=== PATIENT | female | born 1990 | race Caucasian/White ===

== ENCOUNTER 2020-06-03 13:20 | Emergency (ER) | payer OTHER, SELFPAY ==
[2020-06-03 13:37] VITALS: BP 123/86; PULSE 100; RESP 18; TEMP 37.2; O2SAT 97; BMI 43.2
[2020-06-03] MEDS: Lidocaine HCl 2 % MPF 5 ML VIAL SUBCUT (13:56)
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
== END 2020-06-03 14:15 | disposition home or self-care (01) ==
PROVIDERS: Emergency Provider Emergency Medicine Emergency Medical Services; PCP Internal Medicine
DX: S61.411A Laceration without foreign body of right hand, initial encounter (principal); W27.8XXA Contact with other nonpowered hand tool, initial encounter; Y93.89 Activity, other specified; Y92.012 Bathroom of single-family (private) house as the place of occurrence of the external cause; Y99.9 Unspecified external cause status
CPT/HCPCS: 12002; 99283; 99284

== ENCOUNTER → 2020-09-27 08:04 | Outpatient (BNVA) | payer OTHER, SELFPAY | PROVIDERS: PCP Internal Medicine; Visit Provider Surgery ==

== ENCOUNTER 2020-11-14 13:53 | Outpatient (REF) | payer OTHER, SELFPAY ==
--- NOTE | ~2020-11-14 | XR_ITS ---
EXAMINATION: XR CHEST CLINICAL INFORMATION: Moderate/severe obesity due to excessive calories. COMPARISON: Chest: 07/26/2018 TECHNIQUE: 2 views of the chest were obtained. FINDINGS: No significant abnormality is noted involving the heart, lungs, mediastinum, bony thorax or soft tissues. XR/XR chest 2V IMPRESSION: Unremarkable chest examination.
--- NOTE | ~2020-11-14 | US_ITS ---
EXAMINATION: PELVIC ULTRASOUND CLINICAL INFORMATION: Pain COMPARISON: Previous exam most recent March 2019 TECHNIQUE: Transabdominal and transvaginal pelvic ultrasound was performed. Transvaginal exam was performed for better visualization of the uterus and ovaries. FINDINGS: The uterus is anteverted and measures 9.1 x 4 x 5 cm in dimension. The endometrium is difficult to define. Endometrial thickness measures 0.7 cm. The uterus appears heterogeneous in echotexture and is slightly hyperechoic with numerous small cystic areas. Findings are questionable for adenomyomatosis. There are nabothian cysts in the cervix. The ovaries are normal-appearing. The right ovary measures 2.7 x 2 x 1.9 cm and the left ovary measures 3.5 x 1.7 x 2.2 cm. There is no fluid in the pelvis. US/US pelvic and transvaginal IMPRESSION: Heterogeneous appearing uterus questionable for adenomyosis.
== END 2020-11-14 13:54 | disposition home or self-care (01) ==
LOC: HO.HMGCX 13:53
PROVIDERS: PCP Nurse Practitioner Family; Referring Provider Emergency Medicine; Visit Provider Nurse Practitioner Family
DX: R10.2 Pelvic and perineal pain (principal); R05 Cough; E66.01 Morbid (severe) obesity due to excess calories; J45.909 Unspecified asthma, uncomplicated
CPT/HCPCS: 71046; 76830; 76856

== ENCOUNTER 2021-04-28 08:38 | Outpatient (REF) | payer OTHER, SELFPAY ==
[2021-04-28 10:19] LABS: Binax Internal Control QC Valid; Binax Now Covid-19 Ag Negative (Negative)
== END 2021-04-28 08:39 | disposition home or self-care (01) ==
LOC: HO.LAB 08:38
PROVIDERS: Visit Provider Internal Medicine
DX: Z20.822 Contact with and (suspected) exposure to COVID-19 (principal)
CPT/HCPCS: 36415; C9803

== ENCOUNTER 2021-06-28 13:18 | Outpatient (REF) | payer OTHER, SELFPAY ==
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
--- NOTE | 2021-06-28 15:00 | MHC.AU.HAS ---
Hearing Aid Evaluation Date of Visit: 06/28/21 Historical Information: Description of Hearing: Moderate SNHL in the right ear, moderate to moderately-severe SNHL in the left ear. Current personal amplification information, if applicable: 2017 Phonak Audeo N26-Lombir right ear - DAMAGED Summary: New binaural amplification is recommended based on Ms. Adair's hearing loss, the condition of her current hearing aid, and her shared listening needs. Discussed options. Recommend staying with ELLY style hearing aids. Hearing Aid Prescription: Based on the individual?s shared listening needs, communication environments, dexterity, desire for connectivity, and personal preferences, the following prescription for amplification has been made: Right ear: Cosmetic Sales: Phonak Model: Audeo P70-13T Battery Size: 13 Color: P4 Oil Sprayer: 1 M Type of Mold: cShell Left ear: Left ear prescription to be same as Right Hearing Aid above: Cosmetic Sales: Phonak Model: Audeo P70-13T Battery Size: 13 Color: P4 Oil Sprayer: 1 M Type of Mold: cShell Plan of Care: Michel quote will be sent to [facility] after determining her eligibility. Hearing aids will be ordered if/when approved. Primary Diagnosis: H90.3 Bilateral Sensorineural Hearing Loss Signature: Provider: Thu Recio, CCC-A
--- NOTE | 2021-06-28 15:14 | MHC.AU.MED ---
Medical Clearance for Hearing Instrumentation Date: 06/28/21 Patient Name: Rain Adair Date of : 1990 Referring Provider: Shahla Rocha MD We have seen your patient on 06/28/21 and have determined that they are a candidate for amplification (See accompanying report). Specifically, they would benefit from: Hearing aid use in both ears There is a statute that addresses Medical Evaluation Requirements prior to fitting a patient with a hearing aid. According to [place] statute 265 CMR:6.03(1), (a) General. Except as provided in 265 CMR 6.03(1)(b), a asphalt screed operator shall not sell a hearing aid unless the prospective user has presented to the asphalt screed operator a written statement signed by a licensed physician that states that the patient's hearing loss has been medically evaluated and the patient may be considered a candidate for a hearing aid. The medical evaluation must have taken place within the preceding six months. Please note: Due to the [place] Statute referenced above, we cannot accept a signature other than that of a licensed physician. LOW ALTITUDE AIR DEFENSE OFFICER and PA signatures cannot be accepted. I am in agreement with the above recommendation. There is no medical contraindication for hearing instrumentation. Physician Signature Date Physician Name (Printed)
== END 2021-06-28 13:19 | disposition home or self-care (01) ==
LOC: HO.SH 13:18
PROVIDERS: Visit Provider Internal Medicine
DX: H91.91 Unspecified hearing loss, right ear (principal)
CPT/HCPCS: 92557; 92567

== ENCOUNTER 2021-07-05 17:01 | Outpatient (REF) | payer OTHER, SELFPAY | END 2021-07-05 17:02 | disposition home or self-care (01) | LOC: HO.HAP 17:01 | PROVIDERS: Visit Provider Nurse Practitioner Family | DX: Z13.89 Encounter for screening for other disorder (principal) ==

== ENCOUNTER 2021-07-21 14:25 | Outpatient (REF) | payer SELFPAY | END 2021-07-21 14:26 | disposition home or self-care (01) | LOC: HO.HAP 14:25 | PROVIDERS: Visit Provider Nurse Practitioner Family | DX: Z13.89 Encounter for screening for other disorder (principal) ==

== ENCOUNTER 2021-07-31 14:54 | Outpatient (REF) | payer OTHER, SELFPAY | END 2021-07-31 14:55 | disposition home or self-care (01) | LOC: HO.HAP 14:54 | PROVIDERS: Visit Provider Internal Medicine | DX: Z13.89 Encounter for screening for other disorder (principal) ==

== ENCOUNTER 2021-08-03 15:45 | Outpatient (REF) | payer SELFPAY | END 2021-08-03 15:46 | disposition home or self-care (01) | LOC: HO.HAP 15:45 | PROVIDERS: Visit Provider Nurse Practitioner Family | DX: Z13.89 Encounter for screening for other disorder (principal) ==

== ENCOUNTER 2021-08-23 11:14 | Outpatient (REF) | payer OTHER, SELFPAY | END 2021-08-23 11:15 | disposition home or self-care (01) | LOC: HO.HAP 11:14 | PROVIDERS: PCP Internal Medicine; Visit Provider Internal Medicine | DX: Z13.89 Encounter for screening for other disorder (principal) ==

== ENCOUNTER 2021-09-11 15:02 | Outpatient (REF) | payer OTHER, SELFPAY | END 2021-09-11 15:03 | disposition home or self-care (01) | LOC: HO.HAP 15:02 | PROVIDERS: Visit Provider Internal Medicine | DX: Z13.89 Encounter for screening for other disorder (principal) ==

== ENCOUNTER 2021-09-12 13:28 | Outpatient (REF) | payer SELFPAY | END 2021-09-12 13:29 | disposition home or self-care (01) | LOC: HO.HAP 13:28 | PROVIDERS: Visit Provider Internal Medicine | DX: Z13.89 Encounter for screening for other disorder (principal) ==

== ENCOUNTER 2021-09-15 12:13 | Outpatient (REF) | payer SELFPAY | END 2021-09-15 12:14 | disposition home or self-care (01) | LOC: HO.HAP 12:13 | PROVIDERS: Visit Provider Internal Medicine | DX: Z13.89 Encounter for screening for other disorder (principal) ==

== ENCOUNTER 2021-09-19 13:37 | Outpatient (REF) | payer SELFPAY | END 2021-09-19 13:38 | disposition home or self-care (01) | LOC: HO.HAP 13:37 | PROVIDERS: Visit Provider Internal Medicine | DX: Z13.89 Encounter for screening for other disorder (principal) ==

== ENCOUNTER 2021-09-22 11:11 | Outpatient (REF) | payer SELFPAY | END 2021-09-22 11:12 | disposition home or self-care (01) | LOC: HO.HAP 11:11 | PROVIDERS: Visit Provider Internal Medicine | DX: Z13.89 Encounter for screening for other disorder (principal) ==

== ENCOUNTER 2021-09-25 13:15 | Outpatient (REF) | payer SELFPAY | END 2021-09-25 13:16 | disposition home or self-care (01) | LOC: HO.HAP 13:15 | PROVIDERS: Visit Provider Internal Medicine | DX: Z13.89 Encounter for screening for other disorder (principal) ==

== ENCOUNTER 2021-10-02 16:40 | Outpatient (REF) | payer OTHER, SELFPAY ==
--- NOTE | ~2021-10-02 | XR_ITS ---
EXAMINATION: XR LUMBOSACRAL SPINE WITH OBLIQUES CLINICAL INFORMATION: Low back pain COMPARISON: None TECHNIQUE: AP, both oblique, and lateral views of the lumbar spine. Lateral view of the lumbosacral junction. FINDINGS: There is mild curvature of the lumbar spine to the right. Bone alignment is otherwise normal. No fracture or dislocation is seen. Disc spaces are normal. Facet joints are normal. No pars defect is seen. XR/XR lumbar spine 4V min IMPRESSION: Mild curvature of the lumbar spine to the right otherwise unremarkable exam.
== END 2021-10-02 16:41 | disposition home or self-care (01) ==
LOC: HO.XRAY 16:40
PROVIDERS: Absent Provider Internal Medicine; PCP Internal Medicine; Visit Provider Registered Nurse
DX: M54.50 Low back pain, unspecified (principal)
CPT/HCPCS: 72110

== ENCOUNTER 2021-11-21 07:32 | Outpatient (REF) | payer OTHER, SELFPAY ==
[2021-11-21 07:59] LABS: MANUAL DIFF FLAG NO
[2021-11-21 08:35] LABS: Basophils Absolute Auto 0.1 X10*3/uL (0.0-0.2); Basophils Percent Auto 0.8 % (0-2); Eosinophils Absolute Auto 0.1 X10*3/uL (0.0-0.4); Hematocrit 39.3 % (37.0-47.0); Hemoglobin 13.2 g/dl (12.0-16.0); Imm Gran Abs Auto 0.01 X10*3/uL (0.00-0.03); Imm Gran Pct Auto 0.2 % (0.0-0.4); Lymphocytes Absolute Auto 1.8 X10*3/uL (1.2-4.9); Lymphocytes Percent Auto 30.4 % (20-40); Mean Corpuscular HGB Conc 33.6 g/dl (31.0-35.0); Mean Corpuscular Hemoglobin 30.2 pg (27.0-33.0); Mean Corpuscular Volume 89.9 fL (80.0-98.0); Mean Platelet Volume 10.3 fL (9.4-12.3); Monocytes Absolute Auto 0.5 X10*3/uL (0.1-1.2); Monocytes Percent Auto 8.4 % (2-11); Neutrophils Absolute Auto 3.5 x10*3/uL (2.0-8.3); Neutrophils Percent Auto 58.2 % (45-73); Platelet Count 249 X10*3/uL (160-400); Red Blood Count 4.37 X10*6/uL (4.20-5.50); Red Cell Distribution Width 12.1 % (11.0-16.0)
[2021-11-21 08:48] LABS: Estimated Average Glucose 94 mg/dL; Hemoglobin A1c % 4.9 %
[2021-11-21 08:59] LABS: Alanine Aminotransferase 19 U/L (0-31); Albumin Level 4.2 g/dL (3.5-5.0); Alkaline Phosphatase 70 U/L (39-117); Anion Gap 13 (12-20); Aspartate Amino Transferase 17 U/L (5-31); Bilirubin Total 0.5 mg/dL (0.0-1.0); Blood Urea Nitrogen 9 mg/dL (9-16); Carbon Dioxide 25 mmol/L (22-29); Chloride 104 mmol/L (96-108); Cholesterol 141 mg/dL; Estimated Glomerular Filt Rate > 60; Glucose Random 100 mg/dL (60-115); HDL Cholesterol 45 mg/dL; Iron 53 mcg/dL (30-160); LDL Cholesterol Calculated 85 mg/dl; Magnesium 1.9 mg/dL (1.6-2.6); Percent Iron Saturation 17 % (15-50); Potassium 4.4 mmol/L (3.3-5.1); Sodium 138 mmol/L (135-145); Total Iron Binding Capacity 319 mcg/dL (228-428); Total Protein 7.5 g/dL (6.5-8.0); Triglycerides 57 mg/dL; Unsaturated Iron Binding 266 ug/dL
[2021-11-21 09:24] LABS: Ferritin 83 ng/mL (10-122); Thyroid Stimulating Hormone 4.76 uIU/mL (0.32-4.0)
[2021-11-21 09:38] LABS: Vitamin B12 397 pg/mL (200-900)
[2021-11-24 21:55] LABS: Cotinine <2 ng/mL; Nicotine <2 ng/mL
[2021-11-30 06:16] LABS: Vitamin B1 8 nmol/L (8-30)
== END 2021-11-21 07:33 | disposition home or self-care (01) ==
LOC: HO.LAB 07:32
PROVIDERS: PCP Internal Medicine; Visit Provider Surgery
DX: Z01.818 Encounter for other preprocedural examination (principal); E66.01 Morbid (severe) obesity due to excess calories
CPT/HCPCS: 36415; 80053; 80061; 80323; 82306; 82533; 82607; 82728; 82746; 83036; 83540; 83735; 84425; 84443; 85025

== ENCOUNTER 2021-12-01 09:35 | Outpatient (REF) | payer SELFPAY | END 2021-12-01 09:36 | disposition home or self-care (01) | LOC: HO.HAP 09:35 | PROVIDERS: Visit Provider Internal Medicine | DX: Z46.1 Encounter for fitting and adjustment of hearing aid (principal); H90.3 Sensorineural hearing loss, bilateral | CPT/HCPCS: V5267 ==

== ENCOUNTER 2021-12-05 07:57 | Outpatient (REF) | payer SELFPAY | END 2021-12-05 07:58 | disposition home or self-care (01) | LOC: HO.HAP 07:57 | PROVIDERS: Visit Provider Internal Medicine | DX: Z13.89 Encounter for screening for other disorder (principal) ==

== ENCOUNTER 2022-02-07 08:48 | Outpatient (REF) | payer OTHER, SELFPAY | END 2022-02-07 08:49 | disposition home or self-care (01) | LOC: HO.HAP 08:48 | PROVIDERS: Visit Provider Internal Medicine | DX: Z13.89 Encounter for screening for other disorder (principal) ==

== ENCOUNTER 2022-02-15 15:13 | Outpatient (REF) | payer SELFPAY | END 2022-02-15 15:14 | disposition home or self-care (01) | LOC: HO.HAP 15:13 | PROVIDERS: Visit Provider Internal Medicine | DX: Z13.89 Encounter for screening for other disorder (principal) ==

== ENCOUNTER 2022-02-23 15:34 | Outpatient (REF) | payer SELFPAY ==
--- NOTE | 2022-02-26 10:19 | MHC.AU.HFU ---
Hearing Instrument Follow-Up- Binaural Date of Visit: 02/23/22 Right Ear: Tono Lizarragao P70-13T SN: [id number] Color: [place] Repair Warranty: 11/26/2024 Loss and Damage Warranty: 11/26/2024 Battery Size: 13 Ping Pong Table Assembler: 1 M Type of Dome: Medium Vented Type of Mold: cShell SN: [id number] Warranty: 02/26/2022 CHANGED BACK TO DOME - Medium Vented 09/15/2021 Type of Wax Guard: CeruShield Dispensed By: [facility] Date of Fittin09/07/2021 Left Ear: Tono Lizarragao 70-13T SN: [id number] Color: [place] Repair Warranty: 11/26/2024 Loss and Damage Warranty: 11/26/2024 Battery Size: 13 Ping Pong Table Assembler: 1 M Type of Dome: Medium vented Type of Mold: cShell SN: [id number] Warranty: 02/26/2022 CHANGED BACK TO MEDIUM VENTED 09/15/2021 Type of Wax Guard: CeruShield Dispensed By: [facility] Date of Fittin09/07/2021 Follow-Up Summary: Rain returned for programming adjustments and to troubleshoot the connectivity issues with remote sessions. She reported that background noise can some times be overwhelming and she has difficulty hearing certain speakers, especially soft-spoken speakers. Performed feedback manager customs. Adjusted noise management settings in all programs and increased overall volume slightly. Rain noted improvement in office. Discussed switching back to c-shells for increased gain currently limited by feedback curve; however, Rain prefers the domes. Last [employer] session had different serial numbers, perhaps from loaners, which may have caused some of the connectivity issues for previously attempted remote sessions. Opened a remote session with Rain in office today and able to connect from both sides. Recommendations: Hearing instrument maintenance in 6 months, or sooner if needed. Please contact our clinic with any questions or concerns. Diagnosis Code(s): Primary Diagnosis: H90.3 Bilateral Sensorineural Hearing Loss Signature: Provider: Dwaine Guzman, [facility]
== END 2022-02-23 15:35 | disposition home or self-care (01) ==
LOC: HO.HAP 15:34
PROVIDERS: Visit Provider Internal Medicine
DX: Z13.89 Encounter for screening for other disorder (principal)

== ENCOUNTER 2022-05-17 09:13 | Outpatient (REF) | payer SELFPAY | END 2022-05-17 09:14 | disposition home or self-care (01) | LOC: HO.HAP 09:13 | PROVIDERS: Visit Provider Internal Medicine | DX: Z13.89 Encounter for screening for other disorder (principal) ==

== ENCOUNTER 2022-06-13 13:54 | Outpatient (REF) | payer SELFPAY ==
--- NOTE | 2022-06-13 15:22 | MHC.AU.HA3 ---
Hearing Instrument Follow-Up- Binaural Date of Visit: 06/13/22 Right Ear: Make, Model, Color, Serial Number: Tono Sheldon P70-13T SN: [id number] Color: [place] Supply Chain Technician Repair Warranty: 11/26/2024 Supply Chain Technician Loss and Damage Warranty: 11/26/2024 Type of Wax Guard: CeruShield Dispensed By: [facility] Date of Fittin09/07/2021 Left Ear: Make, Model, Color, Serial Number: Tono Sheldon 70-13T SN: [id number] Color: [place] Supply Chain Technician Repair Warranty: 11/26/2024 Supply Chain Technician Loss and Damage Warranty: 11/26/2024 Dispensed By: [facility] Date of Fittin09/07/2021 Follow-Up Summary: Remote visit- Patient reports that since she returned from a trip to [place], her hearing aids have had a robotic, high-pitched quality. She denies any pain or pressure in her ears after being on the airplane. She tried putting the hearing aids in her dehumidifier, which helped for a bit, but soon went to back to sounding off. In [employer], tried making a few changes, such as reducing target gain to 100%, lowering high frequency gain, changing Occlusion compensation, and using automatic fine tuning to adjust for hollow/tinny , but nothing improved the sound. No programming changes were saved. The hearing aids may need to go out for repair. A pair of loaner instruments will be left at the front office administrator (Phondorothy Gonsalezeo P70-13T Trial #[id number], [id number]). She will come by later to seed cone picker the loaners and drop off her hearing aids for repair. Diagnosis Code(s): Primary Diagnosis: H90.3 Bilateral Sensorineural Hearing Loss Signature: Provider: Dwaine Escobar, [facility]
== END 2022-06-13 13:55 | disposition home or self-care (01) ==
LOC: HO.HAP 13:54
PROVIDERS: Visit Provider Internal Medicine
DX: Z13.89 Encounter for screening for other disorder (principal)

== ENCOUNTER 2022-06-19 14:24 | Outpatient (REF) | payer SELFPAY ==
--- NOTE | 2022-06-19 15:40 | MHC.AU.HFU ---
Hearing Instrument Follow-Up- Binaural Date of Visit: 06/19/22 Right Ear: Phonak Audeo P70-13T SN: [id number] Color: [place] Repair Warranty: 11/26/2024 Loss and Damage Warranty: 11/26/2024 Battery Size: 13 Ups Driver: 1 M Type of Dome: Medium Vented Type of Mold: cShell SN: [id number] Warranty: 02/26/2022 CHANGED BACK TO DOME - Medium Vented 09/15/2021 Type of Wax Guard: CeruShield Dispensed By: [facility] Date of Fittin09/07/2021 Left Ear: Phonak Audeo 70-13T SN: [id number] Color: [place] Repair Warranty: 11/26/2024 Loss and Damage Warranty: 11/26/2024 Battery Size: 13 Ups Driver: 1 M Type of Dome: Medium vented Type of Mold: cShell SN: [id number] Warranty: 02/26/2022 CHANGED BACK TO MEDIUM VENTED 09/15/2021 Type of Wax Guard: CeruShield Dispensed By: [facility] Date of Fittin09/07/2021 Follow-Up Summary: The patient is here today for a follow-up. She recently picked up loaner Phonak Audeo P70-13T hearing aids and had her Phonak Audeo P70-13T hearing aids sent out for repair. Her chief complaint with her hearing aids were that they started to sound robotic over the past month. She notes slight improvement with the loaners, but continues to experience difficulty hearing with the hearing aids and states they still sound robotic. She also has noted increased dizzy spells in the past month. We spent time reviewing her 06/28/2021 audiogram together, which reveals a moderate SNHL in the left ear with fair (72%) WRS and a moderately-severe SNHL in the right ear with very poor (32%) WRS. I discussed realistic expectations with hearing aids given very poor clarity of sound in the right ear. I did offer to make some programming adjustments in office, which I did do, but ultimately I recommended an updated audiogram with us, to follow-up with Dr. Lin (ENT), and to try wearing just the left hearing aid at times to see if that improves speech understanding (without the right hearing aid). If the patient perceives improved sound percept with only the left hearing aid, I strongly suggest obtaining a CROS transmitter for the right ear instead of using a hearing aid. 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 In [employer] I changed the dome setting to Power and re-ran the feedback manager managed care. I decreased occlusion from high to weak. I kept gain at 105%. Volume control is enabled. I changed the primary bluetooth device to the LEFT hearing aid, in case she does not wear the right hearing aid. Our office will reach out to the patient for scheduling once we receive the PCP order for an audiogram and have received her repaired hearing aids. Patient is in agreement with this plan. Diagnosis Code(s): Primary Diagnosis: H90.3 Bilateral Sensorineural Hearing Loss Secondary Diagnosis: R42 Dizziness and Giddiness Signature: Provider: Thu Mcclure, CCC-A
== END 2022-06-19 14:25 | disposition home or self-care (01) ==
LOC: HO.HAP 14:24
PROVIDERS: Visit Provider Internal Medicine
DX: Z13.89 Encounter for screening for other disorder (principal)

== ENCOUNTER 2022-06-22 10:27 | Outpatient (REF) | payer SELFPAY ==
--- NOTE | 2022-06-22 14:49 | MHC.AU.HA3 ---
Hearing Instrument Follow-Up- Binaural Date of Visit: 06/22/22 Right Ear: Arnaud, Model, Color, Serial Number: Tono Sheldon P70-13T SN: [id number] Color: [place] [employer] Repair Warranty: 11/26/2024 Transplanter Loss and Damage Warranty: 11/26/2024 Battery Size: 13 Pulp Plant Supervisor/Slim Tube: 1 M Earmold/Dome/CShell/SlimTip:cShell SN: [id number] Warranty: 02/26/2022 CHANGED BACK TO DOME - Medium Vented 09/15/2021 Type of Wax Guard: CeruShield Dispensed By: [facility] Date of Fittin09/07/2021 Left Ear: Arnaud, Model, Color, Serial Number: Tono Sheldon 70-13T SN: [id number] Color: [place] Transplanter Repair Warranty: 11/26/2024 Transplanter Loss and Damage Warranty: 11/26/2024 Battery Size: 13 Pulp Plant Supervisor/Slim Tube: 1 M Earmold/Dome/CShell/SlimTip: cShell SN: [id number] Warranty: 02/26/2022 CHANGED BACK TO MEDIUM VENTED 09/15/2021 Type of Wax Guard: CeruShield Dispensed By: [facility] Date of Fittin09/07/2021 Follow-Up Summary: Remote Adjustments to Loaner Hearing Aids: Rain reported that, even since the last adjustments on 06/19/22, speech still sounds muffled and she has difficulty understanding in certain situations, including hearing on the telephone. Discussed need for updated hearing evaluation, again, as Rain previously reported change in sound quality after a plane ride to [place]. However, today, Rain reported that this has been an ongoing problem for the past year. Rain reportedly tried using only the left hearing aid as recommended at her last appointment; however, all sounds, including speech, were too low. Increased overall volume slightly, left more so than right, and turned off occlusion compensation. Discussed the multiple programming adjustments over the past few months, which does not give herself time to acclimate to any settings and reemphasized realistic expectations of hearing aids. Rain inquired about a cochlear implant, explained not a candidate at this time. Recommendations: Updated audiological evaluation with full reprogramming using real ear measurements. Once hearing aids set to real ear targets, recommend no programming adjustments for at least two weeks to give Rain a chance to acclimate to the settings. Also discussed returning to c-shell ear molds. Diagnosis Code(s):Primary Diagnosis: H90.3 Bilateral Sensorineural Hearing Loss Signature: Provider: Dwaine Guzman, [facility]
== END 2022-06-22 10:28 | disposition home or self-care (01) ==
LOC: HO.HAP 10:27
PROVIDERS: Visit Provider Internal Medicine
DX: Z13.89 Encounter for screening for other disorder (principal)

== ENCOUNTER 2022-06-26 15:43 | Outpatient (REF) | payer SELFPAY ==
--- NOTE | 2022-06-27 10:06 | MHC.AU.HA3 ---
Hearing Instrument Follow-Up- Binaural Date of Visit: 06/26/22 Right Ear: Arnaud, Model, Color, Serial Number: Tono Sheldon [id number] SN: [id number] Color: Silver Brand Strategy Manager Repair Warranty: 11/26/2024 Brand Strategy Manager Loss and Damage Warranty: 11/26/2024 [facility] Service Plan: 09/07/2022 Battery Size: 13 Fire Watcher/Slim Tube: 1 M Earmold/Dome/CShell/SlimTip:cShell SN: [id number] Warranty: 02/26/2022 Type of Wax Guard: CeruShield Dispensed By: [facility] Date of Fittin09/07/2021 Left Ear: Arnaud, Model, Color, Serial Number: Tono Shedlon [id number] SN: [id number] Color: Silver Brand Strategy Manager Repair Warranty: 11/26/2024 Brand Strategy Manager Loss and Damage Warranty: 11/26/2024 [facility] Service Plan: 09/07/2022 Battery Size: 13 Fire Watcher/Slim Tube: 1 M Earmold/Dome/CShell/SlimTip: cShell SN: [id number] Warranty: 02/26/2022 Type of Wax Guard: CeruShield Dispensed By: [facility] Date of Fittin09/07/2021 Follow-Up Summary: Picked up repaired hearing aids and returned loaners. Switched back to c-shells and recalculated settings using NAL-NL2 algorithm. Ran feedback channel development manager and performed real ear measurements with appropriate match to target. Explained purpose of real ear verification and recommended allowing time to acclimate to real ear settings. However, Rain reportedly could not tolerate real ear settings noting a robotic sound with poor clarity. Returned to settings from 06/19/22, changed to c-shells in software, ran feedback channel development manager, and increased to 105% gain level. Although sound quality was not normal, per Rain, it was tolerable. Counseled extensively on realistic expectations and limitations of hearing aids again. Recommendations: Hearing instrument maintenance in 6 months, or sooner if needed. Please contact our clinic with any questions or concerns. Recommendations (Other): Updated audio with subsequent reprogramming, if necessary. Diagnosis Code(s): Primary Diagnosis: H90.3 Bilateral Sensorineural Hearing Loss Signature: Provider: Dwaine Guzman, [facility]
== END 2022-06-26 15:44 | disposition home or self-care (01) ==
LOC: HO.HAP 15:43
PROVIDERS: Visit Provider Internal Medicine
DX: Z13.89 Encounter for screening for other disorder (principal)

== ENCOUNTER 2022-07-09 00:41 | Emergency (ER) | payer OTHER, SELFPAY ==
--- NOTE | ~2022-07-09 | US_ITS ---
EXAMINATION: US ABDOMEN LIMITED CLINICAL INFORMATION: Upper abdominal pain. Elevated LFTs.. COMPARISON: 05/18/2019 TECHNIQUE: Real-time imaging of the right upper quadrant abdominal viscera. FINDINGS: GALLBLADDER: 0.4 cm polyp along the gallbladder wall. The gallbladder is physiologically distended without evidence of stones, sludge, wall thickening or pericholecystic fluid. COMMON BILE DUCT: Normal in caliber measuring 0.2 cm in diameter. FREE FLUID: None. US/US abdomen limited IMPRESSION: 1. No acute findings. 2. 0.4 cm gallbladder wall polyp. No specific follow-up recommended.
[2022-07-09 00:45] VITALS: BP 136/78; PULSE 77; RESP 18; TEMP 36.6; O2SAT 100; BMI 39.4
--- NOTE | 2022-07-09 00:58 | PC.NURSE ---
pt c/o n/v and abd pain, cough for last two weeks, auditory wheezing
--- NOTE | 2022-07-09 00:58 | ED.ABDPAIN ---
HPI - Abdominal Pain General Chief Complaint: Abdominal Pain Stated Complaint: Abd pain Time Seen by Provider: 07/09/22 00:54 Source: patient Mode of arrival: ambulatory Limitations: no limitations History of Present Illness HPI narrative: Patient other healthy been having nausea vomiting diarrhea started earlier today took Pepto-Bismol now complaining of pain in upper abdomen vomited few times prior to arrival no fever no chills no urinary symptoms patient had nasal congestion for last 1 week and been coughing mostly dry cough tested for COVID which was negative Related Data Home Medications Medication Instructions Recorded Confirmed cetirizine 10 mg capsule (All Day 10 mg PO DAILY PRN 09/27/20 09/27/20 Allergy (cetirizine)) fluticasone furoate 200 1 inh inhalation DAILY 09/27/20 09/27/20 mcg-vilanterol 25 mcg/dose inhalation powder (Breo Ellipta) fluticasone propionate 50 1 spray intranasal BID 09/27/20 09/27/20 mcg/actuation nasal spray,suspension (Flonase Allergy Relief) albuterol sulfate 90 mcg/actuation 2 puff inhalation Q4-6H PRN 01/04/22 aerosol inhaler (ProAir HFA) nainepi-spspautjusxow-bxfiktfk 250 tab PO 01/04/22 mg-250 mg-65 mg tablet (Pain Reliever Plus) cholecalciferol (vitamin D3) 50 50 mcg PO DAILY 01/04/22 mcg (2,000 unit) capsule (Vitamin D3) ipratropium bromide 42 mcg (0.06 2 spray intranasal BID 01/04/22 %) nasal spray methyl salicylate 15 %-menthol 10 appl topical 01/04/22 % topical cream (Muscle Rub) montelukast 10 mg tablet 10 mg PO DAILY 01/04/22 meclizine 25 mg tablet 25 mg PO TID PRN 02/05/22 Previous Rx's Medication Instructions Recorded tizanidine 4 mg tablet 4 mg PO BID PRN muscle spasticity 01/04/22 30 days #60 tabs Donut pillow #1 ea 02/05/22 celecoxib 200 mg capsule (Celebrex) 200 mg PO BID PRN pain 30 days #60 02/05/22 caps ondansetron 4 mg disintegrating 4 mg PO Q6-8H PRN nausea and 07/09/22 tablet vomiting #7 tabs Allergies Allergy/AdvReac Type Severity Reaction Status Date / Time amoxicillin [From AUGMENTIN] Allergy Unknown HIVES Verified 07/09/22 00:49 clavulanic acid Allergy Unknown HIVES Verified 07/09/22 00:49 [From AUGMENTIN] augmentin Allergy Unknown Difficulty Uncoded 09/27/20 11:21 Breathing Review of Systems Review of Systems Constitutional : No Weight loss, No Fever, No Chills ENT/Mouth : No sore throat, No Rhinorrhea Eyes: No Eye Pain, No Swelling Cardiovascular : No Chest Pain, no palpitations Respiratory : ++Cough, No Sputum, no shortness of breath Gastrointestinal : ++ Nausea,+ Vomiting, + Diarrhea, + abdominal Pain, no black stools Genitourinary : No Dysuria, No Urinary Frequency Musculoskeletal : No joint pain, No Myalgias, No Joint Swelling Skin : No Skin Lesions, No rash Neuro : No Weakness, No Numbness, No Dizziness, No Headache Psych : No Anxiety/Panic, No Depression Heme/Lymph: No Bruising, No Lymphadenopathy Endocrine : No Polyuria, No Polydipsia All other systems reviewed and are negative Yes all other systems are reviewed and are negative [facility] Past Medical History Medical History Asthma Back pain Morbid obesity PCOS (polycystic ovarian syndrome) Surgical History History of section, low transverse Family History Family History Mother Brain tumor Father No problems noted. Sister No problems noted. Son Asthma Social History Social History Alcohol intake: never Patient Tobacco Use Status: Never used Tobacco Advance Directives: No Advance Directives Information Provided: No Physical Exam ED Vital Signs: Vital Signs - 24 hr 07/09/22 00:45 07/09/22 01:07 07/09/22 02:13 Temperature 97.8 F Pulse Rate 77 69 69 Respiratory Rate 18 16 16 Blood Pressure 136/78 111/63 Pulse Oximetry 100 98 Oxygen Delivery Method Room Air Room Air BMI result Body Mass Index 39.4 Appearance: Alert. Oriented X3. No acute distress. Eyes: PERRLA, No Nystagmus ENT: Pharynx normal. Oral Mucosa moist Neck: Normal inspection. Neck supple. CVS: Normal heart rate and rhythm. Pulses normal. Respiratory: No respiratory distress. Equal air entry bilateral, no wheezing/rales/rhonchi prolonged expiration with frequent dry cough Abdomen: Soft , tender in epigastric area, Iglesias sign negative Bowel sounds are present, no mass palpable, no CVA tenderness Skin: Skin warm and dry. Normal skin color. Normal skin turgor. Extremities: No lower extremity edema. No calf tenderness Neuro: Oriented X 3. No motor deficit. No sensory deficit.No cerebellar signs , cranial nerves II-XII intact Medical Decision Making Medical Decision Making [facility] Narrative: Patient has significant elevated liver enzymes etiology not very clear ultrasound showed small polyp without any obstruction no gallstones patient advised to follow-up with sales representative metals Lab Data [facility] Lab Attestation statement: I reviewed the patient's lab results. 07/09/22 01:14 07/09/22 01:14 Labs: Lab Results 07/09/22 07/09/22 Range/Units 01:14 01:14 WBC 10.1 (4.8-10.8) X10*3/uL RBC 4.41 (4.20-5.50) X10*6/uL Hgb 13.7 (12.0-16.0) g/dl Hct 41.0 (37.0-47.0) % MCV 93.0 (80.0-98.0) fL MCH 31.1 (27.0-33.0) pg MCHC 33.4 (31.0-35.0) g/dl RDW 12.6 (11.0-16.0) % Plt Count 225 (160-400) X10*3/uL MPV 10.1 (9.4-12.3) fL Immature Gran % (Auto) 0.2 (0.0-0.4) % Neut % (Auto) 77.1 H (45-73) % Lymph % (Auto) 12.5 L (20-40) % Vernon % (Auto) 8.3 (2-11) % Eos % (Auto) 1.4 (0-4) % Baso % (Auto) 0.5 (0-2) % Lymph # (Auto) 1.3 (1.2-4.9) X10*3/uL Vernon # (Auto) 0.8 (0.1-1.2) X10*3/uL Eos # (Auto) 0.1 (0.0-0.4) X10*3/uL Baso # (Auto) 0.1 (0.0-0.2) X10*3/uL Abs Immat Gran (auto) 0.02 (0.00-0.03) X10*3/uL Absolute Neuts (auto) 7.8 (2.0-8.3) x10*3/uL Absolute Nucleated RBC 0.000 (0.0-0.012) X10*3/uL Nucleated RBC % (auto) 0.0 (0.0-0.2) /100WBC Sodium 138 (135-145) mmol/L Potassium 3.9 (3.3-5.1) mmol/L Chloride 104 (96-108) mmol/L Carbon Dioxide 26 (22-29) mmol/L Anion Gap 12 (12-20) BUN 8 L (9-16) mg/dL Creatinine 0.81 (0.5-1.4) mg/dL Estim Creat Clear Calc 89.3 Estimated GFR > 60 Random Glucose 109 (60-115) mg/dL Calcium 8.9 (8.4-10.2) mg/dL Total Bilirubin 1.7 H (0.0-1.0) mg/dL Direct Bilirubin 0.8 H (0.0-0.5) mg/dL AST 346 H (5-31) U/L ALT 229 H (0-31) U/L Alkaline Phosphatase 112 (39-117) U/L Total Protein 6.6 (6.5-8.0) g/dL Albumin 4.0 (3.5-5.0) g/dL Lipase 22 (8-78) U/L Medications Administered Discontinued Medications Generic Name Dose Route Start Last Admin Trade Name Freq PRN Reason Stop Dose Admin Albuterol Sulfate 5 mg/ 0 mg 07/09/22 02:00 07/09/22 02:12 Ipratropium [place] 0.5 mg INHALE 07/09/22 02:01 1 each ONCE ONE Administration Famotidine 20 mg 07/09/22 01:49 07/09/22 01:57 Famotidine/Pf 20 Mg/2 Ml Vial IVPUSH 07/09/22 01:50 20 mg ONCE ONE Administration Sodium Chloride 1,000 mls @ 999 mls/hr 07/09/22 01:06 07/09/22 03:04 Ns IV 07/09/22 02:06 Infused .Q1H1M ONE Infusion Ketorolac Tromethamine 30 mg 07/09/22 01:49 07/09/22 01:57 Ketorolac Tromethamine 30 Mg/Ml Vial IVPUSH 07/09/22 01:50 30 mg ONCE ONE Administration Ondansetron HCl 4 mg 07/09/22 01:07 07/09/22 01:57 Ondansetron Hcl 4 Mg/2 Ml Vial IVPUSH 07/09/22 01:08 4 mg ONCE ONE Administration Discharge Plan Discharge Clinical Impression: Gastroenteritis, Elevated LFTs, Gallbladder polyp Patient Disposition: Home, Self-Care Instructions: Gastroenteritis (ED) Additional Instructions: You have elevated liver function test etiology not very clear You to follow-up with sales representative metals Follow-up with PCP Medicine for nausea as prescribed Prescriptions: New ondansetron 4 mg tablet,disintegrating 4 mg PO Q6-8H PRN (Reason: nausea and vomiting) Qty: 7 0RF No Action fluticasone propionate [Flonase Allergy Relief] 50 mcg/actuation spray,suspension 1 spray intranasal BID Rx Instructions: administer into each nostril All Day Allergy (cetirizine) 10 mg capsule 10 mg PO DAILY PRN Breo Ellipta 200-25 mcg/dose blister with device 1 inh inhalation DAILY cholecalciferol (vitamin D3) [Vitamin D3] 50 mcg (2,000 unit) capsule 50 mcg PO DAILY Muscle Rub 15-10 % cream topical Pain Reliever Plus 250-250-65 mg tablet PO ipratropium bromide 42 mcg (0.06 %) spray,non-aerosol 2 spray intranasal BID montelukast 10 mg tablet 10 mg PO DAILY albuterol sulfate [ProAir HFA] 90 mcg/actuation HFA aerosol inhaler 2 puff inhalation Q4-6H PRN tizanidine 4 mg tablet 4 mg PO BID PRN (Reason: muscle spasticity) 30 Days Qty: 60 1RF meclizine 25 mg tablet 25 mg PO TID PRN (DME) Wong joseph Misc See Rx Instructions .Route Qty: 1 0RF Rx Instructions: As directed celecoxib [Celebrex] 200 mg capsule 200 mg PO BID PRN (Reason: pain) 30 Days Qty: 60 0RF Rx Instructions: Take it with food, avoid other NSAIDs while taking this. Referrals: Rachel Last MD [Physician] - 3 days Stand Alone Forms: Work/School Release
[2022-07-09 01:07] VITALS: BP 111/63; PULSE 69; RESP 16; O2SAT 98
[2022-07-09 01:19] LABS: MANUAL DIFF FLAG NO
[2022-07-09 01:20] LABS: Basophils Absolute Auto 0.1 X10*3/uL (0.0-0.2); Basophils Percent Auto 0.5 % (0-2); Eosinophils Absolute Auto 0.1 X10*3/uL (0.0-0.4); Eosinophils Percent Auto 1.4 % (0-4); Hemoglobin 13.7 g/dl (12.0-16.0); Imm Gran Abs Auto 0.02 X10*3/uL (0.00-0.03); Imm Gran Pct Auto 0.2 % (0.0-0.4); Lymphocytes Absolute Auto 1.3 X10*3/uL (1.2-4.9); Lymphocytes Percent Auto 12.5 % (20-40); Mean Corpuscular HGB Conc 33.4 g/dl (31.0-35.0); Mean Corpuscular Hemoglobin 31.1 pg (27.0-33.0); Mean Platelet Volume 10.1 fL (9.4-12.3); Monocytes Absolute Auto 0.8 X10*3/uL (0.1-1.2); Monocytes Percent Auto 8.3 % (2-11); Neutrophils Absolute Auto 7.8 x10*3/uL (2.0-8.3); Neutrophils Percent Auto 77.1 % (45-73); Platelet Count 225 X10*3/uL (160-400); Red Blood Count 4.41 X10*6/uL (4.20-5.50); Red Cell Distribution Width 12.6 % (11.0-16.0); White Blood Count 10.1 X10*3/uL (4.8-10.8)
[2022-07-09 01:36] LABS: Alanine Aminotransferase 229 U/L (0-31); Alkaline Phosphatase 112 U/L (39-117); Anion Gap 12 (12-20); Aspartate Amino Transferase 346 U/L (5-31); Bilirubin Direct 0.8 mg/dL (0.0-0.5); Bilirubin Total 1.7 mg/dL (0.0-1.0); Blood Urea Nitrogen 8 mg/dL (9-16); Calcium 8.9 mg/dL (8.4-10.2); Carbon Dioxide 26 mmol/L (22-29); Chloride 104 mmol/L (96-108); Creatinine Clr Calc Pharmacy 89.3; Estimated Glomerular Filt Rate > 60; Glucose Random 109 mg/dL (60-115); Lipase 22 U/L (8-78); Potassium 3.9 mmol/L (3.3-5.1); Sodium 138 mmol/L (135-145); Total Protein 6.6 g/dL (6.5-8.0)
[2022-07-09] MEDS: ondansetron HCL 4 MG/2 ML VIAL IVPUSH (01:57)
[2022-07-09] MEDS: 0.9 % Sodium Chloride 1,000 ML 999 ML IV (01:57)
[2022-07-09] MEDS: Ketorolac Tromethamine 30 MG/ML VIAL IVPUSH (01:57)
[2022-07-09] MEDS: Famotidine/PF 20 MG/2 ML VIAL IVPUSH (01:57)
[2022-07-09 02:13] VITALS: PULSE 69; RESP 16; O2SAT 98
--- NOTE | 2022-07-09 02:19 | PC.NURSE ---
aox4, no apparent distress, resting quietly with minor son at bedside
[2022-07-09 04:32] LABS: Appearance Urine Clear; Color Urine Yellow; Glucose Urine UA Negative (Negative); Leukocyte Esterase Urine Negative (Negative); Nitrite Urine Negative (Negative); PH 6.5 (5.0-9.0); Specific Gravity - Urine <= 1.005 (1.005-1.025); Urine Blood Negative (Negative); Urine Ketones Negative (Negative); Urine Protein Negative (Neg-Trace)
--- NOTE | 2022-07-09 04:54 | PC.NURSE ---
pt states takes pre-workout regularly (6 days/wk), DR Borges made aware, per Dr Borges discontinue use of pre-workout
[2022-07-09 04:58] VITALS: BP 104/62; PULSE 92; RESP 16; O2SAT 100
--- NOTE | 2022-07-09 04:59 | PC.NURSE ---
Discharge instructions given/explained to pt No apparent distress aox4 Ambulates safely/independently IV cath intact upon removal
== END 2022-07-09 05:01 | disposition home or self-care (01) ==
PROVIDERS: Emergency Provider Internal Medicine; PCP Internal Medicine
DX: K52.9 Noninfective gastroenteritis and colitis, unspecified (principal); R74.01 Elevation of levels of liver transaminase levels; K82.4 Cholesterolosis of gallbladder; R11.2 Nausea with vomiting, unspecified; R10.9 Unspecified abdominal pain
CPT/HCPCS: 36415; 76705; 80048; 80076; 81003; 83690; 85025; 94640; 96361; 96374; 96375; 99284; 99285; J1885; J2405

== ENCOUNTER 2022-07-27 13:26 | Outpatient (REF) | payer OTHER, SELFPAY | END 2022-07-27 13:27 | disposition home or self-care (01) | LOC: HO.HAP 13:26 | PROVIDERS: Visit Provider Internal Medicine | DX: Z13.89 Encounter for screening for other disorder (principal) ==

== ENCOUNTER 2022-08-23 16:19 | Outpatient (REF) | payer OTHER, SELFPAY | END 2022-08-23 16:20 | disposition home or self-care (01) | LOC: HO.HAP 16:19 | PROVIDERS: Visit Provider Internal Medicine | DX: Z13.89 Encounter for screening for other disorder (principal) ==

== ENCOUNTER 2022-08-27 16:15 | Outpatient (REF) | payer SELFPAY | END 2022-08-27 16:16 | disposition home or self-care (01) | LOC: HO.HAP 16:15 | PROVIDERS: Visit Provider Internal Medicine | DX: Z13.89 Encounter for screening for other disorder (principal) ==

== ENCOUNTER 2022-10-05 15:24 | Outpatient (REF) | payer OTHER, SELFPAY ==
--- NOTE | 2022-10-08 09:18 | MHC.AU.AHA ---
Adult Audiological Evaluation Date of Visit: 10/05/22 Fire Fighting Equipment Specialist Used: No Reason for Appointment: Audiologic re-evaluation due to increasing hearing difficulties. Rain has been reporting a significant change in the sound quality of her hearing aids for at least 6 months and has described it as a robotic or muffled sound, despite numerous hearing aid adjustments. Today she notes that the quality of the sound seems better in the morning and then gradually changes throughout the day. Rain has used clinic loaner hearing aids which are from the same make and technology levels, but rechargeable, and thinks the sound is overall a bit better, but the sound quality still seems to decrease as the day goes on. Last audiologic testing was performed in June 2021 with results indicating overall stable hearing thresholds compared to 2019 from [facility] (which had shown a sudden decrease in left ear thresholds compared to 2017). However, speech discrimination ability had significant decreased , right ear greater than left. Rain reports no further investigation had been performed in 2019 or 2021 to determine the progressively decrease in hearing and speech discrimination. Medical History: Medical History: Asthma Allergies: Augmentin, amoxicillin, clavulanic acid Medication List: Phentermine, kiuf-rti-keemepd allergy medication, and control. Hearing Instrument History- Right Ear: Jig Inspector: PhonAutoMedx Model: Audeo P70-13T Serial Number: Intelliworks Audeo P70-13T SN: [id number] Color: [place] Battery Size: 13 Repair Warranty: 11/26/2024 Loss and Damage Warranty: 11/26/2024 Service Plan: 09/07/2022 Dispensed By: [facility] Date of Fittin09/07/2021 Hearing Instrument History- Left Ear: Jig Inspector: Phonak Model: Audeo P70-13T Serial Number: Phonak Audeo 70-13T SN: [id number] Color: [place] Battery Size: 13 Warranty: 11/26/2024 Loss and Damage Warranty: 11/26/2024 Service Plan: 09/07/2022 Dispensed By: [facility] Date of Fittin09/07/2021 Otoscopy: Right Ear: Unremarkable Left Ear: Unremarkable Tympanometry: Tympanometry performed due to: To assess integrity of the middle ear system Right Ear: Normal Middle Ear System (Type A) Left Ear: Normal Middle Ear System (Type A) Hearing Evaluation: Transducer(s) Used: Insert Earphones Bone Conduction Method: Conventional Audiometry Stimuli Used: Pure Tones Right Ear: Description of Hearing: Severe rising to moderately-severe sensorineural hearing loss with 32% speech understanding. Left Ear: Description of Hearing: Moderately-severe to severe sensorineural hearing loss with 52% speech understanding. Most Comfortable Level (MCL): Right Ear: Right ear: 95-100 dB HL Left ear: 90 dB HL Comparison: Compared to most recent evaluation: Compared to June 2021 results, overall hearing thresholds for both ears have decreased 5-15 dB. Speech discrimination for the left ear has decreased from 72% to 52% today with the right ear being stable at 32%. Interpretation of Results: There has been another significant change in Rain's hearing again within the past year. In particular, the decreasing speech discrimination which in 2019 was at 88% for the right ear and 96% for the left ear is now 32% and 52% respectively, is the reason Rain is now reporting the quality of sound she hears is robotic and muffled . Although not officially documented with testing today, she is also demonstrating some reduced dynamic range of hearing which may relate to some sound distortion. I extensively discussed the decreasing hearing and it's relation to the decreasing speech discrimination and sound quality. Once speech understanding in about 50% and poorer, hearing aids will not improve the clarity of speech, but will help with sound awareness. Also discussed how fatigue and stress can increase auditory processing ability which may relate to her perception of fluctuating sound quality and being better in the morning, then decreasing at night. Hearing aid adjustments were made today to try to help with the reduced dynamic range to lessen the chance of distortion. An appointment is scheduled for 10/08/22 to determine if the adjustments are helpful. Recommendations: Audiological re-evaluation in 6 months. Advise returning to [employer] Dr. Jonn Lin as soon as possible for further investigation of the change in hearing, as well as to start the discussion regarding possible candidacy for Cochlear Implant(s). Diagnosis: Primary Diagnosis: H90.3 Bilateral Sensorineural Hearing Loss Services Performed: Comprehensive Audiological Evaluation (CPT 26632) Tympanometry (CPT 61413) Signature: Provider: Dwaine Raza, [facility]
== END 2022-10-05 15:25 | disposition home or self-care (01) ==
LOC: HO.SH 15:24
PROVIDERS: Visit Provider General Practice
DX: Z01.118 Encounter for examination of ears and hearing with other abnormal findings (principal); Z46.1 Encounter for fitting and adjustment of hearing aid; H90.3 Sensorineural hearing loss, bilateral
CPT/HCPCS: 92557; 92567; V5020

== ENCOUNTER 2022-10-08 10:20 | Outpatient (REF) | payer OTHER, SELFPAY | END 2022-10-08 10:21 | disposition home or self-care (01) | LOC: HO.HAP 10:20 | PROVIDERS: Visit Provider Internal Medicine | DX: Z13.89 Encounter for screening for other disorder (principal) ==

== ENCOUNTER 2022-11-29 11:29 | Outpatient (REF) | payer OTHER, SELFPAY ==
[2022-11-30 11:44] LABS: BV Int Neg Control Negative (Negative); BV Int Pos Control Positive (Positive)
== END 2022-11-29 11:30 | disposition home or self-care (01) ==
LOC: HO.HHCLNP 11:29
PROVIDERS: Visit Provider Emergency Medicine
DX: N89.8 Other specified noninflammatory disorders of vagina (principal)
CPT/HCPCS: 87086; 87480; 87510; 87660

== ENCOUNTER 2023-09-13 05:31 | Emergency (ER) | payer MEDICAID, SELFPAY ==
--- NOTE | ~2023-09-13 | US_ITS ---
EXAMINATION: US TRANSVAGINAL US TRANSABDOMINAL INDICATION: vaginal bleeding in 1st trimester COMPARISON: None. TECHNIQUE: Transabdominal and transvaginal pelvic ultrasound was performed. Color and spectral Doppler evaluation of the vasculature. FINDINGS: Single intrauterine is visualized. There is an oval anechoic structure eccentrically positioned within the uterine fundus, indicative of an early gestational sac. A yolk sac and pole are identified. The crown rump length measures approximately 0.31 cm, corresponding to a gestational age of 6 weeks and 0 days. A heart rate of 85 beats per minute is identified. Both ovaries appear unremarkable. No adnexal masses are identified. The right ovary measures 2.4 x 2 x 1.5 cm. The left ovary measures 2.6 x 3.3 x 2.7 cm. Arterial and venous waveforms are identified in both ovaries on spectral Doppler assessment. There is no significant free pelvic fluid. US/US OB pelvic and transvaginal IMPRESSION: Single living intrauterine with a sonographic estimated gestational age of 6 weeks and 0 days, corresponding with an Estimated Due Date of 05/08/2024.
[2023-09-13 06:22] VITALS: BP 114/81; PULSE 88; RESP 16; TEMP 37.2; O2SAT 100; BMI 43.0
[2023-09-13 06:42] LABS: MANUAL DIFF FLAG NO
[2023-09-13 06:44] LABS: Basophils Absolute Auto 0.1 X10*3/uL (0.0-0.2); Basophils Percent Auto 1.2 % (0-2); Eosinophils Absolute Auto 0.2 X10*3/uL (0.0-0.4); Eosinophils Percent Auto 2.7 % (0-4); Hematocrit 36.5 % (37.0-47.0); Hemoglobin 12.5 g/dl (12.0-16.0); Imm Gran Abs Auto 0.02 X10*3/uL (0.00-0.03); Imm Gran Pct Auto 0.3 % (0.0-0.4); Lymphocytes Absolute Auto 1.6 X10*3/uL (1.2-4.9); Lymphocytes Percent Auto 23.3 % (20-40); Mean Corpuscular HGB Conc 34.2 g/dl (31.0-35.0); Mean Corpuscular Hemoglobin 31.5 pg (27.0-33.0); Mean Corpuscular Volume 91.9 fL (80.0-98.0); Mean Platelet Volume 9.8 fL (9.4-12.3); Monocytes Absolute Auto 0.6 X10*3/uL (0.1-1.2); Monocytes Percent Auto 8.7 % (2-11); Neutrophils Absolute Auto 4.3 x10*3/uL (2.0-8.3); Neutrophils Percent Auto 63.8 % (45-73); Platelet Count 197 X10*3/uL (160-400); Red Blood Count 3.97 X10*6/uL (4.20-5.50); Red Cell Distribution Width 13.2 % (11.0-16.0); White Blood Count 6.7 X10*3/uL (4.8-10.8)
[2023-09-13 06:55] LABS: Anion Gap 10 (12-20); Blood Urea Nitrogen 6 mg/dL (9-16); Calcium 8.8 mg/dL (8.4-10.2); Carbon Dioxide 25 mmol/L (22-29); Chloride 107 mmol/L (96-108); Creatinine Clr Calc Pharmacy 119.4; Estimated Glomerular Filt Rate > 60; Glucose Random 101 mg/dL (60-115); Potassium 3.9 mmol/L (3.3-5.1); Sodium 138 mmol/L (135-145)
[2023-09-13 07:48] LABS: HCG Quantitative 32838 mIU/mL
--- NOTE | 2023-09-13 07:55 | ED.FEMALEGU ---
HPI - Female Genitourinary General Chief complaint: Urogenital-Female Stated complaint: vaginal bleeding, Time Seen by Provider: 09/13/23 07:22 Source: patient Mode of arrival: ambulatory Limitations: no limitations History of Present Illness ED Provider: Roger TY HPI Narrative: This is a 33 year old f A1 hx of PCOS, obesity,asthma, back pain presenting w/ abdominal cramping and vaginal bleeding since this morning. Reports she went to the bathroom wiped and noted dark red blood on toilet paper and blood clots in the toilet. Reports lower abd cramping that is constant since this am. No bleeding d/o. Not on blood thinenrs. No hx of misscairages in the past. On prenatals has not yet seen OBGYN. LMP is unclear ? early June per her PCP she says or July 25. No reported abd trauma. No cp, sob, nausea, vomiting, headache, vision changes, headache, fevers, chills, diarrhea. Related Data Home Medications ?Medication ?Instructions ?Recorded ?Confirmed cetirizine 10 mg capsule (All Day 10 mg PO DAILY PRN 09/27/20 09/27/20 Allergy (cetirizine)) fluticasone furoate 200 1 inh inhalation DAILY 09/27/20 09/27/20 mcg-vilanterol 25 mcg/dose inhalation powder (Breo Ellipta) fluticasone propionate 50 1 spray intranasal BID 09/27/20 09/27/20 mcg/actuation nasal spray,suspension (Flonase Allergy Relief) albuterol sulfate 90 mcg/actuation 2 puff inhalation Q4-6H PRN 01/04/22 aerosol inhaler (ProAir HFA) ijfrpwu-sfrzvnxzwonlm-gxoheptc 250 tab PO 01/04/22 mg-250 mg-65 mg tablet (Pain Reliever Plus) cholecalciferol (vitamin D3) 50 50 mcg PO DAILY 01/04/22 mcg (2,000 unit) capsule (Vitamin D3) ipratropium bromide 42 mcg (0.06 2 spray intranasal BID 01/04/22 %) nasal spray methyl salicylate 15 %-menthol 10 appl topical 01/04/22 % topical cream (Muscle Rub) montelukast 10 mg tablet 10 mg PO DAILY 01/04/22 meclizine 25 mg tablet 25 mg PO TID PRN 02/05/22 Previous Rx's ?Medication ?Instructions ?Recorded tizanidine 4 mg tablet 4 mg PO BID PRN muscle spasticity 01/04/22 30 days #60 tabs Donut pillow #1 ea 02/05/22 celecoxib 200 mg capsule (Celebrex) 200 mg PO BID PRN pain 30 days #60 02/05/22 caps ondansetron 4 mg disintegrating 4 mg PO Q6-8H PRN nausea and 07/09/22 tablet vomiting #7 tabs Allergies Allergy/AdvReac Type Severity Reaction Status Date / Time amoxicillin [From AUGMENTIN] Allergy Unknown HIVES Verified 09/13/23 06:27 clavulanic acid Allergy Unknown HIVES Verified 09/13/23 06:27 [From AUGMENTIN] augmentin Allergy Unknown Difficulty Uncoded 09/13/23 06:27 Breathing Review of Systems Review of Systems: Yes all other systems are reviewed and are negative PMFSH Past Medical History Attestation statement: The following information was validated with the patient. Source: old records reviewed and nursing notes reviewed Medical History Asthma Back pain Morbid obesity PCOS (polycystic ovarian syndrome) Surgical History History of section, low transverse Family History Family History Mother Brain tumor Father No problems noted. Sister No problems noted. Son Asthma Social History Social History Alcohol intake: never Patient Tobacco Use Status: Never used Tobacco Advance Directives: No Do you have a plan to hurt others: No Plan Physical Exam Vital Signs: Vital Signs: Last Vital Signs Temp 98.9 F 09/13/23 06:22 Pulse 79 09/13/23 09:27 Resp 16 09/13/23 09:27 BP 107/56 L 09/13/23 09:27 Pulse Ox 100 09/13/23 09:27 O2 Del Method Room Air 09/13/23 09:27 BMI result Body Mass Index 43.0 vss Appearance: Alert.? Oriented X3.? No acute distress.? Head: Normocephalic, atraumatic, no step-offs or deformities Eyes: Pupils equal, round and reactive to light.? Neck: Normal inspection.? Neck supple.? CVS: Normal heart rate and rhythm.? Pulses normal.? Respiratory: No respiratory distress.? Breath sounds normal.? Abdomen: Soft and lower abd discomfort b/l and in suprapubic region on exam. Sensative: Closed cervical os, yellow/ green d/c in vaginal canal w/ small amount of dark red/brown blood. No chandelier sign. Tolerated exam well. 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 Skin: Skin warm and dry.? Normal skin color.? Normal skin turgor.? Extremities: No lower extremity edema.? No calf ttp. 5/5 strength to bilateral upper and lower extremities Neuro: Oriented X 3.? No motor deficit.? No sensory deficit. CN 2-12 intact Course Reevaluation(s) Reevaluation #1: CBC unremarkable. Chemistry no acute findings requiring intervention. Beta hCG 32,832, patient is likely 6-9 weeks based off this number. UA without infection. Positive urine test. Trichomonas and yeast negative. Gonorrhea and chlamydia still pending. Ultrasound still pending. Time: 10:21 Reevaluation #2: Ultrasound showing single live intrauterine with sonographic estimated gestational age of 6 weeks and 0 days corresponding with estimated due date of 05/08/2024. I did educate patient that this is likely a threatened and/or abnormal bleeding in 1st trimester . Educated her to continue taking prenatals, follow-up hCG in 48 hours. She should return with new or worsening symptoms and was educated on these. Patient feeling better. Educated patient on diagnosis and treatment plan, answered all question, patient verbalizes understanding. At this time patient will be discharged home, advised to return with new or worsening symptoms. Educated on worrisome signs and symptoms and when to return. At this time I feel comfortable discharge home. Time: 10:57 Reevaluation #3: Rh positive no indication for RhoGAM. Medical Decision Making Medical Decision Making [facility] Narrative: 0800 33 yo f presents w/ lower abd cramping and vaginal bleeding since this AM PE Closed cervical os, yellow/ green d/c in vaginal canal w/ small amount of dark red/brown blood. No chandelier sign. Tolerated exam well. 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 hx and pe concerning for misscairage vs bleeding in 1st trimester vs ovarian cyst. Unlikley traumatic injury, ectopic, torsion. Will rule out STDs and UTI. Unlikely appendicitis, cholecystitis, diverticulitis, obstruction, acute abdomen. No signs of hemodynamic instability Plan- labs, imaging, urine, swabs Differential Diagnosis Differential Diagnoses: The differential diagnosis associated with the presentation includes hx and pe concerning for misscairage vs bleeding in 1st trimester vs ovarian cyst. Unlikley traumatic injury, ectopic, torsion. Will rule out STDs and UTI .Unlikely appendicitis, cholecystitis, diverticulitis, obstruction, acute abdomen. No signs of hemodynamic instability Admission/Observation Consideration of admission/observation: Escalation of care including admission/observation considered possible Lab Data MDM Lab Attestation statement: I reviewed the patient's lab results. 09/13/23 06:34 09/13/23 06:34 Labs: Lab Results 09/13/23 09/13/23 09/13/23 Range/Units 06:34 08:00 09:33 WBC 6.7 (4.8-10.8) X10*3/uL RBC 3.97 L (4.20-5.50) X10*6/uL Hgb 12.5 (12.0-16.0) g/dl Hct 36.5 L (37.0-47.0) % MCV 91.9 (80.0-98.0) fL MCH 31.5 (27.0-33.0) pg MCHC 34.2 (31.0-35.0) g/dl RDW 13.2 (11.0-16.0) % Plt Count 197 (160-400) X10*3/uL MPV 9.8 (9.4-12.3) fL Immature Gran % (Auto) 0.3 (0.0-0.4) % Neut % (Auto) 63.8 (45-73) % Lymph % (Auto) 23.3 (20-40) % [place] % (Auto) 8.7 (2-11) % Eos % (Auto) 2.7 (0-4) % Baso % (Auto) 1.2 (0-2) % Lymph # (Auto) 1.6 (1.2-4.9) X10*3/uL Martin # (Auto) 0.6 (0.1-1.2) X10*3/uL Eos # (Auto) 0.2 (0.0-0.4) X10*3/uL Baso # (Auto) 0.1 (0.0-0.2) X10*3/uL Abs Immat Gran (auto) 0.02 (0.00-0.03) X10*3/uL Absolute Neuts (auto) 4.3 (2.0-8.3) x10*3/uL Absolute Nucleated RBC 0.000 (0.0-0.012) X10*3/uL Nucleated RBC % (auto) 0.0 (0.0-0.2) /100WBC Sodium 138 (135-145) mmol/L Potassium 3.9 (3.3-5.1) mmol/L Chloride 107 (96-108) mmol/L Carbon Dioxide 25 (22-29) mmol/L Anion Gap 10 L (12-20) BUN 6 L (9-16) mg/dL Creatinine 0.66 (0.5-1.4) mg/dL Estim Creat Clear Calc 119.4 Estimated GFR > 60 Random Glucose 101 (60-115) mg/dL Calcium 8.8 (8.4-10.2) mg/dL Beta HCG, Quant 45753 mIU/mL Urine Color Yellow Urine Appearance Clear Urine pH 7.0 (5.0-9.0) Ur Specific [place] <= 1.005 (1.005-1.025) Urine Protein Negative (Neg-Trace) mg/dL Urine Glucose (UA) Negative (Negative) mg/dL Urine Ketones Negative (Negative) mg/dL Urine Blood Small (1+) H (Negative) Urine Nitrite Negative (Negative) Ur Leukocyte Esterase Negative (Negative) Urine RBC 0-2 (0-2) /HPF Urine WBC 0-5 (0-5) /HPF Ur Squamous Epith Cells 0-2 (0-2) /HPF Urine Bacteria None Seen (None Seen) Hyaline Casts 0-2 (0-2) /LPF Urine Test POSITIVE H (NEGATIVE) Blood Type O Positive Independent Interpretation I performed an independent interpretation of an: Ultrasound Radiology Impression Discussion of test interpretation with radiology: I have reviewed the radiologist's reading. Independent Historian Clinical information obtained from an independent historian. History obtained from or confirmed by: Spouse (significant other at bedside ) External Record Review External record reviewed: Office record, Outpatient record and Prior outpatient labs Chronic Conditions Patient?s care impacted by: Other (obesity, PCOS, asthma ) Critical Care Time Critical Care Time Critical Care Time: Yes Total Critical Care Time: 45 Attestation: I attest to this time spent taking care of the patient, obtaining history, physical, reviewing labs, imaging, speaking to my attending, specialist or hospitalist. Discharge Plan Discharge Clinical Impression: Intrauterine , Vaginal bleeding in , Abdominal cramping, Threatened Patient Disposition: Home, Self-Care Instructions: Threatened Miscarriage (ED), (ED), Abdominal Pain (ED), Abdominal Pain in (ED) Additional Instructions: Take your medications as prescribed. If you were prescribed antibiotics today, it is important that you take your medication to their entirety, do not skip any doses, do not finish them early. Follow-up with your primary care provider this week. Return to the emergency department with new or worsening symptoms. Such as fevers, chills, chest pain, shortness of breath, nausea, vomiting, dizziness, headache, vision changes, lethargy In case of emergency call 911 Return if you are bleeding through more than 2 pads per hour. Or with any new or worsening symptoms. Follow-up in 48 hours for repeat beta hCG. Your value today was 32,832. Ultrasound results can be found below. Continue taking your vitamins. Call your OBGYN today to inform them of these findings and changes. Prescriptions: No Action ondansetron 4 mg tablet,disintegrating 4 mg PO Q6-8H PRN (Reason: nausea and vomiting) Qty: 7 0RF fluticasone propionate [Flonase Allergy Relief] 50 mcg/actuation spray,suspension 1 spray intranasal BID Rx Instructions: administer into each nostril All Day Allergy (cetirizine) 10 mg capsule 10 mg PO DAILY PRN Breo Ellipta 200-25 mcg/dose blister with device 1 inh inhalation DAILY cholecalciferol (vitamin D3) [Vitamin D3] 50 mcg (2,000 unit) capsule 50 mcg PO DAILY Muscle Rub 15-10 % cream topical Pain Reliever Plus 250-250-65 mg tablet PO ipratropium bromide 42 mcg (0.06 %) spray,non-aerosol 2 spray intranasal BID montelukast 10 mg tablet 10 mg PO DAILY albuterol sulfate [ProAir HFA] 90 mcg/actuation HFA aerosol inhaler 2 puff inhalation Q4-6H PRN tizanidine 4 mg tablet 4 mg PO BID PRN (Reason: muscle spasticity) 30 Days Qty: 60 1RF meclizine 25 mg tablet 25 mg PO TID PRN (DME) Donioana joseph Misc See Rx Instructions .Route Qty: 1 0RF Rx Instructions: As directed celecoxib [Celebrex] 200 mg capsule 200 mg PO BID PRN (Reason: pain) 30 Days Qty: 60 0RF Rx Instructions: Take it with food, avoid other NSAIDs while taking this. Referrals: Shahla Person MD [Primary Care Provider] - 2 days Stand Alone Forms: Work/School Release Print Language: Greek
[2023-09-13 08:28] LABS: Appearance Urine Clear; Color Urine Yellow; Glucose Urine UA Negative (Negative); Leukocyte Esterase Urine Negative (Negative); Nitrite Urine Negative (Negative); Specific Gravity - Urine <= 1.005 (1.005-1.025); UMIC TRIGGER UACC YES; Urine Blood Small (1+) (Negative); Urine Ketones Negative (Negative); Urine Pregnancy POSITIVE (NEGATIVE); Urine Protein Negative (Neg-Trace)
[2023-09-13 08:30] LABS: UPreg QC Valid YES
[2023-09-13 08:36] LABS: Bacteria Urine None Seen (None Seen); Hyaline Casts Urine 0-2 /LPF (0-2); RBC Urine 0-2 /HPF (0-2); Squamous Epithelial Cell Urine 0-2 /HPF (0-2); WBC Urine 0-5 /HPF (0-5)
[2023-09-13 09:27] VITALS: BP 107/56; PULSE 79; RESP 16; O2SAT 100
[2023-09-13 11:07] LABS: Bacterial Vaginosis PCR NEGATIVE (Negative); Candida Group PCR DETECTED (Not Detect); Candida glab krusei PCR NOT DETECTED (Not Detect); Trichomonas vaginalis PCR NOT DETECTED (Not Detect)
[2023-09-13 11:10] VITALS: BP 107/56; PULSE 79; RESP 16; TEMP 36.8; O2SAT 100
[2023-09-13 11:34] LABS: CT PCR NOT DETECTED (Not Detect.); NG PCR NOT DETECTED (Not Detect.)
== END 2023-09-13 11:14 | disposition home or self-care (01) ==
PROVIDERS: Physician Assistant; Emergency Provider Emergency Medicine Emergency Medical Services; PCP Internal Medicine
DX: O20.0 Threatened abortion (principal); Z3A.01 Less than 8 weeks gestation of pregnancy; R10.9 Unspecified abdominal pain; J45.909 Unspecified asthma, uncomplicated; E28.2 Polycystic ovarian syndrome
CPT/HCPCS: 0352U; 0353U; 36415; 76801; 76817; 80048; 81001; 81025; 84702; 85025; 86900; 86901; 99283

== ENCOUNTER 2023-10-07 11:17 | Outpatient (REF) | payer MEDICAID, SELFPAY ==
[2023-10-07 14:07] LABS: Glucose 1 Hour PP 50gm Dose 104 mg/dL (60-140)
== END 2023-10-07 11:18 | disposition home or self-care (01) ==
LOC: HO.LAB 11:17
PROVIDERS: Visit Provider Advanced Practice Midwife
DX: E28.2 Polycystic ovarian syndrome (principal); Z68.41 Body mass index [BMI] 40.0-44.9, adult
CPT/HCPCS: 36415; 82950

== ENCOUNTER 2023-10-07 12:46 | Outpatient (REF) | payer MEDICAID, SELFPAY | END 2023-10-07 12:47 | disposition home or self-care (01) | LOC: HO.HAP 12:46 | DX: Z13.89 Encounter for screening for other disorder (principal) | CPT/HCPCS: 92591 ==

== ENCOUNTER 2023-10-15 11:23 | Outpatient (REF) | payer MEDICAID, SELFPAY | END 2023-10-15 11:24 | disposition home or self-care (01) | LOC: HO.HAP 11:23 | PROVIDERS: Visit Provider Internal Medicine | DX: Z46.1 Encounter for fitting and adjustment of hearing aid (principal); H90.3 Sensorineural hearing loss, bilateral | CPT/HCPCS: 92593; 99499; V5264 ==

== ENCOUNTER 2023-10-31 10:00 | Outpatient (REF) | payer MEDICAID, SELFPAY | END 2023-10-31 10:01 | disposition home or self-care (01) | LOC: HO.LNP 10:00 | PROVIDERS: Visit Provider Internal Medicine | DX: Z34.90 Encounter for supervision of normal pregnancy, unspecified, unspecified trimester (principal) | CPT/HCPCS: 84702 ==

== ENCOUNTER 2023-12-18 13:08 | Outpatient (REF) | payer MEDICAID, SELFPAY | END 2023-12-18 13:09 | disposition home or self-care (01) | LOC: HO.SH 13:08 | PROVIDERS: Visit Provider Internal Medicine | DX: Z13.89 Encounter for screening for other disorder (principal) ==

== ENCOUNTER 2024-02-15 20:36 | Emergency (ER) | payer MEDICAID, SELFPAY ==
[2024-02-15 20:38] VITALS: BP 121/70; PULSE 92; RESP 18; TEMP 36.6; O2SAT 99; BMI 45.4
--- NOTE | 2024-02-15 20:43 | ED_ITS ---
HPI - General Adult General Chief complaint: Urogenital-Female Stated complaint: ?uti Time Seen by Provider: 02/15/24 22:16 History of Present Illness ED Provider: Kim CARROLL narrative: The patient is a 33-year-old female who is approximately 6 months . She gets her OB care through a [facility] spanish literature professor office. This is the patient's 3rd . She has a 10-year-old child. Her 2nd ended in termination. Her 1st did not have any complications. The patient says that over the last 5 or 6 days she has had a sense of pressure in her lower abdomen and vagina that has been concerning her. She also feels that she has a small amount of whitish discharge from her vagina. She was worried that these symptoms might represent a UTI or a bacterial vaginosis or some other problem. She says her symptoms are really quite mild but she thought she ought to come and get checked. Last intercourse was with her usual monogamous sexual partner about 2 or 3 weeks ago. No fever, sweats, chills. She denies any actual dysuria, urgency, or frequency. No flank pain. No nausea or vomiting. She feels the baby moving a lot. Related Data Home Medications ?Medication ?Instructions ?Recorded ?Confirmed cetirizine 10 mg capsule (All Day 10 mg PO DAILY PRN 09/27/20 09/27/20 Allergy (cetirizine)) fluticasone furoate 200 1 inh inhalation DAILY 09/27/20 09/27/20 mcg-vilanterol 25 mcg/dose inhalation powder (Breo Ellipta) fluticasone propionate 50 1 spray intranasal BID 09/27/20 09/27/20 mcg/actuation nasal spray,suspension (Flonase Allergy Relief) albuterol sulfate 90 mcg/actuation 2 puff inhalation Q4-6H PRN 01/04/22 aerosol inhaler (ProAir HFA) oyrsvoi-aockgbtymydqe-yotqdphe 250 tab PO 01/04/22 mg-250 mg-65 mg tablet (Pain Reliever Plus) cholecalciferol (vitamin D3) 50 50 mcg PO DAILY 01/04/22 mcg (2,000 unit) capsule (Vitamin D3) ipratropium bromide 42 mcg (0.06 2 spray intranasal BID 01/04/22 %) nasal spray methyl salicylate 15 %-menthol 10 appl topical 01/04/22 % topical cream (Muscle Rub) montelukast 10 mg tablet 10 mg PO DAILY 01/04/22 meclizine 25 mg tablet 25 mg PO TID PRN 02/05/22 Previous Rx's ?Medication ?Instructions ?Recorded tizanidine 4 mg tablet 4 mg PO BID PRN muscle spasticity 01/04/22 30 days #60 tabs Donut pillow #1 ea 02/05/22 celecoxib 200 mg capsule (Celebrex) 200 mg PO BID PRN pain 30 days #60 02/05/22 caps ondansetron 4 mg disintegrating 4 mg PO Q6-8H PRN nausea and 07/09/22 tablet vomiting #7 tabs miconazole nitrate 4 % (200 mg)-2 See Rx Instructions vaginal 09/13/23 % (9 gram)vaginal,prefill .COMPLEX #24 grams appl,cream Allergies Allergy/AdvReac Type Severity Reaction Status Date / Time amoxicillin [From AUGMENTIN] Allergy Unknown HIVES Verified 02/15/24 20:46 clavulanic acid Allergy Unknown HIVES Verified 02/15/24 20:46 [From AUGMENTIN] augmentin Allergy Unknown Difficulty Uncoded 02/15/24 20:46 Breathing Review of Systems 2 Review of Systems: Yes all other systems are reviewed and are negative PMFSH Past Medical History Medical History Asthma Back pain Morbid obesity PCOS (polycystic ovarian syndrome) Surgical History History of section, low transverse Family History Family History Mother Brain tumor Father No problems noted. Sister No problems noted. Son Asthma Social History Social History Alcohol intake: never Patient Tobacco Use Status: Never used Tobacco Advance Directives: No Advance Directives Information Provided: No Physical Exam ED Vital Signs: Vital Signs - 24 hr 02/15/24 20:38 02/15/24 21:54 Temperature 97.9 F 98.6 F Pulse Rate 92 85 Respiratory Rate 18 14 Blood Pressure 121/70 97/40 L Pulse Oximetry 99 99 Oxygen Delivery Method Room Air Room Air BMI result Body Mass Index 45.4 Const Other: The patient is awake, alert, pleasant, cooperative. She does not appear in distress. HENMT Other: Face is symmetrical. Mucous membranes moist. Eyes Other: Pupils are round equal, conjunctivae are clear, extraocular movements intact Neck Other: Neck is supple Resp Effort & Inspection: normal respiratory effort Auscultation: clear to auscultation bilaterally Cardio Rate: regular rate Rhythm: regular rhythm Heart sounds: S1 normal heart sound present and S2 normal heart sound present GI Other: The patient has a gravid abdomen. The uterine fundus is above the umbilicus. There is no tenderness. Skin Other: Skin is dry and unremarkable Neuro Other: The patient is awake and alert with a normal mental status. Cranial nerves are grossly intact. She moves her extremities normally. She seems grossly neurologically intact. Extrem Other: No peripheral edema Course Course Course Narrative: This is a Rapid Medical Examination (RME) performed by Deepa Cr PA-C in triage. Full HPI, ROS, assessment and treatment plan per primary provider in the Main ED. 33 yo female A1, currently 6 mo here for eval of bladder pressure, dark urine, and white/green vaginal discharge. no complications with this . follows w/ [facility] OB. denies fever, chills, vaginal bleeding, abd pain. Plan: basic labs, UA, CT/NG Medical Decision Making Medical Decision Making MDM Narrative: The patient is a 33-year-old female who reports that she is 6 months . She receives her OB care through a spanish literature professor practice at [facility]. She describes some very nonspecific symptoms of a sense of pressure in her pelvis and possibly some mild vaginal discharge. She was concerned she might have a UTI but she really does not describe definite urinary symptoms. Her urinalysis today is only minimally abnormal. This has reflexed to a culture. Given the mildness of her symptoms and the equivocal nature of her urinalysis today I do not think empiric antibiotics are indicated. The urine sample has reflex to a culture and I feel it would be reasonable to await urine culture results in this case. There were no bacteria seen on microscopy. The patient also does not really describe significant symptoms of a vaginitis and I think any additional testing can be deferred to her OB providers. She will therefore be discharged. Lab Data 02/15/24 20:58 02/15/24 20:58 Labs: Lab Results 02/15/24 02/15/24 Range/Units 20:58 20:59 WBC 8.2 (4.8-10.8) X10*3/uL RBC 3.69 L (4.20-5.50) X10*6/uL Hgb 11.8 L (12.0-16.0) g/dl Hct 34.4 L (37.0-47.0) % MCV 93.2 (80.0-98.0) fL MCH 32.0 (27.0-33.0) pg MCHC 34.3 (31.0-35.0) g/dl RDW 12.4 (11.0-16.0) % Plt Count 233 (160-400) X10*3/uL MPV 9.8 (9.4-12.3) fL Immature Gran % (Auto) 0.5 H (0.0-0.4) % Neut % (Auto) 67.6 (45-73) % Lymph % (Auto) 19.8 L (20-40) % [place] % (Auto) 9.8 (2-11) % Eos % (Auto) 1.6 (0-4) % Baso % (Auto) 0.7 (0-2) % Lymph # (Auto) 1.6 (1.2-4.9) X10*3/uL [place] # (Auto) 0.8 (0.1-1.2) X10*3/uL Eos # (Auto) 0.1 (0.0-0.4) X10*3/uL Baso # (Auto) 0.1 (0.0-0.2) X10*3/uL Abs Immat Gran (auto) 0.04 H (0.00-0.03) X10*3/uL Absolute Neuts (auto) 5.5 (2.0-8.3) x10*3/uL Absolute Nucleated RBC 0.000 (0.0-0.012) X10*3/uL Nucleated RBC % (auto) 0.0 (0.0-0.2) /100WBC Sodium 138 (135-145) mmol/L Potassium 3.7 (3.3-5.1) mmol/L Chloride 105 (96-108) mmol/L Carbon Dioxide 26 (22-29) mmol/L Anion Gap 11 L (12-20) BUN 6 L (9-16) mg/dL Creatinine 0.64 (0.5-1.4) mg/dL Estim Creat Clear Calc 122.0 Estimated GFR > 60 Random Glucose 80 (60-115) mg/dL Calcium 9.2 (8.4-10.2) mg/dL Total Bilirubin 0.4 (0.0-1.0) mg/dL AST 84 H (5-31) U/L ALT 74 H (0-31) U/L Alkaline Phosphatase 94 (39-117) U/L Total Protein 6.7 (6.5-8.0) g/dL Albumin 3.4 L (3.5-5.0) g/dL Beta HCG, Quant 06542 mIU/mL Urine Color Yellow Urine Appearance Clear Urine pH 7.0 (5.0-9.0) Ur Specific [place] 1.015 (1.005-1.025) Urine Protein Negative (Neg-Trace) mg/dL Urine Glucose (UA) Negative (Negative) mg/dL Urine Ketones Negative (Negative) mg/dL Urine Blood Negative (Negative) Urine Nitrite Negative (Negative) Ur Leukocyte Esterase Small (1+) H (Negative) Urine RBC 0-2 (0-2) /HPF Urine WBC 0-5 (0-5) /HPF Ur Squamous Epith Cells 3-5 (0-2) /HPF Urine Bacteria None Seen (None Seen) Hyaline Casts 0-2 (0-2) /LPF Discharge Plan Discharge Clinical Impression: Feeling pelvic pressure during , antepartum Patient Disposition: Home, Self-Care Additional Instructions: The urine sample you submitted today does not show obvious signs of the presence of an infection. However a culture has been set up for a more definitive test. You will be contacted if the urine culture is positive. Otherwise I think your symptoms seem quite mild and I do not think he require further testing today. Your labs are reassuring as are your vital signs. Please plan on keeping your appointment on Saturday with the bi analyst. Please contact your midwives at any time if you have any sense of worsening symptoms. Return to the emergency room if significantly worse. Prescriptions: No Action ondansetron 4 mg tablet,disintegrating 4 mg PO Q6-8H PRN (Reason: nausea and vomiting) Qty: 7 0RF miconazole nitrate 4 % (200 mg)- 2 % (9 gram) comb pack,prefill appl, cream See Rx Instructions .ROUTE .COMPLEX Qty: 24 0RF Rx Instructions: put 1 supp in vagina at bedtime x 3nites;use cream on area outside vagina 2X/day for up to 7days fluticasone propionate [Flonase Allergy Relief] 50 mcg/actuation spray,suspension 1 spray intranasal BID Rx Instructions: administer into each nostril All Day Allergy (cetirizine) 10 mg capsule 10 mg PO DAILY PRN Breo Ellipta 200-25 mcg/dose blister with device 1 inh inhalation DAILY cholecalciferol (vitamin D3) [Vitamin D3] 50 mcg (2,000 unit) capsule 50 mcg PO DAILY Muscle Rub 15-10 % cream topical Pain Reliever Plus 250-250-65 mg tablet PO ipratropium bromide 42 mcg (0.06 %) spray,non-aerosol 2 spray intranasal BID montelukast 10 mg tablet 10 mg PO DAILY albuterol sulfate [ProAir HFA] 90 mcg/actuation HFA aerosol inhaler 2 puff inhalation Q4-6H PRN tizanidine 4 mg tablet 4 mg PO BID PRN (Reason: muscle spasticity) 30 Days Qty: 60 1RF meclizine 25 mg tablet 25 mg PO TID PRN (DME) Wong Berger See Rx Instructions .Route Qty: 1 0RF Rx Instructions: As directed celecoxib [Celebrex] 200 mg capsule 200 mg PO BID PRN (Reason: pain) 30 Days Qty: 60 0RF Rx Instructions: Take it with food, avoid other NSAIDs while taking this. Print Language: Estonian
[2024-02-15 21:05] LABS: MANUAL DIFF FLAG NO
[2024-02-15 21:07] LABS: Basophils Absolute Auto 0.1 X10*3/uL (0.0-0.2); Basophils Percent Auto 0.7 % (0-2); Eosinophils Absolute Auto 0.1 X10*3/uL (0.0-0.4); Eosinophils Percent Auto 1.6 % (0-4); Hematocrit 34.4 % (37.0-47.0); Hemoglobin 11.8 g/dl (12.0-16.0); Imm Gran Abs Auto 0.04 X10*3/uL (0.00-0.03); Imm Gran Pct Auto 0.5 % (0.0-0.4); Lymphocytes Absolute Auto 1.6 X10*3/uL (1.2-4.9); Lymphocytes Percent Auto 19.8 % (20-40); Mean Corpuscular HGB Conc 34.3 g/dl (31.0-35.0); Mean Corpuscular Volume 93.2 fL (80.0-98.0); Mean Platelet Volume 9.8 fL (9.4-12.3); Monocytes Absolute Auto 0.8 X10*3/uL (0.1-1.2); Monocytes Percent Auto 9.8 % (2-11); Neutrophils Absolute Auto 5.5 x10*3/uL (2.0-8.3); Neutrophils Percent Auto 67.6 % (45-73); Platelet Count 233 X10*3/uL (160-400); Red Blood Count 3.69 X10*6/uL (4.20-5.50); Red Cell Distribution Width 12.4 % (11.0-16.0); White Blood Count 8.2 X10*3/uL (4.8-10.8)
[2024-02-15 21:09] LABS: Appearance Urine Clear; Color Urine Yellow; Glucose Urine UA Negative (Negative); Leukocyte Esterase Urine Small (1+) (Negative); Nitrite Urine Negative (Negative); Specific Gravity - Urine 1.015 (1.005-1.025); UMIC TRIGGER UACC YES; Urine Blood Negative (Negative); Urine Ketones Negative (Negative); Urine Protein Negative (Neg-Trace)
[2024-02-15 21:24] LABS: Bacteria Urine None Seen (None Seen); Hyaline Casts Urine 0-2 /LPF (0-2); RBC Urine 0-2 /HPF (0-2); UACC Culture Trigger YES; WBC Urine 0-5 /HPF (0-5)
[2024-02-15 21:30] LABS: Alanine Aminotransferase 74 U/L (0-31); Albumin Level 3.4 g/dL (3.5-5.0); Alkaline Phosphatase 94 U/L (39-117); Anion Gap 11 (12-20); Aspartate Amino Transferase 84 U/L (5-31); Bilirubin Total 0.4 mg/dL (0.0-1.0); Blood Urea Nitrogen 6 mg/dL (9-16); Calcium 9.2 mg/dL (8.4-10.2); Carbon Dioxide 26 mmol/L (22-29); Chloride 105 mmol/L (96-108); Estimated Glomerular Filt Rate > 60; Glucose Random 80 mg/dL (60-115); HCG Quantitative 11090 mIU/mL; Potassium 3.7 mmol/L (3.3-5.1); Sodium 138 mmol/L (135-145); Total Protein 6.7 g/dL (6.5-8.0)
[2024-02-15 21:54] VITALS: BP 97/40; PULSE 85; RESP 14; TEMP 37; O2SAT 99
[2024-02-15 23:03] VITALS: BP 97/40; PULSE 85; RESP 14; TEMP 37; O2SAT 99
[2024-02-16 09:04] LABS: CT PCR NOT DETECTED (Not Detect.); NG PCR NOT DETECTED (Not Detect.)
== END 2024-02-15 23:03 | disposition home or self-care (01) ==
PROVIDERS: Physician Assistant Medical; Emergency Provider Emergency Medicine; PCP Internal Medicine
DX: O26.892 Other specified pregnancy related conditions, second trimester (principal); R10.2 Pelvic and perineal pain; Z3A.00 Weeks of gestation of pregnancy not specified
CPT/HCPCS: 36415; 80053; 81001; 84702; 85025; 87086; 87491; 87591; 99283; 99284

== ENCOUNTER 2024-03-12 15:37 | Outpatient (REF) | payer MEDICAID, SELFPAY ==
--- NOTE | 2024-03-13 08:21 | MHC.AU.HA3 ---
Hearing Instrument Follow-Up- Binaural Date of Visit: 03/12/24 Right Ear: Make, Model, Color, Serial Number: Tono Sheldon [id number] SN: [id number] Color: [place] Threat Analyst Repair Warranty: 11/26/2024 Threat Analyst Loss and Damage Warranty: 11/26/2024 [facility] Service Plan: 09/07/2022 Battery Size: 13 Bottling Room Worker/Slim Tube: 1 M Earmold/Dome/CShell/SlimTip:cShell SN: [id number] Warranty: 02/26/2022 Type of Wax Guard: CeruShield Dispensed By: [facility] Date of Fittin09/07/2021 Left Ear: Make, Model, Color, Serial Number: Tono Sheldon [id number] SN: [id number] Color: [place] Threat Analyst Repair Warranty: 11/26/2024 Threat Analyst Loss and Damage Warranty: 11/26/2024 [facility] Service Plan: 09/07/2022 Battery Size: 13 Bottling Room Worker/Slim Tube: 1 M [place]old/Dome/CShell/SlimTip: cShell SN: [id number] Warranty: 02/26/2022 Type of Wax Guard: CeruShield Dispensed By: [facility] Date of Fittin09/07/2021 Follow-Up Summary: Reports right aid was intermittent recently- cut in and out for streaming and in general. Cleaned and checked aids. Cleaned earmolds. Found small amount of wax in wax guards. Replaced wax guards. Ran through dehumidifier. Listening check positive. Could not recreate intermittency in office. Advised we should send for repair if it recurs. Recommendations: Recommendations: Hearing instrument follow-up or maintenance as needed. Diagnosis Code(s): Primary Diagnosis: H90.3 Bilateral Sensorineural Hearing Loss Secondary Diagnosis: R42 Dizziness and Giddiness Signature: Provider: Dwaine Mcintosh, [facility]
== END 2024-03-12 15:38 | disposition home or self-care (01) ==
LOC: HO.HAP 15:37
PROVIDERS: Visit Provider Internal Medicine
DX: Z46.1 Encounter for fitting and adjustment of hearing aid (principal); H90.3 Sensorineural hearing loss, bilateral
CPT/HCPCS: 92593; 99499

== ENCOUNTER 2024-03-30 13:57 | Outpatient (REF) | payer MEDICAID, SELFPAY | END 2024-03-30 13:58 | disposition home or self-care (01) | LOC: HO.HAP 13:57 | PROVIDERS: Visit Provider Internal Medicine | DX: Z46.1 Encounter for fitting and adjustment of hearing aid (principal); H90.3 Sensorineural hearing loss, bilateral; R42 Dizziness and giddiness | CPT/HCPCS: V5266 ==

== ENCOUNTER 2024-08-14 12:07 | Outpatient (REF) | payer MEDICAID, SELFPAY ==
--- OUTSIDE RECORDS SUMMARY | 2024-08-14 12:56 | XMS_ITS | Encounter Summary ---
Author Organization [facility] Address [address] [place] [address] Care Team Providers Care Brokerage Branch Manager Name Role Phone Kimberly Grant DO Primary Care Pro vider Unavailable Shahla Calvert MD Primary Care Provide r Unavailable Encounter Details Date Type Department Care Team Description 07/14/2015 Release of Information Medical Records [address] [place] [id number] Abstract, Provider Social History Tobacco Use Types Packs/Day Years Used Date Smoking Tobacco: Never Smokeless Tobacco: Never Alcohol Use Standard Drinks/Week Comments No 0 (1 standard drink = 0.6 oz pur e alcohol) Sex Assigned at Date Recorded Female 09/11/2021 8:06 AM E DT documented as of this encounter Plan of Treatment Not on file documented as of this encounter Visit Diagnoses Not on filedocumented in this encounter Care Teams Brokerage Branch Manager Relationship Specialty Start Date End Date Kimberly Grant DO PCP - General Internal Medicine 07/12/15 03/28/20 Shahla Calvert MD PCP - General Internal Medicine 03/29/20 documented as of this encounter
--- OUTSIDE RECORDS SUMMARY | 2024-08-14 12:57 | XMS_ITS | Encounter Summary ---
Author Organization [employer] Address [address] [facility] 7[address] [place] [address] Care Team Providers Care Boat Captain Name Role Phone Shahla Person MD Primary Care Provide r Encounter Details Date Type Department Care Team ([facility] st Contact Info) Description 08/12/2024 Orders Only [facility] [address] [place] [address] Randa Meredith Social History Tobacco Use Types Packs/Day Years Used Date Smoking Tobacco: Never Passive Smoke Exposure: Never Smokeless Tobacco: Never Alcohol Use Standard Drinks/Week Comments Never 0 (1 standard drink = 0.6 oz pur e alcohol) Depression Answer Date Recorded Patient Health Questionnaire-9 Score 0 08/13/2024 Patient Health Questionnaire-9 Score 0 08/13/2024 Last PHQ-9: Questionnaire Data Not on file 0 08/13/2024 Housing Stability Answer Date Recorded What is your housing situation today? I have benito burciaga 07/30/[address] you li ve. Do you have problems with any of the following? None of the above 07/30/2023 Food Insecurity Answer Date Recorded Within the past 12 months, y ou worried that your food would run out before you got money to buy more: Never True 07/30/2023 Within the past 12 months,th e food you bought just didn't last and you didn't have enough money to get more: Never True 12/2023 Transportation Answer Date Recorded In the past 12 months, has l ack of transportation kept you from medical appts, meetings, work or from getting things needed for daily living? No 07/30/2023 Utilities Answer Date Recorded In the past 12 months, has t he electric, gas, oil or water company threatened to shut off services in your home? No 08/08/2023 Depression Answer Date Recorded Patient Health Questionnaire-2 Score 0 08/13/2024 Internet Access Answer Date Recorded Internet Access Q1 Yes 08/04/2024 Internet Access Q2 Not on file 08/04/2024 Comments Unknown Sex and Gender Information Value Date Recorded Sex Assigned at Female 02/19/2022 10:31 AM EDT Legal Sex Female 10:31 AM EDT Gender Identity Female 02/19/2022 10:31 AM EDT Sexual Orientation Straight 02/19/2022 10 :31 AM EDT documented as of this encounter Plan of Treatment Upcoming Encounters Date Type Department Care Team (Late st Contact Info) Description 08/24/2024 10:00 AM EDT Office Visit [facility] [address] [place], [place] [id number] Luis, Elizabeth, OD [address] [place] [address] documented as of this encounter Procedures Procedure Name Priority Date/Time Associated Diagnosis Comments HM PAP/HPV Routine 07/22/2024 12:00 AM EDT documented in this encounter Results * HM PAP/HPV (07/22/2024 12:00 AM EDT) Pap Smear 1. NILM 1. NILM [facility] HPV Not Detected Undetected, Indeterminat e, Quantitative , Not Detected [facility] us Historical Provider HEALTH MAINTENANCE Edited Result - Final [facility] [address] [place] [address], documented in this encounter Visit Diagnoses Not on filedocumented in this encounter Additional Health Concerns Assessment Noted Time PHQ-9 Depression Total Score: 0 05/02/19 24 1:31 PM EST documented as of this encounter Care Teams Boat Captain Relationship Specialty Start Date End Date Shahla Person MD [address] [place], [place] [phone] PCP - General Family Medicine 12/12/18 documented as of this encounter
--- OUTSIDE RECORDS SUMMARY | 2024-08-14 12:57 | XMS_ITS | Clinical Summary ---
Author Organization [employer] Address [address] [facility] 7t [place] [address] Care Team Providers Care Cabinet Mounter Name Role Phone Shahla Person MD Primary Care Provide r Allergies Active Allergy Reactions Criticality Noted Date Comments Amoxicillin 09/05/2016 Amoxicillin-Pot Clavulanate Anaphylaxis,Hives High 0 07/12/2015 Clavulanic Acid 09/05/2016 Medications aspirin-acetaminop hen-caffeine (Excedrin Migraine) 250-250-65 MG tablet one pill 2 times a day as needed for headache 2 Active cholecalciferol (Vitamin D-3) 50 MCG (2000 UT) capsule Take 1 capsule by mouth at bed time. 2 Active montelukast (Singulair) 10 MG tablet Take 1 tablet by mouth at bed time. 2 Active celecoxib (CeleBREX) 200 MG capsule TAKE 1 CAPSULE BY MOUTH TWICE DAILY WITH FOOD NEEDED FOR PAIN. AVOID OTHER NSAIDs. 2 Active cyclobenzaprine (Flexeril) 10 MG tablet Take 10 mg by mouth if needed in the morning and at bedtime. 2 Active docusate sodium (Colace) 100 MG capsule Take 1 capsule by mouth every 12 (twelve) hours. 1 Active ergocalciferol (Vitamin D2) 1.25 MG (30677 UT) capsule Take 1 capsule by mouth 1 (one) time per week. 1 Active ipratropium (Atrovent) 0.06 % nasal spray USE 2 SPRAYS IN EACH NOSTRIL UP TO FOUR TIMES DAILY 2 Active ketotifen (Zaditor) 0.025 % ophthalmic solution PLACE 1 TO 2 DROPS INTO THE AFFECTED EYE(S) UP TO TWICE DAILY 2 Active SUMAtriptan (Imitrex) 50 MG tablet take 1 tablet by mouth after onset of migraine; may repeat after 2 hours if headache returns,not to exceed 200mg in 24hrs 1 Active tiZANidine (Zanaflex) 4 MG tablet Take 4 mg by mouth if needed in the morning and at bedtime. 2 Active clotrimazole (Lotrimin) 1 % vaginal creamIndications:V ulvovaginal Candidiasis Insert one applicator per vagina at bedtime for 7 nights 45 g 3 Active triamcinolone (Kenalog) 0.1 % creamIndications:A llergic reaction, initial encounter APPLY TO THE AFFECTED AREA(S) TOPICALLY TWICE DAILY IN THE MORNING AND AT BEDTIME NEEDED FOR PAIN AND FOR SWELLING FOR UP TO 10DAYS 45 g 1 3 Active cetirizine (ZyrTEC) 10 MG tabletIndications: Congestion of nasal sinus Take 1 tablet (10 mg) by mouth in the morning. 30 tablet 1 3 Active albuterol (2.5 MG/3ML) 0.083% nebulizer solution USE 1 AMPULE USING A NEBULIZER THREE TIMES DAILY 90 mL 3 Active Mometasone Furoate (Asmanex HFA) 100 MCG/ACT aerosolIndications :Moderate persistent asthma without complication Inhale 1 puff 2 times daily. 13 g 2 4 Active cetirizine (ZyrTEC) 10 MG tabletIndications: Congestion of nasal sinus Take 1 tablet (10 mg) by mouth in the morning. 30 tablet 2 4 Active meclizine (Antivert) 25 MG tablet TAKE 1 TABLET BY MOUTH THREE TIMES DAILY NEEDED FOR DIZZINESS 30 tablet 4 Active metFORMIN (Glucophage) 500 MG tabletIndications: PCOS (polycystic ovarian syndrome) Take 1 tablet (500 mg) by mouth with breakfast and with evening meal. 60 tablet 11 4 Active ondansetron ODT (Zofran-ODT) 4 MG disintegrating tabletIndications: Vertigo DISSOLVE 1 TABLET ON TONGUE EVERY 6 TO 8 HOURS NEEDED FOR NAUSEA AND VOMITING. 20 tablet 04/18/202 4 Active albuterol (Ventolin HFA) 108 (90 Base) MCG/ACT inhalerIndications :Moderate persistent asthma without complication INHALE 2 PUFFS BY MOUTH EVERY 4 TO 6 HOURS NEEDED 18 g 2 4 Active fexofenadine (Selena) 180 MG tabletIndications: Seasonal allergies Take 1 tablet (180 mg) by mouth if needed each day (Allergies). 90 tablet 4 Active acetaminophen (Tylenol) 160 MG/5ML elixir Take 20.3 mL (650 mg) by mouth every 6 (six) hours if needed for headaches. 120 mL 4 Active fluticasone (Flonase) 50 MCG/ACT nasal sprayIndications:C ongestion of nasal sinus Administer 2 sprays into each nostril Once per day. 16 g 1 4 Active Active Problems Problem Noted Date Diagnosed Date Seasonal allergies 12/09/2023 22 weeks gestation of 12/09/2023 Assessment & Plan (12/09/2023 4:18 PM EDT): Continue to follow with OBGYN Positive blood test 08/29/2023 Positive urine test 08/26/2023 Encounter for preventive care 08/08/2023 Assessment & Plan (08/13/2024 4:28 PM EDT): See HPI Assessment & Plan (08/08/2023 4:20 PM EDT): See HPI Vertigo 08/08/2023 Congestion of nasal sinus 01/30/2023 Assessment & Plan (01/30/2023 11:57 AM EDT): Drink plenty of fluids and rest Medications for allergies and asthma will be refill If she continues to feel sick I advise to go to [facility] Obesity (BMI 35.0-39.9 without comorbidity) 08/20 Assessment & Plan (05/02/2023 2:05 PM EST): Today extensive discussion was done about life style modifications I advise healthy diet (low calorie) and cardiovascular exercise May c/w ozempic Assessment & Plan (12/31/2022 3:50 PM EDT): continue with ozempic, I quitline counselor patient information about medication will be mail to patient I instructed patient she will now need a higher dose, I explain I send it to the pharmacy RTC 4 weeks Assessment & Plan (10/25/2022 11:53 AM EDT): Counseling done I explain to patient semaglutide side effects, I also explain to her insurance is not covering this medication to be use for weight lose I put prescription in for 2 months then RTC to monitor weight lose Assessment & Plan (09/06/2022 10:05 AM EDT): Patient congratulated and encourage to continue with life style modifications I will start her first on phentiramine 37.5mg daily Vaginal candidiasis 09/04/2022 Assessment & Plan (09/04/2022 3:27 PM EDT): -Wet prep with RUFINA significant for budding yeast. No clue, no trich. -Candidiasis prevention discussed. -Rx fluconazole 150mg once and clotrimazole cream Family planning 09/04/2022 Assessment & Plan (09/04/2022 3:25 PM EDT): Restarting BC. She was given refills of sean. Muscle strain of gluteal region, right, initial encounter 07/30/2022 L4-L5 disc bulge 03/19/2022 Lumbar back pain 03/19/2022 Assessment & Plan (07/30/2022 9:32 AM EDT): Ok to take NSAIDs, normal renal function Will check CK due to muscle supplements and weight lifting Referral to PT Muscle relaxer sparingly Will followup after results of liver enzymes and CK testing today Moderate persistent asthma 03/19/2022 Assessment & Plan (08/13/2024 4:29 PM EDT): Stable c/w same interventions Assessment & Plan (12/09/2023 4:17 PM EDT): Patient educated to avoid triggers May c/w albuterol PRN if needed Assessment & Plan (08/08/2023 4:19 PM EDT): Controlled c/w same interventions Assessment & Plan (05/02/2023 2:04 PM EST): Patient educated to brissa asthma triggers Albuterol inhaler Q 4-6hrs PRN Asmanex BID Assessment & Plan (09/06/2022 10:05 AM EDT): Stable continue with same interventions Neck pain 03/19/2022 Severe obesity 03/19/2022 Acne vulgaris 11/08/2017 Hirsutism 11/08/2017 Lower abdominal pain 10/25/2017 PCOS (polycystic ovarian syndrome) 09/20/2016 Assessment & Plan (08/08/2023 4:20 PM EDT): I will refer her to gynecology and start her on metformin Hearing loss 08/22/2016 Mild persistent asthma 06/26/2016 Anxiety 04/25/2016 Assessment & Plan (09/06/2022 10:05 AM EDT): Improve continue with same interventions Asthma in adult 07/12/2015 Encounters Date Type Department Care Team Description 08/13/2024 2:45 PM EDT Office Visit [address] [address] Shahla Person MD Encounter for preventive care (Primary Dx); Moderate persistent asthma without complication; Dietary counseling; Exercise counseling; Class 3 severe obesity due to excess calories with serious comorbidity and body mass index (BMI) of 40.0 to 44.9 in adult 08/12/[address] [address] Shahla Person MD Chart Prep 08/12/2024 Orders Only [facility] [address] [place] [address] Randa Meredith 08/04/2024 Patient Outreach [facility] [address] [place] [address] [place] [address] Shahla Person MD Pre-visit Planning (SDOH screening negative and tobacco screening negative) 07/03/2024 Population Health Risk Score [facility] ([facility] Department [address] [place] [phone] Provider, Population Health Generic 05/20/2024 Telephone [facility] [address] [place] [address] Modesta Fernandez RN from Last 3 Months Immunizations Name Administration Dates Next Due Influenza Injectable Quadriv alant Preservative Free IIV4 MDCK 01/04/2022,01/05/2021,01/06/2020 Influenza injectable quadriv alent IIV4 with preservative 12/31/2018,01/01/2018,03/20/2016 Influenza, IIV3, injectable 03/20/2016 Meningococcal MCV4P ACYW-135 03/21/2018 Moderna Covid-19 Vaccine 12+ 11/30/2021,06/02/19 21,05/05/2020 PPD Test 07/12/2015 Pfizer Covid-19 Vaccine 12+ 08/08/2023 Pneumococcal Conjugate PCV 20 08/08/2023 Tdap 10/12/2016 Social History Tobacco Use Types Packs/Day Years Used Date Smoking Tobacco: Never Passive Smoke Exposure: Never Smokeless Tobacco: Never Tobacco Cessation:Counseling Given: Not Answered Alcohol Use Standard Drinks/Week Comments Never 0 [...] Access Q2 Not on file 08/04/2024 Comments No Sex and Gender Information Value Date Recorded Sex Assigned at Female 02/19/2022 10:31 AM EDT Legal Sex Female 10:31 AM EDT Gender Identity Female 02/19/2022 10:31 AM EDT Sexual Orientation Straight 02/19/2022 10 :31 AM EDT Last Filed Vital Signs Vital Sign Reading Time Taken Comments Blood Pressure 128/70 08/13/2024 2:59 PM EDT Pulse 100 08/13/2024 2:59 PM EDT Temperature 36.7 ??C (98.1 ??F) 08/13/2024 2:59 PM ED T Respiratory Rate 21 08/13/2024 2:59 PM EDT Oxygen Saturation 99% 08/13/2024 2:59 PM EDT Inhaled Oxygen Concentration - - Weight 92.6 kg (204 lb 4 oz) 08/13/2024 2:59 PM EDT Height 144.8 cm (4' 9 ) 08/13/2024 2:59 PM EDT Body Mass Index 44.2 08/13/2024 2:59 PM EDT Plan of Treatment Upcoming Encounters Date Type Department Care Team (Late st Contact Info) Description 08/24/2024 10:00 AM EDT Office Visit [facility] [address] [place] [address] Elizabeth Smith, OD [address] [place] [address] Health Maintenance Due Date Last Done Comments Family Planning (PISQ) 2006 Hepatitis B Vaccines (1 of 3 - 19+ 3-dose series) 2010 COVID-19 Vaccine ( season) 2023 08/08/2023, 11/30/2021, 06/02/2020, Additional history exists SDOH Screening 08/04/2025 08/04/2024 Alcohol/Substance Use Screening 08/13/2025 08/13/2024 Depression Screening 08/13/2025 08/13/2024, 08/14/19 Tobacco Screening 08/13/2025 08/13/2024 Lipid Panel 10/02/2027 10/01/2022, 05/2021, 04/04/2021 Cervical Cancer Screening 07/22/2029 HPV/Cotest 07/22/2029 07/22/2024, 07/16/2022 Pap Smear 07/22/2029 07/22/2024, 06/21, 03/21/2020 DTaP/Tdap/Td Vaccines (3 - Td or Tdap) 02/11/2034 02/12/2024, 10/12/2016 Zoster Vaccines (1 of 2) 2041 RSV Patients and Patients Aged 60 years or older (1 - 1-dose 75+ series) 2066 Meningococcal Vaccine Aged Out 03/21/2018 No lalita carlyn eligible based on patient's age to complete this topic HIV Screening Completed 10/01/2022, 07/2022, 04/12/2021, Additional history exists Hepatitis C Screening Completed 10/01/2022 , 07/17/2022, 04/25/2022, Additional history exists Pneumococcal Vaccine: Pediatrics (0 to 5 Years) and At-Risk Patients (6 to 49) Years) Completed 08/08/2023 Influenza Vaccine Completed 02/12/2024, , 01/05/2021, Additional history exists HIB Vaccines Aged Out No longer eligi ble based on patient's age to complete this topic HPV Vaccines Aged Out No longer eligi ble based on patient's age to complete this topic Hepatitis A Vaccines Aged Out No long er eligible based on patient's age to complete this topic IPV Vaccines Aged Out No longer eligi ble based on patient's age to complete this topic RSV under 20 months Aged Out No longe r eligible based on patient's age to complete this topic Rotavirus Vaccines Aged Out No longer eligible based on patient's age to complete this topic Procedures Procedure Name Priority Date/Time Associated Diagnosis Comments HM PAP/HPV Routine 07/22/2024 12:00 AM EDT HEPATITIS C AB W/REFL TO HCV RNA, QN, PCR Routine 10/01/2022 9:17 AM EDT Routine screening for STI (sexually transmitted infection) HIV 1/2 ANTIGEN/ANTIBODY, FOURTH GENERATION W/RFL Routine 10/01/2022 9:17 AM EDT Routine screening for STI (sexually transmitted infection) LIPID PANEL, STANDARD Routine 10/01/2022 9:14 AM EDT Obesity (BMI 35.0-39.9 without comorbidity) from Last 3 Months or Most Recently Relevant to Health Maintenance Results * HM PAP/HPV (07/22/2024 12:00 AM EDT) Pap Smear 1. NILM 1. NILM [facility] HPV Not Detected Undetected, Indeterminat e, Quantitative , Not Detected [facility] us Historical Provider HEALTH MAINTENANCE Edited Result - Final [facility] [address] [place] [id number], * Hepatitis C Antibody with Reflex to HCV, RNA, Quantitative, Real-Time PCR (10/01/2022 9:17 AM EDT) Hepatitis C Antibody NON-REACT TAM NON-REACT TAM [employer] Index 0.06 <1.00 [employer] Comment: HCV antibody was non-reactive. There is no laboratory evidence of HCV infection. In most cases, no further action is required. However, if recent HCV exposure is suspected, a test for HCV RNA (test code 48958) is suggested. For additional information please refer to http://education.Virtru/faq/QEE18x7 (This link is being provided for informational/ educational purposes only.) Blood Venous blood specimen / Unknown 10/01/2022 9:17 AM EDT 10/01/2022 9:18 AM EDT Narrative [facility] - 10/02/2022 7:47 PM EDT FASTING:YES FASTING: YES Petra Razo MD LAB BLOOD ORDERABLES Final Result [facility] [address], [facility] [place] [address] [employer] [facility] [address] [place] [address] * HIV-1/2 Antigen and Antibodies, Fourth Generation, with Reflexes (10/01/2022 9:17 AM EDT) [facility] HIV Antigen/Antibody, 4th Generation NON-REAC TIVE NON-REAC TIVE [employer] [facility] Comment: HIV-1 antigen and HIV-1/HIV-2 antibodies were not detected. There is no laboratory evidence of HIV infection. PLEASE NOTE: This information has been disclosed to you from records whose confidentiality may be protected by state law. ??If your state requires such protection, then the state law prohibits you from making any further disclosure of the information without the specific written consent of the person to whom it pertains, or as otherwise permitted by law. A general authorization for the release of medical or other information is NOT sufficient for this purpose. ?? For additional information please refer to http://education.EnGeneIC.[employer]/faq/CWH547 (This link is being provided for informational/ educational purposes only.) The performance of this assay has not been clinically validated in patients less than 2 years old. Blood Venous blood specimen / Unknown 10/01/2022 9:17 AM EDT 10/01/2022 9:18 AM EDT Narrative [facility] - 10/02/2022 7:47 PM EDT FASTING:YES FASTING: YES Petra Razo MD LAB BLOOD ORDERABLES Final Result [facility] [address], [facility] [place] [address] [employer] [facility] [address] [place] [address] * (ABNORMAL) Lipid Panel, Standard (10/01/2022 9:14 AM EDT) Cholesterol, Total 130 <200 mg/dL [employer] [facility] HDL Cholesterol 48(L) > OR = 50 mg/dL [employer] [facility] Triglycerides 39 <150 mg/dL [employer] [facility] LDL Cholesterol 71 mg/dL (calc) [employer] [facility] Comment: Reference range: <100 Desirable range <100 mg/dL for primary prevention; ?? <70 mg/dL for patients with CHD or diabetic patients with > or = 2 CHD risk factors. LDL-C is now calculated using the Cory calculation, which is a validated novel method providing better accuracy than the Friedewald equation in the estimation of LDL-C. Eulogio SS et al. NIDHI. 2013;310(19): 3930-0032 (http://education.Inogen/faq/RRF418) Chol/HDLC Ratio 2.7 <5.0 (calc) [facility] [facility] Non-HDL Cholesterol 82 <130 mg/dL (calc) [facility] [facility] Comment: For patients with diabetes plus 1 major ASCVD risk factor, treating to a non-HDL-C goal of <100 mg/dL (LDL-C of <70 mg/dL) is considered a therapeutic option. Blood Venous blood specimen / Unknown 10/01/2022 9:14 AM EDT 10/01/2022 9:15 AM EDT Narrative [facility] - 10/01/2022 10:04 PM EDT FASTING:YES FASTING: YES Shahla Rocha MD LAB BLOOD ORDERABLES Final Result [facility] [address], [place] [address] [employer] [facility] [address] [place] [address] from Last 3 Months or Most Recently Relevant to Health Maintenance [place] [address] [place] [address] C3 Care Teams Cabinet Mounter Relationship Specialty Start Date End Date Shahla Person MD [address] [place] [phone] PCP - General Family Medicine 12/12/18
--- OUTSIDE RECORDS SUMMARY | 2024-08-14 12:57 | XMS_ITS | Encounter Summary ---
Author Organization [facility] Address [address] [place] [address] Care Team Providers Care Camera Systems Engineer Name Role Phone Kimberly Grant DO Primary Care Pro vider Unavailable Shahla Calvert MD Primary Care Provide r Unavailable Encounter Details Date Type Department Care Team Description 10/05/2016 Release of Information Medical Records [address] [place] [id number] Abstract, Provider Social History Tobacco Use Types [...] on filedocumented in this encounter Care Teams Camera Systems Engineer Relationship Specialty Start Date End Date Kimberly Grant DO PCP - General Internal Medicine 07/12/15 03/28/20 Shahla Calvert MD PCP - General Internal Medicine 03/29/20 documented as of this encounter
--- OUTSIDE RECORDS SUMMARY | 2024-08-14 12:57 | XMS_ITS | Encounter Summary ---
Author Organization [facility] Address [address] [place] [address] Care Team Providers Care Development Executive Name Role Phone Shahla Calvert MD Primary Care Provide r Unavailable Reason for Visit * Reason Onset Date Comments Medical Records 03/29/2020 Encounter Details Date Type Department Care Team Description 03/29/2020 Telephone OBGYN - [place] [address] [place] [address] Sherrie Ashby MD [address] [facility] [address] [place] [id number] Medical Records Social History Tobacco Use Types Packs/Day Years Used Date Smoking Tobacco: Never Smokeless Tobacco: Never Alcohol Use Standard Drinks/Week Comments No 0 (1 standard drink = 0.6 oz pur e alcohol) Sex Assigned at Date Recorded Female 09/11/2021 8:06 AM E DT documented as of this encounter Miscellaneous Notes * Telephone Encounter - Lluvia Iyer - 03/29/2020 3:18 PM EST Medical records rec'd from [facility] from Rudy Sanz (phone [phone]). Patient diagnosed with PCOS. I spokw with patient to schedule an appointment she states she is not sure why sheneeds one. She is contacting [facility]. Records placed in Dr Digna peña. documented in this encounter Plan of Treatment Not on file documented as of this encounter Visit Diagnoses Not on filedocumented in this encounter Care Teams Development Executive Relationship Specialty Start Date End Date Shahla Calvert MD PCP - General Internal Medicine 03/29/20 documented as of this encounter
--- OUTSIDE RECORDS SUMMARY | 2024-08-14 12:57 | XMS_ITS | Data Portability ---
Author Organization [place] - [facility], Allergy Address [address] [address] Care Team Providers Care Tailor'S Aide Name Role Phone MANUELA ZACARIAS Primary Care Provider Assessment No assessment recorded. Plan of Treatment Reminders Order Date Submit Date Provider Last Modified By Organization Details Last Modified Time Details Appointments Hearing Test 2024 02:00P M Hearing Test Not available Not available Not available Establish ed 10 2024 02:30P M KIP ROSS MD Not available Not available Not available Lab None recorded. Referral None recorded. Procedures None recorded. Surgeries None recorded. Imaging None recorded. Medication Orders None recorded. Patient TargetsNo targets recorded. Patient InstructionsNo instructions recorded. Reason for Referral None Reported. Results Created Date Observation Date Name Description Value Unit Range Abnormal Flag Note LastModifiedBy Organization Detail LastModifiedTime 11/01/19 audio gram No observ ation record ed. BARCODE Not Available 2023 16:28:25 12/10/19 24 10/05/2022 imagi ng/di agnos tic resul t No observ ation record ed. [email or web address] Not Available 22:57:42 12/10/19 24 11/05/2018 imagi ng/di agnos tic resul t No observ ation record ed. [email or web address] Not Available 22:57:53 12/10/19 24 11/20/2018 imagi ng/di agnos tic resul t No observ ation record ed. [email or web address] Not Available 22:57:54 12/10/19 24 01/22/2019 imagi ng/di agnos tic resul t No observ ation record ed. [email or web address] Not Available 22:58:11 12/10/19 24 01/22/2019 audio gram No observ ation record ed. [email or web address] Not Available 22:58:12 12/10/19 24 01/22/2023 imagi ng/di agnos tic resul t No observ ation record ed. [email or web address] Not Available 22:58:27 Result Notes None recorded. Problems Name Problem SNOMED Code Status Onset Date Resolution Date Notes Provider Name and Address Organization Details Recorded Time Refractor y migraine 621282428 Active 2022 Other migraine, intractab le, without status migrainos us; Note: Date Diagnosed : 01/22/2023 12:53 PM (G43.819) Not Available [facility] 4 02:14:49 Bilateral earache 781381646 Active 2018 Otalgia, bilateral ; Note: Date Diagnosed : 11/05/2018 12:04 PM (H92.03) Not Available [facility] 4 02:13:19 Dizziness and giddiness 883424456 Active 2016 Dizziness and giddiness ; Note: Date Diagnosed : 7 12:17 PM (R42) Not Available [facility] 4 02:14:00 Tinnitus of right ear 99345410675 08 Active 2015 Tinnitus, right ear; Note: Date Diagnosed : 10/31/2015 12:30 PM (H93.11) Not Available [facility] 4 02:14:35 Sensorine ural hearing loss of bilateral ears 253338162 Active 2018 Sensorine ural hearing loss, bilateral ; Note: Date Diagnosed : 01/22/2019 12:31 PM (H90.3) Not Available [facility] 4 02:14:38 Vertigo of central origin 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 Active 2022 Vertigo of central origin; Note: Date Diagnosed : 01/22/2023 12:53 PM (H81.4) Not Available [facility] 4 02:13:24 Headache 56312653 Active 2016 Headache; Note: Date Diagnosed : 7 12:39 PM (R51) Not Available [facility] 4 02:14:11 Allergic rhinitis 19323975 Active 2018 Other allergic rhinitis; Note: Date Diagnosed : 01/22/2019 12:51 PM (J30.89) Not Available [facility] 4 02:13:31 Sensorine ural hearing loss 91254271 Active 2015 Sensorine ural hearing loss, unilatera l, right ear, with unrestric jazmyn hearing on the contralat eral side; Note: Date Diagnosed : 10/31/2015 12:30 PM (H90.41) Not Available [facility] 4 02:13:08 Abnormal auditory perceptio n 61282592 Active 2018 Other abnormal auditory perceptio ns, bilateral ; Note: Date Diagnosed : 11/05/2018 12:04 PM (H93.293) Not Available [facility] 4 02:14:50 Problem Notes None recorded. Procedures Surgical History Date Name Laterality Status Provider Name and Address Organization Details Recorded Time 10/31/19 24 Air only Audio (33783) completed Manuela Bray MA - [facility] 10/31/2023 16:40:20 10/31/19 24 Tympanometry (01142) completed Manuela Bray MA - [facility] 10/31/2023 16:40:30 10/31/19 24 SRT & Speech Recognition (89764) completed Manuela Bray MA - [facility] 10/31/2023 16:40:23 section completed Emerald Goodson MA - [facility] 10/31/2023 15:55:09 Imaging Results Imaging Date Name Status LastModified by [facility] Details LastModified Time 11/01/2023 audiogram completed BARCODE Information no t available 11/01/2023 16:28:25 10/05/2022 imaging/diagno stic result completed Information not available 12/10/2023 22:57:42 11/05/2018 imaging/diagno stic result completed Information not available 12/10/2023 22:57:53 11/20/2018 imaging/diagno stic result completed Information not available 12/10/2023 22:57:54 01/22/2019 imaging/diagno stic result completed Information not available 12/10/2023 22:58:11 01/22/2019 audiogram completed Information not available 12/10/2023 22:58:12 01/22/2023 imaging/diagno stic result completed Information not available 12/10/2023 22:58:27 Procedure Notes None recorded. Medical Equipment None Reported. Allergies Allergen ID Allergen Name Allergen Category Reaction Reaction Severity Criticality Documentation Date Start Date Code Code System Note Provider Name and Address Organization Details Recorded Time 83065 amoxicill in / clavulana te medicatio n other Not available Not available 09/03/2023 RxNorm React ion: unkno wn, unspe cifie d;; Not Available [facility] 00:51:08 Medications Name Sig Start Date Stop Date Status Note LastModified by Organization Details LastModified Time cyclobenz aprine 10 mg tablet 01/22 completed Medicati on ID: [id number] B rand Name: cyclobejacek zaprine Send Method: E-Prescr ibed Sub s Allowed: subs OK Speci al Instruct ion: TAKE 1 TABLET EVERY 8 HOURS NEEDED FOR MUSCLE SPASMS M edicatio nGeneric Name: cycloben zaprine Not Available Not Available Not Available Mirena 21 mcg/24 hr (up to 8 years) 52 mg intrauter ine device 01/22 completed Medicati on ID: [id number] D uration Value: 30 Brand Name: Mirena S end Method: E-Prescr ibed Sub s Allowed: subs OK Speci al Instruct ion: [facility] Medicat ionGener icName: Mirena Not Available Not Available Not Available metformin 500 mg tablet TAKE 1 TABLET BY MOUTH TWICE DAILY WITH BREAKFAS T AND EVENING MEAL active Not Available Not Available No t Available cyanocoba irina (vit B-12) ER 1,000 mcg tablet,ex tended release 01/22 completed Medicati on ID: [id number] B rand Name: cyanocob alamin (vitamin B-12) Se nd Method: E-Prescr ibed Sub s Allowed: subs OK Speci al Instruct ion: TAKE 1 TABLET BY MOUTH EVERY DAY Medi cationGe nericNam e: cyanocob alamin (vitamin B-12) Not Available Not Available Not Available prednison e 10 mg tablet 01/22 completed Medicati on ID: [id number] P bobby d By Name: MELONY Seals nd Name: predniso ne Send Method: E-Prescr ibed Sub s Allowed: subs OK Speci al Instruct ion: 6 tabs daily for 9 days then taper to 5 tablets at once day 10, 4 tablets at once day 11, 3 tablets at once day 12, 2 tablets at once day 13, one tablet day 14 Medic ationGen ericName : predniso ne Not Available Not Available Not Available doxycycli ne hyclate 100 mg capsule 01/22 completed Medicati on ID: [id number] B rand Name: doxycycl ine hyclate Send Method: E-Prescr ibed Sub s Allowed: subs OK Medic ationGen ericName : doxycycl ine hyclate Not Available Not Available Not Available clindamyc in HCl 300 mg capsule 10/30 completed Not Available Not Available Not Available cetirizin e 10 mg tablet active Medicati on ID: [id number] B rand Name: cetirizi ne Send Method: E-Prescr ibed Sub s Allowed: subs OK Speci al Instruct ion: TAKE 1 TABLET BY MOUTH EVERY DAY Medi cationGe nericNam e: cetirizi ne Not Available Not Available Not Available azithromy antonietta 250 mg tablet 01/22 completed Medicati on ID: [id number] B rand Name: azithrom ycin Sen d Method: E-Prescr ibed Sub s Allowed: subs OK Medic ationGen ericName : azithrom ycin Not Available Not Available Not Available ibuprofen 800 mg tablet 01/22 completed Medicati on ID: [id number] B rand Name: ibuprofe n Send Method: E-Prescr ibed Sub s Allowed: subs OK Medic ationGen ericName : ibuprofe n Not Available Not Available Not Available fluconazo le 150 mg tablet TAKE 1 TABLET BY MOUTH ONCE DAILY IN THE MORNING FOR 1 DOSE 10/30 completed Not Available Not Available Not Available benzonata te 200 mg capsule 01/22 completed Medicati on ID: [id number] B rand Name: benzonat ate Send Method: E-Prescr ibed Sub s Allowed: subs OK Speci al Instruct ion: TAKE 1 CAPSULE BY MOUTH THREE TIMES DAILY NEEDED FOR COUGH Me dication GenericN melva: benzonat ate Not Available Not Available Not Available clarithro mycin 500 mg tablet 01/22 completed Medicati on ID: [id number] B rand Name: clarithr omycin S end Method: E-Prescr ibed Sub s Allowed: subs OK Medic ationGen ericName : clarithr omycin Not Available Not Available Not Available prednison e 20 mg tablet 01/22 completed Medicati on ID: [id number] B rand Name: predniso ne Send Method: E-Prescr ibed Sub s Allowed: subs OK Speci al Instruct ion: TAKE 2 TABLETS BY MOUTH EVERY DAY Medi cationGe nericNam e: predniso ne Not Available Not Available Not Available spironola ctone 100 mg tablet 01/22 completed Medicati on ID: [id number] B rand Name: spironol actone S end Method: E-Prescr ibed Sub s Allowed: subs OK Speci al Instruct ion: TAKE 1 TABLET BY MOUTH EVERY DAY Medi cationGe nericNam e: spironol actone Not Available Not Available Not Available phentermi ne 37.5 mg tablet TAKE 1 TABLET BY MOUTH DAILY BEFORE BREAKFAS T 10/30 completed Not Available Not Available Not Available fexofenad ine 180 mg tablet TAKE 1 TABLET BY MOUTH DAILY NEEDED FOR ALLERGIE S 10/30 completed Not Available Not Available Not Available doxycycli ne monohydra te 100 mg tablet 01/22 completed Medicati on ID: [id number] D uration Value: 7 Brand Name: doxycycl ine monohydr ate Send Method: E-Prescr ibed Sub s Allowed: subs OK Speci al Instruct ion: TAKE 1 TABLET TWICE DAILY Me dication GenericN melva: doxycycl ine monohydr ate Not Available Not Available Not Available triamcino lone acetonide 0.1 % topical cream APPLY TO THE AFFECTED AREA(S) TOPICALL Y TWICE DAILY IN THE MORNING AND AT BEDTIME NEEDED FOR PAIN AND FOR SWELLING FOR UP TO 10DAYS 10/30 completed Not Available Not Available Not Available Sudogest 30 mg tablet 01/22 completed Medicati on ID: [id number] B rand Name: Sudogest Send Method: E-Prescr ibed Sub s Allowed: subs OK Medic ationGen ericName : Sudogest Not Available Not Available Not Available citalopra m 20 mg tablet 01/22 completed Medicati on ID: [id number] B rand Name: citalopr am Send Method: E-Prescr ibed Sub s Allowed: subs OK Speci al Instruct ion: TAKE 1 TABLET BY MOUTH EVERY DAY Medi cationGe nericNam e: citalopr am Not Available Not Available Not Available meclizine 25 mg tablet active Medicati on ID: [id number] B rand Name: meclizin e Send Method: E-Prescr ibed Sub s Allowed: subs OK Speci al Instruct ion: TAKE 1 TABLET BY MOUTH THREE TIMES DAILY NEEDED FOR DIZZINES S Medica tionGene ricName: meclizin e Not Available Not Available Not Available pyridoxin e (vitamin B6) 50 mg tablet TAKE 1 TABLET BY MOUTH THREE TIMES DAILY AFTER MEALS 10/30 completed Not Available Not Available Not Available Banophen 25 mg capsule 01/22 completed Medicati on ID: [id number] B rand Name: Banophen Send Method: E-Prescr ibed Sub s Allowed: subs OK Speci al Instruct ion: TAKE 1 CAPSULE AT BEDTIME Medicati onGeneri cName: Banophen Not Available Not Available Not Available zinc 50 mg tablet 01/22 completed Medicati on ID: [id number] B rand Name: Chelated Zinc Sen d Method: E-Prescr ibed Sub s Allowed: subs OK Speci al Instruct ion: TAKE 1 TABLET EVERY DAY Medi cationGe nericNam e: Chelated Zinc Not Available Not Available Not Available prednisol one 15 mg/5 mL oral solution 01/22 completed Medicati on ID: [id number] B rand Name: predniso lone Sen d Method: E-Prescr ibed Sub s Allowed: subs OK Speci al Instruct ion: TAKE 15ml BY MOUTH EVERY DAY FOR 2 DAYS, 10 ML FOR 3 DAYS, 5 ML FOR 3 DAYS, THEN STOP Med icationG enericNa me: predniso lone Not Available Not Available Not Available azelastin e 137 mcg (0.1 %) nasal spray Inhale 2 spray into both nostrils twice a day as directed 01/22 completed Medicati on ID: [id number] P bobby marsh By Name: MELONY Beckford nd Name: azelasti ne Send Method: E-Prescr ibed Sub s Allowed: subs OK Medic ationGen ericName : azelasti ne Not Available Not Available Not Available ibuprofen 600 mg tablet 01/22 completed Medicati on ID: [id number] B rand Name: ibuprofe n Send Method: E-Prescr ibed Sub s Allowed: subs OK Speci al Instruct ion: TAKE 1 TABLET EVERY 8 HOURS NEEDED FOR PAIN Med icationG enericNa me: ibuprofe n Not Available Not Available Not Available albuterol sulfate HFA 90 mcg/actua tion aerosol inhaler active Medicati on ID: [id number] B rand Name: albutero l sulfate Send Method: E-Prescr ibed Sub s Allowed: subs OK Medic ationGen ericName : albutero l sulfate Not Available Not Available Not Available ipratropi um bromide 42 mcg (0.06 %) nasal spray 01/22 completed Medicati on ID: [id number] B rand Name: ipratrop ium bromide Send Method: E-Prescr ibed Sub s Allowed: subs OK Speci al Instruct ion: USE 2 SPRAYS IN EACH NOSTRIL THREE TIMES DAILY Me dication GenericN melva: ipratrop ium bromide Not Available Not Available Not Available ondansetr on 4 mg disintegr ating tablet DISSOLVE 1 TABLET ON TONGUE EVERY 6 TO 8 HOURS NEEDED FOR NAUSEA AND VOMITING 10/30 completed Not Available Not Available Not Available fluticaso ne propionat e 50 mcg/actua tion nasal spray,christine pension INSTILL 2 SPRAYS IN EACH NOSTRIL ONCE DAILY IN THE MORNING active Not Available Not Available No t Available drospiren one 3 mg-ethiny l estradiol 0.03 mg tablet active Medicati on ID: [id number] B rand Name: drospire none-eth inyl estradio l Send Method: E-Prescr ibed Sub s Allowed: subs OK Medic ationGen ericName : drospire none-eth inyl estradio l Not Available Not Available Not Available doxycycli ne hyclate 100 mg tablet 01/22 completed Medicati on ID: [id number] B rand Name: doxycycl ine hyclate Send Method: E-Prescr ibed Sub s Allowed: subs OK Speci al Instruct ion: TAKE 1 TABLET BY MOUTH TWICE DAILY UNTIL FINISHED Medicat ionGener icName: doxycycl ine hyclate Not Available Not Available Not Available loratadin e 10 mg tablet 01/22 completed Medicati on ID: [id number] D uration Value: 30 Brand Name: heidy ne Send Method: E-Prescr ibed Sub s Allowed: subs OK Speci al Instruct ion: TAKE 1 TAB BY MOUTH DAILY. M edicatio nGeneric Name: heidy lemus Not Available Not Available Not Available NuvaRing 0.12 mg-0.015 mg/24 hr vaginal 01/22 completed Medicati on ID: [id number] B rand Name: NuvaRing Send Method: E-Prescr ibed Sub s Allowed: subs OK Speci al Instruct ion: INSERT 1 RING VAGINALL Y, LEAVE IN FOR THREE WEEKS THEN REMOVE M edicatio nGeneric Name: NuvaRing Not Available Not Available Not Available Flovent HFA 110 mcg/actua tion aerosol inhaler 01/22 completed Medicati on ID: [id number] D uration Value: 30 Brand Name: Flovent HFA Send Method: E-Prescr ibed Sub s Allowed: subs OK Speci al Instruct ion: INHALE 1 PUFF BY MOUTH TWICE DAILY FOR 2 WEEKS Me dication GenericN melva: Flovent HFA Not Available Not Available Not Available fluocinol one 0.01 % scalp oil and shower cap 01/22 completed Medicati on ID: [id number] B rand Name: fluocino lone and shower cap Send Method: E-Prescr ibed Sub s Allowed: subs OK Speci al Instruct ion: APPLY SPARINGL Y TO SCALP masajee abby y cubra. dejelo puesto por 4 horas o de kenzie noche al otro akira luego enjuague . Medica tionGene ricName: fluocino lone and shower cap Not Available Not Available Not Available Payam DM 01/22 completed Medicati on ID: [id number] D uration Value: 3 Brand Name: Payam MACDONALD Send Method: E-Prescr ibed Sub s Allowed: subs OK Speci al Instruct ion: TAKE TWO TEASPOON FUL BY MOUTH EVERY 4 HOURS NEEDED M edicatio nGeneric Name: Payam DM Not Available Not Available Not Available ProAir HFA 01/22 completed Medicati on ID: [id number] D uration Value: 17 Brand Name: ProAir HFA Send Method: E-Prescr ibed Sub s Allowed: subs OK Speci al Instruct ion: TAKE 2 PUFFS EVERY 4 HOURS NEEDED FOR COUGHING OR WHEEZING Medicat ionGener icName: ProAir HFA Not Available Not Available Not Available Sudogest 12-hour 120 mg tablet,ex tended release 01/22 completed Medicati on ID: [id number] B rand Name: Sudogest 12-hour Send Method: E-Prescr ibed Sub s Allowed: subs OK Speci al Instruct ion: TAKE 1 TABLET BY MOUTH EVERY TWELVE HOURS Me dication GenericN melva: Sudogest 12-hour Not Available Not Available Not Available Vitamin D3 50 mcg (2,000 unit) capsule 01/22 completed Medicati on ID: [id number] B rand Name: Vitamin D3 Send Method: E-Prescr ibed Sub s Allowed: subs OK Speci al Instruct ion: TAKE 1 CAPSULE EVERY DAY Medi cationGe nericNam e: Vitamin D3 Not Available Not Available Not Available Miconazol e-3 prefilled ,cream,wi pes 4 %(200 mg)-2 %(9 gram) vaginal kit PUT 1 SUPPOSIT ORY IN VAGINA EVERY NIGHT AT BEDTIME FOR 3 NIGHTS. USE CREAM ON OUTSIDE VAGINA TWICE DAILY FOR UP TO 7 DAYS 10/30 completed Not Available Not Available Not Available Asmanex HFA 100 mcg/actua tion aerosol inhaler INHALE 1 PUFF BY MOUTH TWICE DAILY active Not Available Not Available No t Available fluticaso ne 232 mcg-salme terol 14 mcg/actua tion breath activated powdr 01/22 completed Medicati on ID: [id number] B rand Name: fluticas one propion- salmeter ol Send Method: E-Prescr ibed Sub s Allowed: subs OK Medic ationGen ericName : fluticas one propion- salmeter ol Not Available Not Available Not Available WesTab Plus 27 mg iron-1 mg tablet TAKE 1 TABLET BY MOUTH EVERY DAY active Not Available Not Available No t Available Ozempic 1 mg/dose (4 mg/3 mL) subcutane ous pen injector Inject 1 MG SUBCUTAN EOUSLY EVERY 7 DAYS IN THE ABDOMEN, THIGHS OR UPPER ARM. ROTATE INJECTIO N SITES. DO NOT START BEFORE February 25 202310/30 completed Not Available Not Available Not Available Paxlovid 300 mg (150 mg x 2)-100 mg tablets in a dose pack TK 2 NIRMATRE LVIR TS AND 1 RITONAVI R T TOGETHER PO TWICE DAILY 10/30 completed Not Available Not Available Not Available Ozempic 0.25 mg or 0.5 mg (2 mg/3 mL) subcutane ous pen injector INJECT 0.5mg SUBCUTAN EOUSLY ONCE A WEEK 10/30 completed Not Available Not Available Not Available Vitals None Recorded Social History None recorded. Functional Status None recorded. Mental Status None recorded. Family History Nothing Reported. Medical History Condition Response Allergies/Hayfever Y Asthma Y Gynecological HistoryNo gynecological history recorded. Obstetrics History GPAL:G 0 P 0 0 0 0 Past Encounters Encounter ID Performer Location Encounter Start Date Encounter Closed Date Diagnosis/Indication Diagnosis SNOMED-CT Code Diagnosis ICD10 Code Diagnosis Note [id number] KIP ROSS MD [facility] [address] [address] 10/31/2023 15:25:11 10/31/2023 17:01:13 Refractory migraine [id number] G43.819 Patient's migraine symptoms appear to be much better controlled with identifica tion and eliminatio n of dietary triggers such as caffeine and dehydratio n. I recommende d she continue on this pathway. At this point there is no considerat ion for pharmacolo gic interventi on in light of the fact that she is currently . Vertigo of central origin [id number] H81.4 Sensorineu ral hearing loss of bilateral ears 379162215 H90.3 Audiologic al evaluation results:Ri ght ear:{{Norm al Mild Mo derate Mod erately-se mary* Rosamaria re Profoun d}} {{hearing sloping to a mild slopi ng to a moderate s loping to moderately severe slo ping to severe slo ping to profound f lat high frequency low frequency mid frequency cookie bite bates curve rais ing to a moderate#} } {{with sen sorineural hearing loss with* cond uctive hearing loss with mixed hearing loss with}} {{excellen t good didi r poor* no measurable }} word recognitio n.Left ear:{{Norm al Mild Mo derate Mod erately-se mary* Rosamaria re Profoun d}} {{with sen sorineural hearing loss with* cond uctive hearing loss with mixed hearing loss with}} {{excellen t* good fa ir poor no measurable }} word recognitio n. Tympanomet ry:Right Ear:{{Type A* Type As Type Ad Type C Type C, shallow & rounded Ty pe B Type B with large volume Cou ld not maintain a hermetic seal}}Left Ear:{{Type A* Type As Type Ad Type C Type C, shallow & rounded Ty pe B Type B with large volume Cou ld not maintain a hermetic seal}} This patient was provided a copy of her audiogram to bring back to her audiologis t at [facility] audiology. Her speech discrimina tion is somewhat improved today. We did discuss the possibilit y that her hearing could worsen over time and if so she may be a candidate for cochlear implantati on at some time in the future. Health Concerns Section Related Observation LastModified by Organization Detai ls LastModified Time None Recorded Concern Status LastModified by Organization Details LastModified Time None Recorded Advance Directives Directive None Recorded Payers Encounter Date Sequence Insurance Name Policy Number Policy Sanchez Covered Member ID Sanchez Member ID Guarantor Name 10/31/2023 1 [place]: [facility] Rain [employer]air [id number] [employer] Notes Date Note Type Note Provider Name and Address Organization Details Recorded Time 10/31/2023 text/html 33-year-old oscar quevedo who has been a patient of the practice since 2016. She has an idiopathic bilateral progressive sensorineural hearing loss. She's had MRI scan of the brain, CT scan of the temporal bones, Lyme disease testing, all of which have been negative. She's currently using binaural amplification dispensed through [facility] audiology. She's continued to have more difficulty hearing in a larger variety of different listening situations. Last audiogram showed worsening in her speech discrimination bilaterally to the 20 to 32% range. Patient recently got new earmolds and a new device. Doing much better with binaural amplification.I reevaluated her back in January 2023 at which point she was having a constellation of symptoms including ocular pain followed by severe headache followed by vertigo, nausea and vomiting. This can be brought on by rapid head or visual stimulation. Symptoms can last anywhere from a few minutes but can last all day. She had been getting a headache about once a month. She has been diagnosed with ocular migraines by her geophysics scientist. We discussed the concept of vestibular migraine and I gave her a significant amount of literature to review regarding identification and elimination of migraine triggers. Patient reports significant improvement in the frequency and severity of headaches. She was able to read and follow the migraine literature that I provided. She stopped drinking coffee which she thinks was a big help. She is also been staying more hydrated now that she is . KIP ROSS MD [address] [place] [address], [id number], [facility] - [facility] 10/31/2023 17:33:55 OBGyn Episode No OBEpisode recorded.
--- OUTSIDE RECORDS SUMMARY | 2024-08-14 12:57 | XMS_ITS | Encounter Summary ---
Author Organization [employer] Address [address] [facility] 7t [place] [address] Care Team Providers Care Junior Estimator Name Role Phone Shahla Person MD Primary Care Provide r Encounter Details Date Type Department Care Team ([facility] st Contact Info) Description 08/13/2024 2:45 PM EDT Office Visit [facility] [address] [place] [address] [phone] Shahla Person MD [address] [place] [address] Encounter for preventive care (Primary Dx); Moderate persistent asthma without complication; Dietary counseling; Exercise counseling; Class 3 severe obesity due to excess calories with serious comorbidity and body mass index (BMI) of 40.0 to 44.9 in adult Social History Tobacco Use Types Packs/Day Years [...] AM EDT documented as of this encounter Last Filed Vital Signs Vital Sign Reading [...] Mass Index 44.2 08/13/2024 2:59 PM EDT documented in this encounter Progress Notes * Shahla Rocha MD - 08/13/2024 2:45 PM EDT SUBJECTIVE: Rain Adair is a 34 y.o. year old female who presents for Physical . 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 Diet:regular Exercise:sedentary LMP:patient has an IUD Pap Smear:due on 07/22/2029 Hospitalizations/Surgeries: Eye Care:patient has an appointment next month Dental Care:up to date Hearing Care:Patient has hearing deficit she has an appointment on 10/2024 PMHx:see below Immunizations: Up to date Social History Social History Narrative Lives with son Works at [employer] Patient Active Problem List Diagnosis Acne vulgaris Anxiety Hearing loss Hirsutism L4-L5 disc bulge Lower abdominal pain Lumbar back pain Mild persistent asthma Moderate persistent asthma Neck pain PCOS (polycystic ovarian syndrome) Severe obesity (CMS/HCC) Asthma in adult Muscle strain of gluteal region, right, initial encounter Vaginal candidiasis Family planning Obesity (BMI 35.0-39.9 without comorbidity) Congestion of nasal sinus Encounter for preventive care Vertigo Positive urine test Positive blood test Seasonal allergies 22 weeks gestation of No family history on file. Review of Systems Constitutional: Negative. HENT: Positive for hearing loss. Negative for congestion, dental problem, drooling, ear discharge, ear pain, facial swelling, mouth sores, nosebleeds, postnasal drip, rhinorrhea, sinus pressure, sinus pain, sneezing, sore throat, tinnitus, trouble swallowing and voice change. Respiratory: Negative. Cardiovascular: Negative. Gastrointestinal: Negative. OBJECTIVE: Vitals: 08/13/24 1459 BP: 128/70 BP Location: Left arm Patient Position: Standing BP Cuff Size: Adult Pulse: 100 Resp: 21 Temp: 98.1 ??F (36.7 ??C) TempSrc: Oral SpO2: 99% Weight: 204 lb 4 oz (92.6 kg) Height: 4' 9 (1.448 m) Physical Exam Constitutional: Appearance: Normal appearance. Cardiovascular: Rate and Rhythm: Normal rate and regular rhythm. Pulmonary: Effort: Pulmonary effort is normal. Breath sounds: Normal breath sounds. Abdominal: General: Abdomen is flat. Palpations: Abdomen is soft. Musculoskeletal: Right lower leg: No edema. Left lower leg: No edema. Neurological: Mental Status: She is alert. Follow Up: No follow-ups on file. Current Outpatient Medications on File Prior to Visit Medication Sig Dispense Refill acetaminophen (Tylenol) 160 MG/5ML elixir Take 20.3 mL (650 mg) by mouth every 6 (six) hours if needed for headaches. 120 mL 0 albuterol (2.5 MG/3ML) 0.083% nebulizer solution USE 1 AMPULE USING A NEBULIZER THREE TIMES DAILY 90 mL 0 albuterol (Ventolin HFA) 108 (90 Base) MCG/ACT inhaler INHALE 2 PUFFS BY MOUTH EVERY 4 TO 6 HOURS NEEDED 18 g 2 nhekycr-xgcuzonlvmfza-rvzrkpgw (Excedrin Migraine) 250-250-65 MG tablet one pill 2 times a day as needed for headache celecoxib (CeleBREX) 200 MG capsule TAKE 1 CAPSULE BY MOUTH TWICE DAILY WITH FOOD NEEDED FOR PAIN. AVOID OTHER NSAIDs. cetirizine (ZyrTEC) 10 MG tablet Take 1 tablet (10 mg) by mouth in the morning. 30 tablet 1 cetirizine (ZyrTEC) 10 MG tablet Take 1 tablet (10 mg) by mouth in the morning. 30 tablet 2 cholecalciferol (Vitamin D-3) 50 MCG (2000 UT) capsule Take 1 capsule by mouth at bed time. clotrimazole (Lotrimin) 1 % vaginal cream Insert one applicator per vagina at bedtime for 7 nights 45 g 0 cyclobenzaprine (Flexeril) 10 MG tablet Take 10 mg by mouth if needed in the morning and at bedtime. docusate sodium (Colace) 100 MG capsule Take 1 capsule by mouth every 12 (twelve) hours. ergocalciferol (Vitamin D2) 1.25 MG (75553 UT) capsule Take 1 capsule by mouth 1 (one) time per week. fexofenadine (Selena) 180 MG tablet Take 1 tablet (180 mg) by mouth if needed each day (Allergies). 90 tablet 0 fluticasone (Flonase) 50 MCG/ACT nasal spray Administer 2 sprays into each nostril Once per day. 16g 1 ipratropium (Atrovent) 0.06 % nasal spray USE 2 SPRAYS IN EACH NOSTRIL UP TO FOUR TIMES DAILY ketotifen (Zaditor) 0.025 % ophthalmic solution PLACE 1 TO 2 DROPS INTO THE AFFECTED EYE(S) UP TO TWICE DAILY meclizine (Antivert) 25 MG tablet TAKE 1 TABLET BY MOUTH THREE TIMES DAILY NEEDED FOR DIZZINESS 30 tablet 0 metFORMIN (Glucophage) 500 MG tablet Take 1 tablet (500 mg) by mouth with breakfast and with evening meal. 60 tablet 11 Mometasone Furoate (Asmanex HFA) 100 MCG/ACT aerosol Inhale 1 puff 2 times daily. 13 g 2 montelukast (Singulair) 10 MG tablet Take 1 tablet by mouth at bed time. ondansetron ODT (Zofran-ODT) 4 MG disintegrating tablet DISSOLVE 1 TABLET ON TONGUE EVERY 6 TO 8 HOURS NEEDED FOR NAUSEA AND VOMITING. 20 tablet 0 SUMAtriptan (Imitrex) 50 MG tablet take 1 tablet by mouth after onset of migraine; may repeat after2 hours if headache returns,not to exceed 200mg in 24hrs tiZANidine (Zanaflex) 4 MG tablet Take 4 mg by mouth if needed in the morning and at bedtime. triamcinolone (Kenalog) 0.1 % cream APPLY TO THE AFFECTED AREA(S) TOPICALLY TWICE DAILY IN THE MORNING AND AT BEDTIME NEEDED FOR PAIN AND FOR SWELLING FOR UP TO 10DAYS 45 g 1 No current facility-administered medications on file prior to visit. Problem List Items Addressed This Visit Encounter for preventive care - Primary See HPI Moderate persistent asthma Stable c/w same interventions Other Visit Diagnoses Dietary counseling Exercise counseling Class 3 severe obesity due to excess calories with serious comorbidity and body mass index (BMI) of40.0 to 44.9 in adult documented in this encounter Miscellaneous Notes * Assessment & Plan Note - Shahla Rocha MD - 08/13/2024 4:29 PM EDT Associated Problem(s): Moderate persistent asthma Stable c/w same interventions * Assessment & Plan Note - Shahla Rocha MD - 08/13/2024 4:28 PM EDT Associated Problem(s): Encounter for preventive care See HPI documented in this encounter Plan of Treatment Upcoming Encounters Date Type Department Care Team (Late st Contact Info) Description 08/24/2024 10:00 AM EDT Office Visit [facility] [address] [place] [address] Elizabeth Smith, OD [address] [place] [address] documented as of this encounter Visit Diagnoses Diagnosis Encounter for preventive care- Primary Moderate persistent asthma without complication Dietary counseling Dietary surveillance and counseling Exercise counseling Class 3 severe obesity due to excess calories with serious comorbidity and body mass index (BMI) of 40.0 to 44.9 in adult documented in this encounter Additional Health Concerns Assessment Noted Time PHQ-9 Depression Total Score: 0 08/14/19 25 3:01 PM EDT documented as of this encounter Care Teams Junior Estimator Relationship Specialty Start Date End Date Shahla Person MD [address] [place] [address] PCP - General Family Medicine 12/12/18 documented as of this encounter
--- OUTSIDE RECORDS SUMMARY | 2024-08-14 12:57 | XMS_ITS | Encounter Summary ---
Author Organization [employer] Address [address] [facility] [address] [place] [address] Care Team Providers Care Organisation And Methods Analyst Name Role Phone Shahla Person MD Primary Care Provide r Reason for Visit * Reason Comments Med Refill Encounter Details Date Type Department Care Team (Late Contact Info) Description 01/16/2023 Refill [facility] [address] [place], [place] [phone] Shahla Person MD [address] [place], [place] [phone] Obesity (BMI 35.0-39.9 without comorbidity) Social History Tobacco Use Types Packs/Day Years Used Date Smoking Tobacco: Never Smokeless Tobacco: Never Alcohol Use Standard Drinks/Week Comments Never 0 (1 standard drink = 0.6 oz pur e alcohol) PHQ-2 Answer Date Recorded Patient Health Questionnaire-2 Score 0 03/26/2022 Depression Answer Date Recorded Patient Health Questionnaire-2 Score 0 03/26/2022 Comments No Sex and Gender Information Value Date Recorded Sex Assigned at Female 02/19/2022 10:31 AM EDT Legal Sex Female 10:31 AM EDT Gender Identity Female 02/19/2022 10:31 AM EDT Sexual Orientation Straight 02/19/2022 10 :31 AM EDT documented as of this encounter Plan of Treatment Upcoming Encounters Date Type Department Care Team (Late Contact Info) Description 08/24/2024 10:00 AM EDT Office Visit [facility] [address] [place], [place] [phone] Elizabeth Smith, OD [address] [place] [address] documented as of this encounter Visit Diagnoses Diagnosis Obesity (BMI 35.0-39.9 without comorbidity) documented in this encounter Care Teams Organisation And Methods Analyst Relationship Specialty Start Date End Date Shahla Person MD [address] [place] [address] PCP - General Family Medicine 12/12/18 documented as of this encounter
--- OUTSIDE RECORDS SUMMARY | 2024-08-14 12:57 | XMS_ITS | Encounter Summary ---
Author Organization [facility] Address [address] [place] [address] Care Team Providers Care Tower Erector Helper Name Role Phone Shahla Calvert MD Primary Care Provide r Unavailable Encounter Details Date Type Department Care Team Description 06/15/2022 Transfer Records Medical Records [address] [place] [address] Abstract, Provider Social History Tobacco Use Types [...] on filedocumented in this encounter Care Teams Tower Erector Helper Relationship Specialty Start Date End Date Shahla Calvert MD PCP - General Internal Medicine 03/29/20 documented as of this encounter
--- OUTSIDE RECORDS SUMMARY | 2024-08-14 12:57 | XMS_ITS | Encounter Summary ---
Author Organization [employer] Address [address] [facility] 7t [place] [address] Care Team Providers Care Driver Lifter Of Sanitation Truck Name Role Phone Shahla Person MD Primary Care Provide r Reason for Visit * Reason Onset Date Comments Chart Prep 08/12/2024 Encounter Details Date Type Department Care Team ([facility] st Contact Info) Description 08/12/[address] [facility] [address] [place] [address] [phone] Shahla Person MD [address] [place], [place] [phone] Chart Prep Social History Tobacco Use Types Packs/Day Years [...] AM EDT documented as of this encounter Miscellaneous Notes * Telephone Encounter - Maryam Barcenas [place] - 08/12/2024 3:40 PM EDT Chart Prep Labs: done Images: not applicable Referrals: complete Vaccines due: yes Screenings: not applicable Overdue care gaps: SBIRT, PHQ-9, SONA-7, and Disability screen documented in this encounter Plan of Treatment Upcoming Encounters Date Type Department Care Team (Late st Contact Info) Description 08/24/2024 10:00 AM EDT Office Visit [facility] [address] [place], [place] [phone] Luis, Elizabeth, OD [address] [place] [address] documented as of this encounter Visit Diagnoses Not on filedocumented in this encounter Additional Health Concerns Assessment Noted Time PHQ-9 Depression Total Score: 0 05/02/19 24 1:31 PM EST documented as of this encounter Care Teams Driver Lifter Of Sanitation Truck Relationship Specialty Start Date End Date Shahla Person MD [address] [place] [address] PCP - General Family Medicine 12/12/18 documented as of this encounter
--- OUTSIDE RECORDS SUMMARY | 2024-08-14 12:57 | XMS_ITS | Encounter Summary ---
Author Organization [facility] Address [address] [place] [address] Care Team Providers Care Disulfurizer Tender Name Role Phone Kimberly Grant DO Primary Care Pro vider Unavailable Shahla Calvert MD Primary Care Provide r Unavailable Encounter Details Date Type Department Care Team Description 03/08/2018 Release of Information Medical Records [address] [place] [id number] Abstract, Provider Social History Tobacco Use Types [...] on filedocumented in this encounter Care Teams Disulfurizer Tender Relationship Specialty Start Date End Date Kimberly Grant DO PCP - General Internal Medicine 07/12/15 03/28/20 Shahla Calvert MD PCP - General Internal Medicine 03/29/20 documented as of this encounter
--- OUTSIDE RECORDS SUMMARY | 2024-08-14 12:57 | XMS_ITS | Encounter Summary ---
Author Organization [facility] Address [address] [place] [address] Care Team Providers Care C Architect Name Role Phone Kimberly Grant DO Primary Care Pro vider Unavailable Shahla Calvert MD Primary Care Provide r Unavailable Reason for Visit * Reason Onset Date Comments Transfer Records 07/14/2015 OBGYN RECORDS R EQUEST FROM [facility] Encounter Details Date Type Department Care Team Description 07/14/2015 Telephone OBGYN - [address] [address] Rain Marin I., CAREY Transfer Records (OBGYN RECORDS REQUEST FROM [facility]) Social History Tobacco Use Types Packs/Day Years Used Date Smoking Tobacco: Never Smokeless Tobacco: Never Alcohol Use Standard Drinks/Week Comments No 0 (1 standard drink = 0.6 oz pur e alcohol) Sex Assigned at Date Recorded Female 09/11/2021 8:06 AM E DT documented as of this encounter Miscellaneous Notes * Telephone Encounter - Sofia Villanueva - 08/05/2015 8:55 AM EDT Records received and with carolina * Telephone Encounter - Sofia Villanueva - 07/14/2015 4:16 PM EDT OBGYN records requested from [facility] on 07/14/15. documented in this encounter Plan of Treatment Not on file documented as of this encounter Visit Diagnoses Not on filedocumented in this encounter Care Teams C Architect Relationship Specialty Start Date End Date Kimberly Grant DO PCP - General Internal Medicine 07/12/15 03/28/20 Shahla Calvert MD PCP - General Internal Medicine 03/29/20 documented as of this encounter
--- OUTSIDE RECORDS SUMMARY | 2024-08-14 12:57 | XMS_ITS | Encounter Summary ---
Author Organization [employer] Address [address] [facility] 7t [place] [address] Care Team Providers Care Medical Affairs Director Name Role Phone Shahla Person MD Primary Care Provide r Encounter Details Date Type Department Care Team (Late Contact Info) Description 06/26/2022 Orders Only [facility] [address] [place], [place] [phone] Nella Haines MD [address] [place] [address] Mixed conductive and sensorineural hearing loss of both ears (Primary Dx) Social History Tobacco Use Types Packs/Day Years Used Date Smoking Tobacco: Never Smokeless Tobacco: Never PHQ-2 Answer Date Recorded Patient Health Questionnaire-2 Score 0 03/26/2022 Depression Answer Date Recorded Patient Health Questionnaire-2 Score 0 03/26/2022 Comments Unknown Sex and Gender Information Value Date Recorded Sex Assigned at Female 02/19/2022 10:31 AM EDT Legal Sex Female 10:31 AM EDT Gender Identity Female 02/19/2022 10:31 AM EDT Sexual Orientation Straight 02/19/2022 10 :31 AM EDT COVID-19 Exposure Response Date Recorded In the last 10 days, have yo u been in contact with someone who was confirmed or suspected to have Coronavirus/COVID-19? No / Unsure 06/27/2022 4:10 PM EST documented as of this encounter Plan of Treatment Upcoming Encounters Date Type Department Care Team (Late Contact Info) Description 08/24/2024 10:00 AM EDT Office Visit [facility] [address] [place] [address] Elizabeth Smith OD [address] [place] [address] documented as of this encounter Procedures Procedure Name Priority Date/Time Associated Diagnosis Comments URINALYSIS WITH REFLEX MICROSCOPIC Routine 07/09/2022 4:15 AM EDT Mixed conductive and sensorineural hearing loss of both ears CBC WITH AUTO DIFFERENTIAL Routine 07/09/2022 1:14 AM EDT Mixed conductive and sensorineural hearing loss of both ears LIPASE Routine 07/09/2022 1:14 AM EDT Mixed conductive and sensorineural hearing loss of both ears HEPATIC FUNCTION PANEL Routine 07/09/2022 1:14 AM EDT Mixed conductive and sensorineural hearing loss of both ears BASIC METABOLIC PANEL Routine 07/09/2022 1:14 AM EDT Mixed conductive and sensorineural hearing loss of both ears documented in this encounter Results * Urinalysis with reflex microscopic (07/09/2022 4:15 AM EDT) Color Urine Yellow [facility] Appearance Urine Clear [facility] PH 6.5 5.0 - 9.0 [facility] Glucose Urine UA Negative Negative mg/dL [facility] Urine Blood Negative Negative [facility] Specific [place] - Urine <=1.005 1.005 - 1.025 [facility] Urine Protein Negative Neg-Trace mg/dL [facility] Urine Ketones Negative Negative mg/dL [facility] Nitrite Urine Negative Negative [facility] Leukocyte Esterase Urine Negative Negative [facility] 07/09/2022 4:15 AM EDT 07/09/2022 4:30 AM EDT Narrative [facility] - 07/09/2022 4:33 AM EDT [id number], Clean Catch us [facility] External Provider LAB URI NE ORDERABLES Final Result Performing Organization Address City/[facility]/ZIP Co de Phone Number [facility] [address] [place] [address] [phone] * Lipase (07/09/2022 1:14 AM EDT) Lipase 22 8 - 78 U/L [facility] 07/09/2022 1:14 AM EDT 07/09/2022 1:17 AM EDT [facility] External Provider LAB BLO OD ORDERABLES Final Result Performing Organization Address [facility] Co de Phone Number [facility] [address] [place] [address] [phone] * (ABNORMAL) Basic Metabolic Panel (07/09/2022 1:14 AM EDT) Sodium 138 135 - 145 mmol/L [facility] Potassium 3.9 3.3 - 5.1 mmol/L [facility] Chloride 104 96 - 108 mmol/L [facility] Carbon Dioxide 26 22 - 29 mmol/L [facility] Anion Gap 12 12 - 20 [facility] Urea Nitrogen (BUN) 8(L) 9 - 16 mg/dL [facility] Creatinine, Serum 0.81 0.5 - 1.4 mg/dL [facility] Creatinine Clr Calc Pharmacy 89.3 [facility] Comment:Provided height and weight: 144.78 cm,82.554 kg.eGFR (calculated from the MDRD study equation) and eCrCl(calculated from the Cockcroft-Gault equation) are based ondifferent parameters and may not yield comparable results.If eCrCl result is absurd, please check patient'sheight/weight. Estimated Glomerular Filt Rate >60 [facility] Comment:NOTE: For -Am erican individuals, multiply the result by 1.210.Chronic Kidney Disease: Estimated GFR < 60 mL/min/1.86e0Ymnjqr Kidney Disease: Estimated GFR < 15 mL/min/1.73m2 Glucose 109 60 - 115 mg/dL [facility] Calcium 8.9 8.4 - 10.2 mg/dL [facility] 07/09/2022 1:14 AM EDT 07/09/2022 1:17 AM EDT [facility] External Provider LAB BLO OD ORDERABLES Final Result Performing Organization Address [facility] Co de Phone Number [facility] [address] [place] [address] [phone] * (ABNORMAL) Hepatic Function Panel (07/09/2022 1:14 AM EDT) Bilirubin, Total 1.7(H) 0.0 - 1.0 mg/dL [facility] Bilirubin, Direct 0.8(H) 0.0 - 0.5 mg/dL [facility] Aspartate Amino Transferase 346(H) 5 - 31 U/L [facility] Alanine Aminotransferase 229(H) 0 - 31 U/L [facility] Total Protein 6.6 6.5 - 8.0 g/dL [facility] Albumin Level 4.0 3.5 - 5.0 g/dL [facility] Alkaline Phosphatase 112 39 - 117 U/L [facility] 07/09/2022 1:14 AM EDT 07/09/2022 1:17 AM EDT [facility] External Provider LAB BLO OD ORDERABLES Final Result Performing Organization Address [facility] Co de Phone Number [facility] [address] [place] [address] [phone] * (ABNORMAL) CBC auto differential (07/09/2022 1:14 AM EDT) White Blood Count 10.1 4.8 - 10.8 X10*3/uL [facility] Red Blood Count 4.41 4.20 - 5.50 X10*6/uL [facility] Hemoglobin 13.7 12.0 - 16.0 g/dl [facility] Hematocrit 41.0 37.0 - 47.0 % [facility] Mean Corpuscular Volume 93.0 80.0 - 98.0 fL [facility] Mean Corpuscular Hemoglobin 31.1 27.0 - 33.0 pg [facility] Mean Corpuscular HGB Conc 33.4 31.0 - 35.0 g/dl [facility] Red Cell Distribution Width 12.6 11.0 - 16.0 % [facility] Platelet Count 225 160 - 400 X10*3/uL [facility] Mean Platelet Volume 10.1 9.4 - 12.3 fL [facility] Neutrophils Percent Auto 77.1(H) 45 - 73 % [facility] Imm Gran Pct Auto 0.2 0.0 - 0.4 % [facility] Lymphocytes Percent Auto 12.5(L) 20 - 40 % [facility] Monocytes Percent Auto 8.3 2 - 11 % [facility] Eosinophils Percent Auto 1.4 0 - 4 % [facility] Basophils Percent Auto 0.5 0 - 2 % [facility] NRBC Pct Auto 0.0 0.0 - 0.2 /100WBC [facility] Neutrophils Absolute Auto 7.8 2.0 - 8.3 x10*3/uL [facility] Imm Gran Abs Auto 0.02 0.00 - 0.03 X10*3/uL [facility] Lymphocytes Absolute Auto 1.3 1.2 - 4.9 X10*3/uL [facility] Monocytes Absolute Auto 0.8 0.1 - 1.2 X10*3/uL [facility] Eosinophils Absolute Auto 0.1 0.0 - 0.4 X10*3/uL [facility] Basophils Absolute Auto 0.1 0.0 - 0.2 X10*3/uL [facility] NRBC Abs Auto 0.000 0.0 - 0.012 X10*3/uL [facility] 07/09/2022 1:14 AM EDT 07/09/2022 1:17 AM EDT [facility] External Provider LAB BLO OD ORDERABLES Final Result [facility] [address] [place] [address] [phone] documented in this encounter Visit Diagnoses Diagnosis Mixed conductive and sensorineural hearing loss of both ears- Primary documented in this encounter Care Teams Medical Affairs Director Relationship Specialty Start Date End Date Shahla Person MD [address] [place] [phone] PCP - General Family Medicine 12/12/18 documented as of this encounter
--- OUTSIDE RECORDS SUMMARY | 2024-08-14 12:57 | XMS_ITS | Clinical Summary ---
Author Organization [facility] Address [address] [place] [address] Care Team Providers Care Finance Controller Name Role Phone Shahla Calvert MD Primary Care Provide r Unavailable Allergies Active Allergy Reactions Severity Noted Date Comments Augmentin Anaphylaxis,Hives/Urticaria 07/12/19 16 Medications Medication Sig Dispensed Refills Start Date End Date Status Meclizine HCl 25 MG TabIndications:Dec reased hearing, right,Tinnitus, right,Allergic rhinitis, unspecified allergic rhinitis type Take 1 Tab by mouth 3 times daily as needed (dizziness). 45 Tab 0 10/06/2015 Active cetirizine (ZYRTEC) 10 MG tablet Take 1 Tab by mouth daily. 30 Tab 2 10/06/2015 Active fluticasone (FLONASE) 50 MCG/ACT nasal spray 2 Sprays by Nasal route daily. 1 Bottle 1 04/06/2016 Active ALBUTEROL SULFATE (PROAIR HFA) 108 (90 BASE) MCG/ACT Aero Soln Take 2 Puffs by mouth every 4 hours as needed for Cough or Wheezing. 8.5 Inhaler 1 04/06/2016 Active celecoxib (CELEBREX) 200 MG capsule TAKE 1 CAPSULE BY MOUTH TWICE DAILY WITH FOOD NEEDED FOR PAIN. AVOID OTHER NSAIDs. 0 02/05/2022 Active drospirenone-ethin yl estradiol (FERNANDO) 3-0.03 MG per tablet Take 1 Tablet by mouth daily. 0 02/19/2022 Active simethicone (MYLICON) 80 MG chewable tablet Take 1 Tablet by mouth every 6 hours as needed for Flatulence for up to 30 days. 120 Tablet 1 10/16/2022 Active acetaminophen (TYLENOL) 500 MG tablet Take 2 Tablets by mouth every 8 hours for 30 days. 180 Tablet 0 10/16/2022 Active ursodiol (Actigall) 300 MG capsule Take 2 Capsules by mouth daily for 180 days. 60 Capsule 5 10/16/2022 Active pantoprazole (PROTONIX) 40 MG tablet Take 1 Tablet by mouth daily for 90 days. 30 Tablet 2 10/16/2022 Active Wheat Dextrin (Benefiber) Powder Take 4 g by mouth daily. 120 g 0 10/16/2022 Active polyethylene glycol (MiraLax) 17 g packet Take 1 Packet by mouth daily as needed for Constipation for up to 14 days. 14 Each 0 10/16/2022 Active ondansetron (Zofran) 4 MG tablet Take 1 Tablet by mouth every 8 hours as needed for Nausea for up to 7 days. 21 Tablet 0 10/16/2022 Active Active Problems Problem Noted Date Class 3 severe obesity due t o excess calories with body mass index (BMI) of 40.0 to 44.9 in adult 01/10/2022 Anxiety 04/25/2016 Asthma in adult 07/12/2015 Immunizations Name Administration Dates Next Due Influenza (> 6 Months) 03/20/2016 PPD-RBMG 07/12/2015 Family History Medical History Relation Name Comments CABG Maternal Grandmother Cancer, Other Mother brain? age 21. and Stroke Paternal Grandfather Diabetes Paternal Grandmother cva CA Breast Negative Hx CA Colon Negative Hx CA Ovarian Negative Hx Relation Name Status Comments Maternal Grandmother Mother Paternal Grandfather Paternal Grandmother Social History Tobacco Use Types Packs/Day Years Used Date Smoking Tobacco: Never Smokeless Tobacco: Never Alcohol Use Standard Drinks/Week Comments No 0 (1 standard drink = 0.6 oz pur e alcohol) Sex Assigned at Date Recorded Female 09/11/2021 8:06 AM E DT Last Filed Vital Signs Vital Sign Reading Time Taken Comments Blood Pressure 117/88 03/27/2022 1:49 PM EST Pulse 132 03/27/2022 1:49 PM EST Temperature 36.7 ??C (98.1 ??F) 09/12/2021 3:36 PM ED T Respiratory Rate 14 04/25/2016 9:20 AM EST Oxygen Saturation 99% 10/12/2015 10:53 AM EDT Inhaled Oxygen Concentration - - Weight 85.3 kg (188 lb) 05/14/2022 10:11 AM EST Height 144.8 cm (4' 9 ) 03/27/2022 1:49 PM EST Body Mass Index 40.68 03/27/2022 1:49 PM EST Plan of Treatment Health Maintenance Due Date Last Done Comments PNEUMOCOCCAL VACCINE FOR HIG H RISK PATIENTS (#1) 2010 CERVICAL CANCER SCREENING 07/31/2018 08/01/2015 BASELINE HEALTH EXAM 18-39 07/11/2020 07/12/2015, CHOLESTEROL SCREENING 07/11/2020 07/12/2015 Covid-19 Vaccine (2022-2 4 season) 2023 11/30/2021, 06/02/2020, 05/05/2020 BMI CHECK/ADVISE 04/22/2024 03/27/2022, , 03/20/2016, Additional history exists DEPRESSION SCREENING/FOLLOWUP 04/22/2024 04/06/2016 SOCIAL NEEDS SCREENING 04/22/2024 INFLUENZA (Season Ended) 2024 022, 01/05/2021, 01/06/2020, Additional history exists DTAP/TDAP/TD (2 - Td or Tdap) 10/12/2026 10/12/2016 Care Teams Finance Controller Relationship Specialty Start Date End Date Shahla Calvert MD PCP - General Internal Medicine 03/29/20
--- OUTSIDE RECORDS SUMMARY | 2024-08-14 12:57 | XMS_ITS | Clinical Summary ---
Author Organization [facility] Address [address] [place] [address] Care Team Providers Care Mingler Operator Name Role Phone Shahla Person MD Primary Care Provide r Surgical History Surgery Date Site/Laterality Comments SECTION 2013 PROCEDURE: HISTORICAL DELIVERY Medical History Medical History Date Comments Asthma DX:Asthma Medical history non-contributory DX:Medical history non-contributory; COMMENT: Medical records recieved 08/07 IUD (intrauterine device) in place 08/26/15 DX:IUD (intrauterine device) in place; COMMENT: Mirena Hearing impairment DX:Hearing im pairment PCOS (polycystic ovarian syndrome) DX:PCOS (polycystic ovarian syndrome) Hyperandrogenism DX:Hyperandroge nism Perianal venereal warts DX:Peria nal venereal warts Family History Medical History Relation Name Comments CABG Maternal Grandmother Other cancer Mother brain? age 21. and Stroke Paternal Grandfather Diabetes Paternal Grandmother cva Breast cancer Neg Hx Colon cancer Neg Hx Ovarian cancer Neg Hx Relation Name Status Comments Maternal Grandmother Mother Paternal Grandfather Paternal Grandmother Social History Tobacco Use Types Packs/Day Years Used Date Smoking Tobacco: Never Smokeless Tobacco: Never Alcohol Use Standard Drinks/Week Comments No 0 (1 standard drink = 0.6 oz pur e alcohol) Comments Unknown Sex and Gender Information Value Date Recorded Sex Assigned at Not on file Legal Sex Female 5:36 AM EST Gender Identity Not on file Sexual Orientation Not on file Obstetrics History Last Filed Vital Signs Vital Sign Reading Time Taken Comments Blood Pressure 117/88 03/27/2022 1:49 PM EST Pulse 132 03/27/2022 1:49 PM EST Temperature - - Respiratory Rate - - Oxygen Saturation - - Inhaled Oxygen Concentration - - Weight 85.3 kg (188 lb) 05/14/2022 10:11 AM EST Height 144.8 cm (4' 9 ) 03/27/2022 1:49 PM EST Body Mass Index 40.68 03/27/2022 1:49 PM EST Plan of Treatment Health Maintenance Due Date Last Done Comments DTaP,Tdap,and Td Vaccines (1 - Tdap) 2010 Hepatitis B Vaccines (1 of 3 - 19+ 3-dose series) 2010 Pneumococcal Vaccine: Pediat rics (0 to 5 Years) and At-Risk Patients (6 to 64 Years) (1 of 2 - PCV) 2010 Cervical Cancer Screening: P ap Smear 2012 Depression Screening 03/25/2022 HIV Screening 03/25/2022 Hepatitis C Screening 03/25/2022 Social Influencers of Health Screening 03/25/2022 COVID-19 Vaccine ( - 2023-2 5 season) 2023 Influenza Vaccine (Season Ended) 2024 03/20/20 16 HIB Vaccines Aged Out No longer eligi [...] on patient's age to complete this topic MMR Vaccines Aged Out No longer eligi ble based on patient's age to complete this topic Meningococcal ACWY Vaccine Aged Out N o longer eligible based on patient's age to complete this topic Meningococcal B Vaccine Aged Out No l onger eligible based on patient's age to complete this topic RSV Immunization Patients Un federico 20 months Aged Out No longer eligible b ased on patient's age to complete this topic Varicella Vaccines Aged Out No longer eligible based on patient's age to complete this topic Care Teams Mingler Operator Relationship Specialty Start Date End Date Shahla Person MD [address] [place] [phone] PCP - General Internal Medicine 03/29/20
== END 2024-08-14 12:08 | disposition home or self-care (01) ==
LOC: HO.HAP 12:07
PROVIDERS: Visit Provider Internal Medicine
DX: Z46.1 Encounter for fitting and adjustment of hearing aid (principal); H90.3 Sensorineural hearing loss, bilateral; R42 Dizziness and giddiness
CPT/HCPCS: V5266

== ENCOUNTER 2024-10-16 12:58 | Outpatient (REF) | payer MEDICAID, SELFPAY ==
--- OUTSIDE RECORDS SUMMARY | 2024-10-16 13:34 | XMS_ITS | Data Portability ---
Author Organization [place] - [facility], Allergy Address [address] [place] [id number] Care Team Providers Care Supervisor Of Communications Name Role Phone PRICELARRY MANUELA CROCKETT Primary Care Provider [phone] Assessment No assessment recorded. Plan of Treatment [...] ation record ed. [email or web address] Not Available 22:57:54 08/01/22/2019 imagi ng/di agnos tic resul t No observ ation record ed. [email or web address] Not Available 22:58:11 12/10/1901/22/2019 audio gram No observ ation record ed. [email or web address] Not Available 22:58:12 12/10/19 24 01/22/2023 imagi ng/di agnos tic resul t No observ ation record ed. [email or web address] Not Available 22:58:27 Result Notes None recorded. Problems Name Problem SNOMED Code Status Onset Date Resolution Date Notes Provider Name and Address Organization Details Recorded Time Refractor y migraine 193803827 Active 2022 Other migraine, intractab le, without status migrainos us; Note: Date Diagnosed : 01/22/2023 12:53 PM (G43.819) Not Available [facility] 4 02:14:49 Bilateral earache 298546520 Active 2018 Otalgia, bilateral ; Note: Date Diagnosed : 11/05/2018 12:04 PM (H92.03) Not Available [facility] 4 02:13:19 Dizziness and giddiness 855037327 Active 2016 Dizziness and giddiness ; Note: Date Diagnosed : 7 12:17 PM (R42) Not Available [facility] 4 02:14:00 Tinnitus of right ear 97459767116 08 Active 2015 Tinnitus, right ear; Note: Date Diagnosed : 10/31/2015 12:30 PM (H93.11) Not Available [facility] 4 02:14:35 Sensorine ural hearing loss of bilateral ears 550143220 Active 2018 Sensorine ural hearing loss, bilateral ; Note: Date Diagnosed : 01/22/2019 12:31 PM (H90.3) Not Available [facility] 4 02:14:38 Vertigo of central origin 72571258 Active 2022 Vertigo of central origin; Note: Date Diagnosed : 01/22/2023 12:53 PM (H81.4) Not Available [facility] 4 02:13:24 Headache 20812545 Active 2016 Headache; Note: Date Diagnosed : 7 12:39 PM (R51) Not Available [facility] 4 02:14:11 Allergic rhinitis 15548225 Active 2018 Other allergic rhinitis; Note: Date Diagnosed : 01/22/2019 12:51 PM (J30.89) Not Available [facility] 4 02:13:31 Sensorine ural hearing loss 43319886 Active 2015 Sensorine ural hearing loss, unilatera l, right ear, with unrestric jazmyn hearing on the contralat eral side; Note: Date Diagnosed : 10/31/2015 12:30 PM (H90.41) Not Available [facility] 4 02:13:08 Abnormal auditory perceptio n 13775077 Active 2018 Other abnormal auditory perceptio ns, bilateral ; Note: Date Diagnosed : 11/05/2018 12:04 PM (H93.293) Not Available [facility] 4 02:14:50 Problem Notes None recorded. Procedures Surgical History Date Name Laterality Status Provider Name and Address Organization Details Recorded Time 10/31/19 24 Air only Audio - 07224 completed Manuela Bray [place] - [facility] 10/31/2023 16:40:20 10/31/19 24 Tympanometry - 76724 completed Manuela Bray MA [facility] 10/31/2023 16:40:30 10/31/19 24 SRT & Speech Recognition - 40963 completed Manuela Bray MA [facility] 10/31/2023 16:40:23 section completed Emerald Goodson [facility] 10/31/2023 15:55:09 Imaging Results None recorded. Procedure Notes None recorded. Medical Equipment None Reported. Allergies Allergen ID Allergen Name Allergen Category Reaction Reaction Severity Criticality Documentation Date Start Date Code Code System Note Provider Name and Address Organization Details Recorded Time 70142 amoxicill in / clavulana te medicatio n other Not available Not available 09/03/2023 RxNorm React ion: unkno wn, unspe cifie d;; Not Available [facility] 4 00:51:08 Medications Name Sig Start Date Stop Date Status Note LastModified by Organization Details LastModified Time cyclobenz aprine 10 mg tablet 01/22 completed Medicati on ID: [id number] B rand Name: vandana allen Send Method: E-Prescr ibed Sub s Allowed: subs [place] Speci al Instruct ion: TAKE 1 TABLET EVERY 8 HOURS NEEDED FOR MUSCLE SPASMS M edpadminitiiron nGeneric Name: vandana allen Not Available Not Available Not Available Mirena 21 mcg/24 hr (up to 8 years) 52 mg intrauter ine device 01/22 completed Medicati on ID: [id number] D uration Value: 30 Brand Name: Mirena S end Method: E-Prescr ibed Sub s Allowed: subs MICHAEL Good al Instruct ion: FOR [facility] Medicat ionGener icName: Mirena Not Available Not Available Not Available metformin 500 mg tablet TAKE 1 TABLET BY MOUTH TWICE DAILY WITH BREAKFAS T AND EVENING MEAL active Not Available Not Available No t Available cyanocoba irina (vit B-12) ER 1,000 mcg tablet,ex tended release 01/22 completed Medicati on ID: [id number] B rand Name: cyanocob alamin (vitamin B-12) Se nd Method: E-Prescr ibed Sub s Allowed: subs OK Sarahi al Instruct ion: TAKE 1 TABLET BY MOUTH EVERY DAY Medi cationGe nericNam e: cyanocob alamin (vitamin B-12) Not Available Not Available Not Available prednison e 10 mg tablet 01/22 completed Medicati on ID: [id number] Leon marsh By Name: MELONY Seals nd Name: predniso ne Send Method: E-Prescr ibed Sub s Allowed: subs [place] Sarahi al Instruct ion: 6 tabs daily for 9 days then taper to 5 tablets at once day 10, 4 tablets at once day 11, 3 tablets at once day 12, 2 tablets at once day 13, one tablet day 14 Medic ationGen ericName : predniso ne Not Available Not Available Not Available doxycycli ne hyclate 100 mg capsule 01/22 completed Medicati on ID: [id number] B rand Name: doxycycl ine hyclate Send Method: E-Prescr ibed Sub s Allowed: subs [place] Medic ationGen ericName : doxycycl ine hyclate Not Available Not Available Not Available clindamyc in HCl 300 mg capsule 10/30 completed Not Available Not Available Not Available cetirizin e 10 mg tablet active Medicati on ID: [id number] B rand Name: cetirizi ne Send Method: E-Prescr ibed Sub s Allowed: subs [place] Speci al Instruct ion: TAKE 1 TABLET BY MOUTH EVERY DAY Medi cationGe nericNam e: cetirizi ne Not Available Not Available Not Available azithromy antonietta 250 mg tablet 01/22 completed Medicati on ID: [id number] B rand Name: azithrom ycin Sen d Method: E-Prescr ibed Sub s Allowed: subs [place] Medic ationGen ericName : azithrom ycin Not Available Not Available Not Available ibuprofen 800 mg tablet 01/22 completed Medicati on ID: [id number] B rand Name: ibuprofe n Send Method: E-Prescr ibed Sub s Allowed: subs [place] Medic ationGen ericName : ibuprofe n Not Available Not Available Not Available fluconazo le 150 mg tablet TAKE 1 TABLET BY MOUTH ONCE DAILY IN THE MORNING FOR 1 DOSE 10/30 completed Not Available Not Available Not Available benzonata te 200 mg capsule 01/22 completed Medicati on ID: [id number] B rand Name: benzonat ate Send Method: E-Prescr ibed Sub s Allowed: subs [place] Speci al Instruct ion: TAKE 1 CAPSULE BY MOUTH THREE TIMES DAILY NEEDED FOR COUGH Me dication GenericN melva: benzonat ate Not Available Not Available Not Available clarithro mycin 500 mg tablet 01/22 completed Medicati on ID: [id number] B rand Name: clarithr omycin S end Method: E-Prescr ibed Sub s Allowed: subs [place] Medic ationGen ericName : clarithr omycin Not Available Not Available Not Available prednison e 20 mg tablet 01/22 completed Medicati on ID: [id number] B rand Name: predniso ne Send Method: E-Prescr ibed Sub s Allowed: subs [place] Speci al Instruct ion: TAKE 2 TABLETS BY MOUTH EVERY DAY Medi cationGe nericNam e: predniso ne Not Available Not Available Not Available spironola ctone 100 mg tablet 01/22 completed Medicati on ID: [id number] B rand Name: spironol actone S end Method: E-Prescr ibed Sub s Allowed: subs MICHAEL Good al Instruct ion: TAKE 1 TABLET BY [...] mg tablet 01/22 completed Medicati on ID: [id number] D uration Value: 7 Brand Name: doxycycl ine monohydr ate Send Method: E-Prescr ibed Sub s Allowed: subs MICHAEL moffett Instruct ion: TAKE 1 TABLET TWICE DAILY [...] mg tablet 01/22 completed Medicati on ID: [id number] B rand Name: Sudogest Send Method: E-Prescr ibed Sub s Allowed: subs OK Medic ationGen ericName : Sudogest Not Available Not Available Not Available citalopra m 20 mg tablet 01/22 completed Medicati on ID: [id number] B rand Name: citalopr am Send Method: E-Prescr ibed Sub s Allowed: subs MICHAEL Good al Instruct ion: TAKE 1 TABLET BY MOUTH EVERY DAY Medi cationGe nericNam e: citalopr am Not Available Not Available Not Available meclizine 25 mg tablet active Medicati on ID: [id number] B rand Name: meclizin e Send Method: E-Prescr ibed Sub s Allowed: subs MICHAEL Good al Instruct ion: TAKE 1 TABLET BY MOUTH THREE TIMES DAILY NEEDED FOR DIZZINES S Medica tionGene ricName: meclizin e Not Available Not Available Not Available pyridoxin e (vitamin B6) 50 mg tablet TAKE 1 TABLET BY MOUTH THREE TIMES DAILY AFTER MEALS 10/30 completed Not Available Not Available Not Available Banophen 25 mg capsule 01/22 completed Medicati on ID: [id number] B rand Name: Banophen Send Method: E-Prescr ibed Sub s Allowed: subs [place] Speci al Instruct ion: TAKE 1 CAPSULE AT BEDTIME Medicati onGeneri cName: Banophen Not Available Not Available Not Available zinc 50 mg tablet 01/22 completed Medicati on ID: [id number] B rand Name: Chelated Zinc Sen d Method: E-Prescr ibed Sub s Allowed: subs [place] Speci al Instruct ion: TAKE 1 TABLET EVERY DAY Medi cationGe nericNam e: Chelated Zinc Not Available Not Available Not Available prednisol one 15 mg/5 mL oral solution 01/22 completed Medicati on ID: [id number] B rand Name: predniso lone Sen d [...] as directed 01/22 completed Medicati on ID: [id number] P bobby d By Name: MELONY Beckford nd Name: azelasti ne Send Method: E-Prescr ibed Sub s Allowed: subs OK Medic ationGen ericName : azelasti ne Not Available Not Available Not Available ibuprofen 600 mg tablet 01/22 completed Medicati on ID: [id number] B rand Name: ibuprofe n Send Method: E-Prescr ibed Sub s Allowed: subs [place] Speci al Instruct ion: TAKE 1 TABLET EVERY 8 HOURS NEEDED FOR PAIN Med icationG enericNa me: ibuprofe n Not Available Not Available Not Available albuterol sulfate HFA 90 mcg/actua tion aerosol inhaler active Medicati on ID: [id number] B rand Name: albutero l sulfate Send Method: E-Prescr ibed Sub s Allowed: subs OK Medic ationGen ericName : albutero l sulfate Not Available Not Available Not Available ipratropi um bromide 42 mcg (0.06 %) nasal spray 01/22 completed Medicati on ID: [id number] B rand Name: ipratrop ium bromide Send [...] 0.03 mg tablet active Medicati on ID: [id number] B rand Name: drospire none-eth inyl estradio l Send Method: E-Prescr ibed Sub s Allowed: subs OK Medic ationGen ericName : drospire none-eth inyl estradio l Not Available Not Available Not Available doxycycli ne hyclate 100 mg tablet 01/22 completed Medicati on ID: [id number] B rand Name: doxycycl ine hyclate Send Method: E-Prescr ibed Sub s Allowed: subs [place] Speci al Instruct ion: TAKE 1 TABLET BY MOUTH TWICE DAILY UNTIL FINISHED Medicat ionGener icName: doxycycl ine hyclate Not Available Not Available Not Available loratadin e 10 mg tablet 01/22 completed Medicati on ID: [id number] D uration Value: 30 Brand Name: loratadi ne Send Method: E-Prescr ibed Sub s Allowed: subs [place] Speci al Instruct ion: TAKE 1 TAB BY MOUTH DAILY. M jake Almonteic Name: loratadi ne Not Available Not Available Not Available NuvaRing 0.12 mg-0.015 mg/24 hr vaginal 01/22 completed Medicati on ID: [id number] B rand Name: NuvaRing Send Method: E-Prescr ibed Sub s Allowed: subs OK Speci al Instruct ion: INSERT 1 RING VAGINALL Y, LEAVE IN FOR THREE WEEKS THEN REMOVE M edicatio nGeneric Name: NuvaRing Not Available Not Available Not Available Flovent HFA 110 mcg/actua tion aerosol inhaler 01/22 completed Medicati on ID: [id number] D uration Value: 30 Brand Name: Flovent HFA Send Method: E-Prescr ibed Sub s Allowed: subs [place] Speci al Instruct ion: INHALE 1 PUFF BY MOUTH TWICE DAILY FOR 2 WEEKS Me dication GenericN melva: Flovent HFA Not Available Not Available Not Available fluocinol one 0.01 % scalp oil and shower cap 01/22 completed Medicati on ID: [id number] B rand Name: fluocino lone and shower cap Send Method: E-Prescr ibed Sub s Allowed: subs [place] Speci al Instruct ion: APPLY SPARINGL Y TO SCALP masajee abby y cubra. dejelo puesto por 4 horas o de kenzie noche al otro akira luego enjuague . Medica tionGene ricName: fluocino lone and shower cap Not Available Not Available Not Available Brettafen DM 01/22 completed Medicati on ID: [id number] D uration Value: 3 Brand Name: Robafen DM Send Method: E-Prescr ibed Sub s Allowed: subs [place] Speci al Instruct ion: TAKE TWO TEASPOON FUL BY MOUTH EVERY 4 HOURS NEEDED M edicatio nGeneric Name: Robafen DM Not Available Not Available Not Available ProAir HFA 01/22 completed Medicati on ID: [id number] D uration Value: 17 Brand Name: ProAir HFA Send Method: E-Prescr ibed Sub s Allowed: subs [place] Speci al Instruct ion: TAKE 2 PUFFS EVERY 4 HOURS NEEDED FOR COUGHING OR WHEEZING Medicat ionGener icName: ProAir HFA Not Available Not Available Not Available Sudogest 12-hour 120 mg tablet,ex tended release 01/22 completed Medicati on ID: [id number] B rand Name: Sudogest 12-hour Send Method: E-Prescr ibed Sub s Allowed: subs [place] Speci al Instruct ion: TAKE 1 TABLET BY MOUTH EVERY TWELVE HOURS Me dication GenericN melva: Sudogest 12-hour Not Available Not Available Not Available Vitamin D3 50 mcg (2,000 unit) capsule 01/22 completed Medicati on ID: [id number] B rand Name: Vitamin D3 Send Method: [...] activated powdr 01/22 completed Medicati on ID: [id number] B rand Name: fluticas one propion- salmeter [...] Note [id number] KIP ROSS MD [facility] [address] [place] [phone] 10/31/2023 15:25:11 10/31/2023 17:01:13 Refractory migraine [id number] G43.819 Patient's migraine symptoms appear to be much better controlled with identifica tion and eliminatio n of dietary triggers such as caffeine and dehydratio n. I recommende d she continue on this pathway. At this point there is no considerat ion for pharmacolo gic interventi on in light of the fact that she is currently . Vertigo of central origin [id number] H81.4 Sensorineu ral hearing loss of bilateral ears 373078668 H90.3 Audiologic al evaluation results:Ri ght ear:Modera tely-sever e raising to a moderate sensorineu ral hearing loss with poor word recognitio n.Left ear:Modera tely-sever e sensorineu ral hearing loss with excellent word recognitio n. Tympanomet ry:Right Ear:Type ALeft Ear:Type A This patient was provided a copy of her audiogram to bring back to her audiologis t at [facility] audiology. Her speech discrimina tion is [...] Recorded Advance Directives Directive None Recorded Payers Insurance Date Sequence Insurance Name Policy Number Policy Sanchez Covered Member ID Sanchez Member ID Guarantor Name 06/12/2024 1 [place] [facility] [place]ov[place] [id number] Rain [place] Notes Date Note Type Note [...] She's currently using binaural amplification dispensed through [facility] audiology. She's continued to have more [...] been diagnosed with ocular migraines by her production or plant engineer. We discussed the concept of vestibular migraine [...] that she is . KIP ROSS MD [address] [place] [address], [phone], [facility] - [facility] 10/31/2023 17:33:55 OBGyn Episode No OBEpisode recorded.
== END 2024-10-16 12:59 | disposition home or self-care (01) ==
LOC: HO.HHCLNP 12:58
PROVIDERS: Visit Provider Internal Medicine
DX: M54.50 Low back pain, unspecified (principal)
CPT/HCPCS: 87086

== ENCOUNTER 2024-11-09 10:32 | Outpatient (AMB) | payer MEDICAID, SELFPAY ==
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
[2024-11-09 10:43] VITALS: BP 123/68; PULSE 85; O2SAT 97; BMI 44.9
--- OUTSIDE RECORDS SUMMARY | 2024-11-09 11:34 | XMS_ITS | Encounter Summary ---
Author Organization [employer] Address [address] [facility] [address] [place] [address] Care Team Providers Care Research Support Specialist Name Role Phone Shahla Person MD Primary Care Provide r Encounter Details Date Type Department Care Team (Late st Contact Info) Description 08/12/2024 Orders Only [facility] [address] [place], [place] [id number] Randa Meredith Social History Tobacco Use Types [...] AM EDT documented as of this encounter Functional Status * Over the past 2 weeks, how often have you been bothered by any of the following problems? Question Answer Date of Assessment Author Patient Health Questionnaire -2 Score 0 08/13/2024 3:01 PM EDT Tg Robbins MA * Little interest or pleasure in doing things Answer Date of Assessment Author Not at all 08/13/2024 3:01 PM EDT Yasemin Robbins MA * Feeling down, depressed, or hopeless Answer Date of Assessment Author Not at all 08/13/2024 3:01 PM BASHIRT Yasemin Robbins MA * Trouble falling or staying asleep, or sleeping too much Answer Date of Assessment Author Not at all 08/13/2024 3:01 PM BASHIRT Yasemin Robbins MA * Feeling tired or having little energy Answer Date of Assessment Author Not at all 08/13/2024 3:01 PM BASHIRT Yasemin Robbins MA * Poor appetite or overeating Answer Date of Assessment Author Not at all 08/13/2024 3:01 PM BASHIRT Yasemin Robbins MA * Feeling bad about yourself - or that you are a failure or have let yourself or your family down Answer Date of Assessment Author Not at all 08/13/2024 3:01 PM Yasemin Jasmine MA * Trouble concentrating on things, such as reading the newspaper or watching television Answer Date of Assessment Author Not at all 08/13/2024 3:01 PM Yasemin Jasmine MA * Moving or speaking so slowly that other people could have noticed? Or the opposite - being so fidgety or restless that you have been moving around a lot more than usual. Answer Date of Assessment Author Not at all 08/13/2024 3:01 PM EDT Yasemin Robbins MA * Thoughts that you would be better off or hurting yourself in some way Answer Date of Assessment Author Not at all 08/13/2024 3:01 PM EDT Yasemin Robbins MA * Patient Health Questionnaire-9 Score Answer Date of Assessment Author 0 08/13/2024 3:01 PM EDT Yasemin Robbins MA * Over the last 2 weeks, how often have you been bothered by any of the following problems? Question Answer Date of Assessment Author Feeling nervous, anxious, or on edge 0 08/13/2024 3:01 PM EDT Tg Robbins MA Not being able to stop or co ntrol worrying 0 08/13/2024 3:01 PM EDT Tg Robbins MA Worrying too much about diff erent things 0 08/13/2024 3:01 PM EDT Tg Robbins MA Trouble relaxing 0 08/13/2024 3:01 PM EDT Tg Kelly MA Being so restless that it is hard to sit still 0 08/13/2024 3:01 PM EDT Tg Robbins MA Becoming easily annoyed or irritable 0 08/13/2024 3:01 PM EDT Tg Robbins MA Feeling afraid as if somethi ng awful might happen 0 08/13/2024 3:01 PM EDT Tg Robbins MA SONA-7 Total Score 0 08/13/2024 3:01 PM EDT Tg Robbins MA documented as of this encounter Plan of Treatment Not on file documented as of this encounter Procedures Procedure Name Priority Date/Time Associated Diagnosis Comments PAP/HPV Routine 07/22/2024 12:00 AM EDT documented in this encounter Results * HM PAP/HPV (07/22/2024 12:00 AM EDT) Pap Smear 1. NILM 1. NILM [facility] HPV Not Detected Undetected, Indeterminat e, Quantitative , Not Detected [facility] us Historical Provider HEALTH MAINTENANCE Edited Result - Final [facility] [address] [place] [address], documented in this encounter Visit Diagnoses Not on filedocumented in this encounter Additional Health Concerns Assessment Noted Time PHQ-9 Depression Total Score: 0 05/02/19 24 1:31 PM EST documented as of this encounter Care Teams Research Support Specialist Relationship Specialty Start Date End Date Shahla Person MD [address] [place] [address] PCP - General Family Medicine 12/12/18 documented as of this encounter
--- OUTSIDE RECORDS SUMMARY | 2024-11-09 11:34 | XMS_ITS | Clinical Summary ---
Author Organization [facility] ity Address [address] [place] [address] Care Team Providers Care Enrollment Management Vice President Name Role Phone Shahla Person MD Primary [...] 5 Years) and At-Risk Patients (6 to 49 Years) (1 of 2 - PCV) 2010 Cervical Cancer Screening: P ap Smear 2012 HIV Screening 03/25/2022 Hepatitis C Screening 03/25/2022 Social Influencers of Health Screening 03/25/2022 COVID-19 Vaccine (1 - 2023-2 5 season) 2023 Depression Screening 04/22/2024 Influenza Vaccine (#1) 2024 03/20/2016 HIB Vaccines Aged Out No longer eligi [...] age to complete this topic Care Teams Enrollment Management Vice President Relationship Specialty Start Date End Date Shahla Person MD [address] [place] [phone] PCP - General Internal Medicine 03/29/20
--- OUTSIDE RECORDS SUMMARY | 2024-11-09 11:34 | XMS_ITS | Data Portability ---
Author Organization [place] [facility], Allergy Address [address] [place] [address] Care Team Providers Care Senior Devops Engineer Name Role Phone MANUELA ZACARIAS Primary Care Provider Assessment No assessment recorded. Plan of Treatment Reminders Order Date Submit Date Provider Last Modified By Organization Details Last Modified Time Details Appointments None record ed. Lab None record ed. Referral None record ed. Procedures None record ed. Surgeries None record ed. Imaging None record ed. Medication Orders None record ed. Patient TargetsNo targets recorded. Patient InstructionsNo instructions [...] ation record ed. [email or web address] Not Available 22:58:27 11/05/19 audio gram No observ ation record ed. BARCODE Not Available 2024 09:32:55 Result Notes None recorded. Problems Name Problem SNOMED Code Status Onset Date Resolution Date Notes Provider Name and Address Organization Details Recorded Time Tinnitus of right ear 50428483244 08 Active 2015 Tinnitus, right ear; Note: Date Diagnosed : 10/31/2015 12:30 PM (H93.11) Not Available [facility] 4 02:14:35 Sensorine ural hearing loss 68565310 Active 2015 Sensorine ural hearing loss, unilatera l, right ear, with unrestric jazmyn hearing on the contralat eral side; Note: Date Diagnosed : 10/31/2015 12:30 PM (H90.41) Not Available [facility] 4 02:13:08 Dizziness and giddiness 064667672 Active 2016 Dizziness and giddiness ; Note: Date Diagnosed : 7 12:17 PM (R42) Not Available [facility] 4 02:14:00 Headache 76809006 Active 2016 Headache; Note: Date Diagnosed : 7 12:39 PM (R51) Not Available [facility] 4 02:14:11 Bilateral earache 494056720 Active 2018 Otalgia, bilateral ; Note: Date Diagnosed : 11/05/2018 12:04 PM (H92.03) Not Available [facility] 4 02:13:19 Abnormal auditory perceptio n 72365938 Active 2018 Other abnormal auditory perceptio ns, bilateral ; Note: Date Diagnosed : 11/05/2018 12:04 PM (H93.293) Not Available [facility] 4 02:14:50 Sensorine ural hearing loss of bilateral ears 190249109 Active 2018 Sensorine ural hearing loss, bilateral ; Note: Date Diagnosed : 01/22/2019 12:31 PM (H90.3) Not Available [facility] 4 02:14:38 Allergic rhinitis 99005009 Active 2018 Other allergic rhinitis; Note: Date Diagnosed : 01/22/2019 12:51 PM (J30.89) Not Available [facility] 4 02:13:31 Refractor y migraine 750652703 Active 2022 Other migraine, intractab le, without status migrainos ; Note: Date Diagnosed : 01/22/2023 12:53 PM (G43.819) Not Available [facility] 4 02:14:49 Vertigo of central origin 83062886 Active 2022 Vertigo of central origin; Note: Date Diagnosed : 01/22/2023 12:53 PM (H81.4) Not Available [facility] 4 02:13:24 Otalgia of right ear 8266894473 Active 2024 KIP ROSS MD [address] [place] [address],[address], [address] , [place] [facility] 15:26:38 Problem Notes None recorded. Procedures Surgical History Date Name Laterality Status Provider Name and Address Organization Details Recorded Time 11/04/19 25 Comp Audio with Tymps - 13019 & 60852 completed JOHN JOSEPH [address] [place] [address],[address], [phone], [facility] [place] 11/03/2024 14:14:00 11/04/19 25 Air only Audio - 98293 completed KIP ROSS MD [address] [place] [address],[address], [phone], [facility] [place] 11/02/2024 17:41:27 11/04/19 25 Tympanometry - 72273 completed KIP ROSS MD [address] [place] [address],[address], [phone], [place] [facility] 11/02/2024 17:41:27 11/04/19 25 SRT & Speech Recognition - 07217 completed KIP ROSS MD [address] [place] [address], [place], [address], [place] - [facility] 11/02/2024 17:41:27 10/31/19 24 Air only Audio - 73427 completed Manuela Bray [place] [facility] 10/31/2023 16:40:20 10/31/19 24 Tympanometry - 68654 completed Manuela Bray [place] [facility] 10/31/2023 16:40:30 10/31/19 24 SRT & Speech Recognition - 61672 completed Manuela Bray [place] [facility] 10/31/2023 16:40:23 section completed Emerald Goodson [place] [facility] 10/31/2023 15:55:09 Imaging Results None recorded. Procedure Notes None recorded. Medical Equipment None Reported. Allergies Allergen ID Allergen Name Allergen Category Reaction Reaction Severity Criticality Documentation Date Start Date Code Code System Note Provider Name and Address Organization Details Recorded Time 91490 amoxicill in / clavulana te medicatio n other Not available Not available 09/03/2023 RxNorm React ion: unkno wn, unspe cifie d;; Not Available [facility] 00:51:08 Medications Name Sig Start Date Stop Date Status Note LastModified by Organization Details LastModified Time cyclobenz aprine 10 mg tablet 01/22 completed Medicati on ID: [id number] B rand Name: cycloben zaprine Send Method: E-Prescr ibed Sub s Allowed: subs OK Speci al Instruct ion: TAKE 1 TABLET EVERY 8 HOURS NEEDED FOR MUSCLE SPASMS M edicatio nGeneric Name: cycloben zaprine Not Available Not Available Not Available Mirena 21 mcg/24 hr (up to 8 years) 52 mg intrauter ine device 01/22 completed Medicati on ID: [id number] D uration Value: 30 Brand Name: Mirena S end Method: E-Prescr ibed Sub s Allowed: subs OK Speci al Instruct ion: FOR VAGINAL INSERTIO N BY [facility] PROVIDER Medicat ionGener icName: Mirena Not Available Not Available Not Available metformin 500 mg tablet TAKE 1 TABLET BY MOUTH TWICE DAILY WITH BREAKFAS T AND EVENING MEAL 11/03 completed Not Available Not Available Not Available cyanocoba irina (vit B-12) ER 1,000 mcg tablet,ex tended release 01/22 completed Medicati on ID: [id number] B rand Name: cyanocob alamin (vitamin B-12) Se nd Method: E-Prescr ibed Sub s Allowed: subs OK Speci al Instruct ion: TAKE 1 TABLET BY MOUTH EVERY DAY Medi cationGe nericNam e: cyanocob alamin (vitamin B-12) Not Available Not Available Not Available prednison e 10 mg tablet 01/22 completed Medicati on ID: [id number] P bobby marsh By Name: MELONY Seals nd Name: [...] mg capsule 01/22 completed Medicati on ID: [id number] B rand Name: doxycycl ine hyclate Send Method: E-Prescr ibed Sub s Allowed: subs OK Medic ationGen ericName : doxycycl ine hyclate Not Available Not Available Not Available clindamyc in HCl 300 mg capsule 10/30 completed Not Available Not Available Not Available cetirizin e 10 mg tablet active Medicati on ID: [id number] B rand Name: cetirizi ne Send Method: E-Prescr ibed Sub s Allowed: subs OK Speci al Instruct ion: TAKE 1 TABLET BY MOUTH EVERY DAY Medi cationGe nericNam e: cetirizi ne Not Available Not Available Not Available azithromy antonietta 250 mg tablet 01/22 completed Medicati on ID: [id number] B rand Name: azithrom ycin Sen d Method: E-Prescr ibed Sub s Allowed: subs OK Medic ationGen ericName : azithrom ycin Not Available Not Available Not Available ibuprofen 800 mg tablet TAKE 1/2 TO 1 TABLET BY MOUTH EVERY 8 HOURS NEEDED FOR PAIN (SCALE 4-6) 11/03 completed Not Available Not Available Not Available fluconazo le 150 mg tablet TAKE 1 TABLET BY MOUTH ONCE DAILY IN THE MORNING FOR 1 DOSE 10/30 completed Not Available Not Available Not Available benzonata te 200 mg capsule 01/22 completed Medicati on ID: [id number] B rand Name: benzonat ate Send Method: E-Prescr ibed Sub s Allowed: subs OK Speci al Instruct ion: TAKE 1 CAPSULE BY MOUTH THREE TIMES DAILY NEEDED FOR COUGH Me dication GenericN melva: benzonat ate Not Available Not Available Not Available clarithro mycin 500 mg tablet 01/22 completed Medicati on ID: [id number] B rand Name: clarithr omycin S end Method: E-Prescr ibed Sub s Allowed: subs OK Medic ationGen ericName : clarithr omycin Not Available Not Available Not Available prednison e 20 mg tablet 01/22 completed Medicati on ID: [id number] B rand Name: predniso ne Send Method: E-Prescr ibed Sub s Allowed: subs OK Speci al Instruct ion: TAKE 2 TABLETS BY MOUTH EVERY DAY Medi cationGe nericNam e: predniso ne Not Available Not Available Not Available spironola ctone 100 mg tablet 01/22 completed Medicati on ID: [id number] B rand Name: spironol actone S end [...] completed Not Available Not Available Not Available aspirin 81 mg tablet,de layed release TAKE 2 TABLETS BY MOUTH DAILY 11/03 completed Not Available Not Available Not Available doxycycli ne monohydra te 100 mg tablet 01/22 completed Medicati on ID: [id number] D uration Value: 7 Brand Name: doxycycl [...] mg tablet 01/22 completed Medicati on ID: [id number] B rand Name: Sudogest Send Method: E-Prescr ibed Sub s Allowed: subs OK Medic ationGen ericName : Sudogest Not Available Not Available Not Available citalopra m 20 mg tablet 01/22 completed Medicati on ID: [id number] B rand Name: citalopr am Send Method: E-Prescr ibed Sub s Allowed: subs OK Speci al Instruct ion: TAKE 1 TABLET BY MOUTH EVERY DAY Medi cationGe nericNam e: citalopr am Not Available Not Available Not Available famotidin e 20 mg tablet active Not Available Not Available Not Available meclizine 25 mg tablet TAKE 1 TABLET BY MOUTH THREE TIMES DAILY NEEDED FOR DIZZINES S active Not Available Not Available No t Available bisacodyl 10 mg rectal supposito ry UNWRAP AND INSERT 1 SUPPOSIT ORY RECTALLY DAILY NEEDED FOR CONSTIPA TION 11/03 completed Not Available Not Available Not Available docusate sodium 100 mg capsule TAKE 1 CAPSULE BY MOUTH TWICE A DAY NEEDED FOR CONSTIPA TION active Not Available Not Available No t Available pyridoxin e (vitamin B6) 50 mg tablet TAKE 1 TABLET BY MOUTH THREE TIMES DAILY AFTER MEALS 10/30 completed Not Available Not Available Not Available Banophen 25 mg capsule 01/22 completed Medicati on ID: [id number] B rand Name: Banophen Send Method: E-Prescr ibed Sub s Allowed: subs OK Speci al Instruct ion: TAKE 1 CAPSULE AT BEDTIME Medicati onGeneri cName: Banophen Not Available Not Available Not Available zinc 50 mg tablet 01/22 completed Medicati on ID: [id number] B rand Name: Chelated Zinc Sen d Method: E-Prescr ibed Sub s Allowed: subs OK Speci al Instruct ion: TAKE 1 TABLET EVERY DAY Medi cationGe nericNam e: Chelated Zinc Not Available Not Available Not Available prednisol one 15 mg/5 mL oral solution 01/22 completed Medicati on ID: [id number] B rand Name: predniso lone Sen d [...] as directed 01/22 completed Medicati on ID: [id number] P bobby marsh By Name: MELONY Beckford nd Name: azelasti ne Send Method: E-Prescr ibed Sub s Allowed: subs OK Medic ationGen ericName : azelasti ne Not Available Not Available Not Available ibuprofen 600 mg tablet 11/03 completed Not Available Not Available Not Available polyethyl priya glycol 3350 17 gram/dose oral powder DISSOLVE 17 GRAMS IN BEVERAGE OF CHOICE AND DRINK BY MOUTH ONCE DAILY FOR 7 DAYS. active Not Available Not Available No t Available albuterol sulfate HFA 90 mcg/actua tion aerosol inhaler 11/03 completed Medicati on ID: [id number] B rand Name: albutero l sulfate Send Method: E-Prescr ibed Sub s Allowed: subs OK Medic ationGen ericName : albutero l sulfate Not Available Not Available Not Available ipratropi um bromide 42 mcg (0.06 %) nasal spray 01/22 completed Medicati on ID: [id number] B rand Name: ipratrop ium bromide Send Method: E-Prescr ibed Sub s Allowed: subs OK Speci al Instruct ion: USE 2 SPRAYS IN EACH NOSTRIL THREE TIMES DAILY Me dication GenericN melva: ipratrop ium bromide Not Available Not Available Not Available ondansetr on 4 mg disintegr ating tablet DISSOLVE 1 TABLET ON THE TONGUE EVERY 6 TO 8 HOURS NEEDED FOR NAUSEA OR VOMITING 11/03 completed Not Available Not Available Not Available fluticaso ne propionat e 50 mcg/actua tion nasal spray,christine pension SHAKE LIQUID AND USE 2 SPRAYS IN EACH NOSTRIL DAILY active Not Available Not Available No t Available drospiren one 3 mg-ethiny l estradiol 0.03 mg tablet active Medicati on ID: [id number] B rand Name: drospire none-eth inyl estradio l Send Method: E-Prescr ibed Sub s Allowed: subs OK Medic ationGen ericName : drospire none-eth inyl estradio l Not Available Not Available Not Available doxycycli ne hyclate 100 mg tablet 01/22 completed Medicati on ID: [id number] B rand Name: doxycycl ine hyclate Send Method: E-Prescr ibed Sub s Allowed: subs OK Speci al Instruct ion: TAKE 1 TABLET BY MOUTH TWICE DAILY UNTIL FINISHED Medicat ionGener icName: doxycycl ine hyclate Not Available Not Available Not Available loratadin e 10 mg tablet 01/22 completed Medicati on ID: [id number] D uration Value: 30 Brand Name: loratadi ne Send Method: E-Prescr ibed Sub s Allowed: subs OK Speci al Instruct ion: TAKE 1 TAB BY MOUTH DAILY. Justo Diaz Name: loratadi ne Not Available Not Available Not Available simethico ne 80 mg chewable tablet CHEW 1 TABLET 3 TIMES A DAY X 5 DAYS NEEDED FOR GAS active Not Available Not Available No t Available oxycodone 5 mg tablet TAKE 1 TABLET BY MOUTH EVERY 6 HOURS NEEDED FOR PAIN 11/03 completed Not Available Not Available Not Available NuvaRing 0.12 mg-0.015 mg/24 hr vaginal 01/22 completed Medicati on ID: [id number] B rand Name: NuvaRing Send Method: E-Prescr ibed Sub s Allowed: subs OK Speci al Instruct ion: INSERT 1 RING VAGINALL Y, LEAVE IN FOR THREE WEEKS THEN REMOVE M jake Diaz Name: NuvaRing Not Available Not Available Not Available cyclobenz aprine 5 mg tablet active Not Available Not Available No t Available Flovent HFA 110 mcg/actua tion aerosol inhaler 01/22 completed Medicati on ID: [id number] D uration Value: 30 Brand Name: Flovent HFA Send Method: E-Prescr ibed Sub s Allowed: subs OK Speci al Instruct ion: INHALE 1 PUFF BY MOUTH TWICE DAILY FOR 2 WEEKS Me dication GenericN melva: Flovent HFA Not Available Not Available Not Available fluocinol one 0.01 % scalp oil and shower cap 01/22 completed Medicati on ID: [id number] B rand Name: fluocino lone and shower [...] Payam DM 01/22 completed Medicati on ID: [id number] D uration Value: 3 Brand Name: Payam DM Send Method: E-Prescr ibed Sub s Allowed: subs OK Speci al Instruct ion: TAKE TWO TEASPOON FUL BY MOUTH EVERY 4 HOURS NEEDED M edicatio nGeneric Name: Payam DM Not Available Not Available Not Available ProAir HFA 01/22 completed Medicati on ID: [id number] D uration Value: 17 Brand Name: ProAir HFA Send Method: E-Prescr ibed Sub s Allowed: subs OK Speci al Instruct ion: TAKE 2 PUFFS EVERY 4 HOURS NEEDED FOR COUGHING OR WHEEZING Medicat ionGener icName: ProAir HFA Not Available Not Available Not Available Sudogest 12-hour 120 mg tablet,ex tended release 01/22 completed Medicati on ID: [id number] B rand Name: Sudogest 12-hour Send Method: E-Prescr ibed Sub s Allowed: subs OK Speci al Instruct ion: TAKE 1 TABLET BY MOUTH EVERY TWELVE HOURS Me dication GenericN melva: Sudogest 12-hour Not Available Not Available Not Available oxycodone 10 mg tablet TAKE 1 TABLET BY MOUTH EVERY 3 HOURS X 3 DAYS NEEDED FOR PAIN , SEVERE 11/03 completed Not Available Not Available Not Available Vitamin D3 50 mcg (2,000 unit) capsule 01/22 completed Medicati on ID: [id number] B rand Name: Vitamin D3 Send Method: [...] INHALE 1 PUFF BY MOUTH TWICE DAILY 11/03 completed Not Available Not Available Not Available fluticaso ne 232 mcg-salme terol 14 mcg/actua tion breath activated powdr 01/22 completed Medicati on ID: [id number] B rand Name: fluticas one propion- salmeter ol Send Method: E-Prescr ibed Sub s Allowed: subs OK Medic ationGen ericName : fluticas one propion- salmeter ol Not Available Not Available Not Available M-PAP 160 mg/5 mL oral liquid TAKE 20.3 ML BY MOUTH EVERY 6 HOURS NEEDED 11/03 completed Not Available Not Available Not Available WesTab Plus 27 mg iron-1 mg tablet TAKE 1 TABLET BY MOUTH DAILY 11/03 completed Not Available Not Available Not Available Ozempic 1 mg/dose (4 mg/3 mL) [...] Note [id number] KIP ROSS MD [facility] [address] [address] 10/31/2023 15:25:11 10/31/2023 17:01:13 Refractory migraine [id number] G43.819 Patient's migraine symptoms appear to be much better controlled with identifica tion and eliminatio n of dietary triggers such as caffeine and dehydratio n. I recommende d she continue on this pathway. At this point there is no considerat ion for pharmacolo gic interventi on in light of the fact that she is currently . Vertigo of central origin 56304944 H81.4 Sensorineu ral hearing loss of bilateral ears 507667669 H90.3 Audiologic al evaluation results:Ri ght ear:Modera tely-sever e raising to a moderate sensorineu ral hearing loss with poor word recognitio n.Left ear:Modera tely-sever e sensorineu ral hearing loss with excellent word recognitio n. Tympanomet ry:Right Ear:Type ALeft Ear:Type A This patient was provided a copy of her audiogram to bring back to her audiologis t at [facility] audiology. Her speech discrimina tion is somewhat improved today. We did discuss the possibilit y that her hearing could worsen over time and if so she may be a candidate for cochlear implantati on at some time in the future. [id number] KIP ROSS MD [facility] [address] [address] 11/03/2024 13:47:56 11/03/2024 15:28:10 Refractory migraine 048887832 G43.819 Patient appears to have had a significan t reexacerba tion of the underlying vestibular migraine phenomenon . This is most likely related to her disrupted sleeping patterns due to her child. I gave the patient a significan t amount of literature to review at home regarding how there are many environmen letha and dietary triggers that can lead to not only migraine headaches but balance disturbanc e symptoms as well. We spent a lot of time discussing the importance of following a migraine diet. Patient already has a copy of the Heal Your Headache book to read at home which I recommende d she reread, which gives a step-by-st ep discussion on what causes migraine and how to make the necessary lifestyle and dietary changes to significan tly reduce or eliminate migraine symptoms. I have also recommende d the use of dietary supplement s magnesium, vitamin B2 and feverfew which have been shown to help control migrainous phenomena. We discussed dosage and schedule for these supplement s. I recommende d the patient ask their pediatrici an about the safety of this and the context of breast-fee ding. Vertigo of central origin [id number] H81.4 Sensorineu ral hearing loss of bilateral ears 767828428 H90.3 Audiologic al evaluation results: 11/03/2024R ight ear:Modera tely-sever e flat sensorineu ral hearing loss with fair word recognitio n.Left ear:Modera te sloping to severe sensorineu ral hearing loss with fair word recognitio n. Tympanomet ry:Right Ear:Type BLeft Ear:Type AThis patient was provided a copy of her audiogram to bring back to her audiologis t at [facility] audiology. Her speech discrimina tion is somewhat improved today. We did discuss the possibilit y that her hearing could worsen over time and if so she may be a candidate for cochlear implantati on at some time in the future. Otalgia of right ear [id number] H92.01 Patient is some irritation of the right ear canal which looks to be related to her earmold. I have recommende d she speak with her audiologis t about having the earmold adjusted to reduce the discomfort . Health Concerns Section Related Observation LastModified by Organization Detai ls LastModified Time None Recorded Concern Status LastModified by Organization Details LastModified Time None Recorded Advance Directives Directive None Recorded Payers Insurance Date Sequence Insurance Name Policy Number Policy Sanchez Covered Member ID Sanchez Member ID Guarantor Name 10/30/2024 1 [place] [facility] Rain Adair [id number] Rain [employer] Notes Date Note Type Note Provider Name and Address Organization Details Recorded Time 10/31/2023 text/html 33-year-old oscar quevedo who has been a patient of the practice since 2015. She has an idiopathic bilateral progressive sensorineural hearing loss. She's had MRI scan of the brain, CT scan of the temporal bones, Lyme disease testing, all of which have been negative. She's currently using binaural amplification dispensed through [facility] audiology. She's continued to have more [...] been diagnosed with ocular migraines by her vitreo retinal surgeon. We discussed the concept of vestibular migraine [...] that she is . KIP ROSS MD [address] [place] [address], [phone], [facility] - [facility] 10/31/2023 17:33:55 11/03/2024 text/html 34-year-old oscar quevedo who has been a patient of the practice since 2015. She has an idiopathic bilateral progressive sensorineural hearing loss. She's had MRI scan of the brain, CT scan of the temporal bones, Lyme disease testing, all of which have been negative. She's currently using binaural amplification dispensed through [facility] audiology. She's continued to have more difficulty hearing in a larger variety of different listening situations. Last audiogram showed worsening in her speech discrimination bilaterally to the 20 to 32% range. Patient got new earmolds a new device within the last year or 2. Doing much better with binaural amplification. We have discussed cochlear implant technology in the past in light of her somewhat poor speech discrimination. Patient has been noticing some discomfort in the right ear when she puts the hearing aid in. Back in January 2023 she was having a constellation of symptoms including ocular pain followed by severe headache followed by vertigo, nausea and vomiting. This can be brought on by rapid head or visual stimulation. Symptoms can last anywhere from a few minutes but can last all day. She had been getting a headache about once a month. She has been diagnosed with ocular migraines by her vitreo retinal surgeon. We discussed the concept of vestibular migraine and I gave her a significant amount of literature to review regarding identification and elimination of migraine triggers. Patient reports significant improvement in the frequency and severity of headaches. She was able to read and follow the migraine literature that I provided. She stopped drinking coffee which she thinks was a big help. Patient comes in today accompanied by her 6-month-old baby. She reports having a lot of hearing fatigue because she has to be very cognizant of hearing around the baby. She thinks that this might be a factor in her recent worsening of vertigo. Her baby was sleeping poorly at first but is sleeping a little bit better now. Her symptoms of vertigo started flaring up around the time of the of her child. These symptoms were significant enough that it was affecting her ability to work. She was recently terminated despite having FMLA in place. KIP ROSS MD [address] [place] [address], [place], [phone], [facility] - [facility] 11/03/2024 15:30:38 OBGyn Episode No OBEpisode recorded.
--- OUTSIDE RECORDS SUMMARY | 2024-11-09 11:34 | XMS_ITS | Encounter Summary ---
Author Organization [facility] Address [address] [place] [address] Care Team Providers Care Air Reduction Equipment Operator Name Role Phone Kimberly Grant DO Primary Care Pro vider Unavailable Shahla Calvert MD Primary Care Provide r Unavailable Encounter Details Date Type Department Care Team Description 07/14/2015 Release of Information Medical Records [address] [place] [id number] Abstract, Provider Social History Tobacco Use Types [...] on filedocumented in this encounter Care Teams Air Reduction Equipment Operator Relationship Specialty Start Date End Date Kimberly Grant DO PCP - General Internal Medicine 07/12/15 03/28/20 Shahla Calvert MD PCP - General Internal Medicine 03/29/20 documented as of this encounter
== END 2024-11-09 11:13 | disposition home or self-care (01) ==
LOC: HO.PMC 10:32
PROVIDERS: PCP Internal Medicine; Referring Provider Internal Medicine; Visit Provider Nurse Practitioner Family
DX: M47.816 Spondylosis without myelopathy or radiculopathy, lumbar region (principal); M54.50 Low back pain, unspecified; G89.29 Other chronic pain; M54.16 Radiculopathy, lumbar region; M53.3 Sacrococcygeal disorders, not elsewhere classified; M21.70 Unequal limb length (acquired), unspecified site; E66.01 Morbid (severe) obesity due to excess calories; Z68.41 Body mass index [BMI] 40.0-44.9, adult
CPT/HCPCS: 99214

== ENCOUNTER → 2024-11-09 10:32 | Outpatient (BNVA) | payer MEDICAID, SELFPAY | PROVIDERS: PCP Internal Medicine; Referring Provider Internal Medicine; Visit Provider Nurse Practitioner Family | DX: M47.816 Spondylosis without myelopathy or radiculopathy, lumbar region (principal); M54.50 Low back pain, unspecified; G89.29 Other chronic pain; M54.16 Radiculopathy, lumbar region; M53.3 Sacrococcygeal disorders, not elsewhere classified; M21.70 Unequal limb length (acquired), unspecified site; E66.01 Morbid (severe) obesity due to excess calories; Z68.41 Body mass index [BMI] 40.0-44.9, adult | CPT/HCPCS: 99212 ==

== ENCOUNTER 2024-11-17 14:35 | Outpatient (REF) | payer MEDICAID, SELFPAY ==
--- OUTSIDE RECORDS SUMMARY | 2024-11-17 15:17 | XMS_ITS | Data Portability ---
Author Organization [place] - [facility], Allergy Address [address] [place] [address] Care Team Providers Care Waste Water Operator Name Role Phone MANUELA ZACARIAS Primary Care [...] Details Recorded Time Tinnitus of right ear [id number] Active 2015 Tinnitus, right ear; Note: Date Diagnosed : 10/31/2015 12:30 PM (H93.11) Not Available [facility] 4 02:14:35 Sensorine ural hearing loss 63394273 Active 2015 Sensorine ural hearing loss, unilatera l, right ear, with unrestric jazmyn hearing on the contralat eral side; Note: Date Diagnosed : 10/31/2015 12:30 PM (H90.41) Not Available [facility] 4 02:13:08 Dizziness and giddiness 606190959 Active 2016 Dizziness and giddiness ; Note: Date Diagnosed : 7 12:17 PM (R42) Not Available [facility] 4 02:14:00 Headache 73960326 Active 2016 Headache; Note: Date Diagnosed : 7 12:39 PM (R51) Not Available [facility] 4 02:14:11 Bilateral earache 587385683 Active 2018 Otalgia, bilateral ; Note: Date Diagnosed : 11/05/2018 12:04 PM (H92.03) Not Available [facility] 4 02:13:19 Abnormal auditory perceptio n 43530844 Active 2018 Other abnormal auditory perceptio ns, bilateral ; Note: Date Diagnosed : 11/05/2018 12:04 PM (H93.293) Not Available [facility] 4 02:14:50 Sensorine ural hearing loss of bilateral ears 504426054 Active 2018 Sensorine ural hearing loss, bilateral ; Note: Date Diagnosed : 01/22/2019 12:31 PM (H90.3) Not Available [facility] 4 02:14:38 Allergic rhinitis 85001359 Active 2018 Other allergic rhinitis; Note: Date Diagnosed : 01/22/2019 12:51 PM (J30.89) Not Available [facility] 4 02:13:31 Refractor y migraine 973254352 Active 2022 Other migraine, intractab le, without status migrainos ; Note: Date Diagnosed : 01/22/2023 12:53 PM (G43.819) Not Available [facility] 4 02:14:49 Vertigo of central origin 72976873 Active 2022 Vertigo of central origin; Note: Date Diagnosed : 01/22/2023 12:53 PM (H81.4) Not Available [facility] 4 02:13:24 Otalgia of right ear 2544921761 Active 2024 KIP ROSS MD [address] [place] [address],[address], [address] , [place] - [facility] 15:26:38 Problem Notes None recorded. Procedures Surgical History Date Name Laterality Status Provider Name and Address Organization Details Recorded Time 11/04/19 25 Comp Audio with Tymps - 16740 & 22527 completed JOHN JOSEPH [address] [place] [address],[address], [address], [facility] - [facility] 11/03/2024 14:14:00 11/04/19 25 Air only Audio - 25687 completed KIP ROSS MD [address] [place] [address],[address], [address], [facility] - [facility] 11/02/2024 17:41:27 11/04/19 25 Tympanometry - 24983 completed KIP ROSS MD [address] [place] [address],[address], [address], [place] - [facility] 11/02/2024 17:41:27 11/04/19 25 SRT & Speech Recognition - 20089 completed KIP ROSS MD [address] [place] [address], [place], [address], [place] - [facility] 11/02/2024 17:41:27 10/31/19 24 Air only Audio - 03623 completed Manuela Bray [place] - [facility] 10/31/2023 16:40:20 10/31/19 24 Tympanometry - 60356 completed Manuela Bray [place] - [facility] 10/31/2023 16:40:30 10/31/19 24 SRT & Speech Recognition - 38841 completed Manuela Bray [place] - [facility] 10/31/2023 16:40:23 section completed Emerald Goodson [place] - [facility] 10/31/2023 15:55:09 Imaging Results None recorded. Procedure Notes None recorded. Medical Equipment None Reported. Allergies Allergen ID Allergen Name Allergen Category Reaction Reaction Severity Criticality Documentation Date Start Date Code Code System Note Provider Name and Address Organization Details Recorded Time 29920 amoxicill in / clavulana te medicatio n other Not available Not available 09/03/2023 RxNorm React ion: unkno wn, unspe cifie d;; Not Available [facility] 00:51:08 Medications Name Sig Start Date Stop Date Status Note LastModified by Organization Details LastModified Time cyclobenz aprine 10 mg tablet 01/22 completed Medicati on ID: [id number] B rand Name: cycloben zaprine Send Method: E-Prescr ibed Sub s Allowed: subs OK Speci al Instruct ion: TAKE 1 TABLET EVERY 8 HOURS NEEDED FOR MUSCLE SPASMS M edicatio nGeneric Name: cycloben zaprine Not Available Not Available Not Available Mirena 21 mcg/24 hr (up to 8 years) 52 mg intrauter ine device 01/22 completed Medicati on ID: [id number] D uration Value: 30 Brand Name: Mirena S end Method: E-Prescr ibed Sub s Allowed: subs OK Speci al Instruct ion: FOR VAGINAL INSERTIO N BY [facility] PROVIDER Medicat ionGener icName: Mirena Not Available Not Available Not Available metformin 500 mg tablet TAKE 1 TABLET BY MOUTH TWICE DAILY WITH BREAKFAS T AND EVENING MEAL 11/03 completed Not Available Not Available Not Available cyanocoba irina (vit B-12) ER 1,000 mcg tablet,ex tended release 01/22 completed Medicati on ID: [id number] B rand Name: cyanocob alamin (vitamin B-12) Se nd Method: E-Prescr ibed Sub s Allowed: subs OK Speci al Instruct ion: TAKE 1 TABLET BY MOUTH EVERY DAY Medi cationGe nericNam e: cyanocob alamin (vitamin B-12) Not Available Not Available Not Available prednison e 10 mg tablet 01/22 completed Medicati on ID: [id number] P bobby masrh By Name: MELONY Seals nd Name: predniso [...] mg capsule 01/22 completed Medicati on ID: [id number] B rand Name: doxycycl ine hyclate Send Method: E-Prescr ibed Sub s Allowed: subs OK Medic ationGen ericName : doxycycl ine hyclate Not Available Not Available Not Available clindamyc in HCl 300 mg capsule 10/30 completed Not Available Not Available Not Available cetirizin e 10 mg tablet active Medicati on ID: [id number] B rand Name: cetirizi ne Send Method: E-Prescr ibed Sub s Allowed: subs OK Speci al Instruct ion: TAKE 1 TABLET BY MOUTH EVERY DAY Medi cationGe nericNam e: cetirizi ne Not Available Not Available Not Available azithromy antonietta 250 mg tablet 01/22 completed Medicati on ID: [id number] B rand Name: azithrom ycin Sen d [...] mg capsule 01/22 completed Medicati on ID: [id number] B rand Name: benzonat ate Send Method: E-Prescr ibed Sub s Allowed: subs OK Speci al Instruct ion: TAKE 1 CAPSULE BY MOUTH THREE TIMES DAILY NEEDED FOR COUGH Me dication GenericN melva: benzonat ate Not Available Not Available Not Available clarithro mycin 500 mg tablet 01/22 completed Medicati on ID: [id number] B rand Name: clarithr omycin S end Method: E-Prescr ibed Sub s Allowed: subs OK Medic ationGen ericName : clarithr omycin Not Available Not Available Not Available prednison e 20 mg tablet 01/22 completed Medicati on ID: [id number] B rand Name: predniso ne Send Method: E-Prescr ibed Sub s Allowed: subs OK Speci al Instruct ion: TAKE 2 TABLETS BY MOUTH EVERY DAY Medi cationGe nericNam e: predniso ne Not Available Not Available Not Available spironola ctone 100 mg tablet 01/22 completed Medicati on ID: [id number] B rand Name: spironol actone S end [...] mg tablet 01/22 completed Medicati on ID: [id number] D uration Value: 7 Brand Name: doxycycl [...] mg tablet 01/22 completed Medicati on ID: [id number] B rand Name: Sudogest Send Method: E-Prescr ibed Sub s Allowed: subs OK Medic ationGen ericName : Sudogest Not Available Not Available Not Available citalopra m 20 mg tablet 01/22 completed Medicati on ID: [id number] B rand Name: citalopr am Send Method: [...] mg capsule 01/22 completed Medicati on ID: [id number] B rand Name: Banophen Send Method: E-Prescr ibed Sub s Allowed: subs OK Speci al Instruct ion: TAKE 1 CAPSULE AT BEDTIME Medicati onGeneri cName: Banophen Not Available Not Available Not Available zinc 50 mg tablet 01/22 completed Medicati on ID: [id number] B rand Name: Chelated Zinc Sen d Method: E-Prescr ibed Sub s Allowed: subs OK Speci al Instruct ion: TAKE 1 TABLET EVERY DAY Medi cationGe nericNam e: Chelated Zinc Not Available Not Available Not Available prednisol one 15 mg/5 mL oral solution 01/22 completed Medicati on ID: [id number] B rand Name: predniso lone Sen d [...] as directed 01/22 completed Medicati on ID: [id number] P bobby marsh By Name: MELONY Beckford [...] aerosol inhaler 11/03 completed Medicati on ID: [id number] B rand Name: albutero l sulfate Send Method: E-Prescr ibed Sub s Allowed: subs OK Medic ationGen ericName : albutero l sulfate Not Available Not Available Not Available ipratropi um bromide 42 mcg (0.06 %) nasal spray 01/22 completed Medicati on ID: [id number] B rand Name: ipratrop ium bromide Send [...] 0.03 mg tablet active Medicati on ID: [id number] B rand Name: drospire none-eth inyl estradio l Send Method: E-Prescr ibed Sub s Allowed: subs OK Medic ationGen ericName : drospire none-eth inyl estradio l Not Available Not Available Not Available doxycycli ne hyclate 100 mg tablet 01/22 completed Medicati on ID: [id number] B rand Name: doxycycl ine hyclate Send Method: E-Prescr ibed Sub s Allowed: subs OK Speci al Instruct ion: TAKE 1 TABLET BY MOUTH TWICE DAILY UNTIL FINISHED Medicat ionGener icName: doxycycl ine hyclate Not Available Not Available Not Available loratadin e 10 mg tablet 01/22 completed Medicati on ID: [id number] D uration Value: 30 Brand Name: loratadi [...] hr vaginal 01/22 completed Medicati on ID: [id number] B rand Name: NuvaRing Send Method: E-Prescr [...] aerosol inhaler 01/22 completed Medicati on ID: [id number] D uration Value: 30 Brand Name: Flovent HFA Send Method: E-Prescr ibed Sub s Allowed: subs OK Speci al Instruct ion: INHALE 1 PUFF BY MOUTH TWICE DAILY FOR 2 WEEKS Me dication GenericN melva: Flovent HFA Not Available Not Available Not Available fluocinol one 0.01 % scalp oil and shower cap 01/22 completed Medicati on ID: [id number] B rand Name: fluocino lone and shower [...] Payam DM 01/22 completed Medicati on ID: [id number] D uration Value: 3 Brand Name: Payam DM Send Method: E-Prescr ibed Sub s Allowed: subs OK Speci al Instruct ion: TAKE TWO TEASPOON FUL BY MOUTH EVERY 4 HOURS NEEDED M edicatio nGeneric Name: Payam DM Not Available Not Available Not Available ProAir HFA 01/22 completed Medicati on ID: 373318 D uration Value: 17 Brand Name: ProAir HFA Send Method: E-Prescr ibed Sub s Allowed: subs OK Speci al Instruct ion: TAKE 2 PUFFS EVERY 4 HOURS NEEDED FOR COUGHING OR WHEEZING Medicat ionGener icName: ProAir HFA Not Available Not Available Not Available Sudogest 12-hour 120 mg tablet,ex tended release 01/22 completed Medicati on ID: [id number] B rand Name: Sudogest 12-hour Send Method: [...] unit) capsule 01/22 completed Medicati on ID: [id number] B rand Name: Vitamin D3 Send Method: [...] activated powdr 01/22 completed Medicati on ID: 526344 B rand Name: fluticas one propion- salmeter [...] Note [id number] KIP ROSS MD [facility] [address] [address] 10/31/2023 15:25:11 10/31/2023 17:01:13 Refractory migraine [id number] G43.819 Patient's migraine symptoms appear to be much better controlled with identifica tion and eliminatio n of dietary triggers such as caffeine and dehydratio n. I recommende d she continue on this pathway. At this point there is no considerat ion for pharmacolo gic interventi on in light of the fact that she is currently . Vertigo of central origin 22363805 H81.4 Sensorineu ral hearing loss of bilateral ears 865333815 H90.3 Audiologic al evaluation results:Ri ght ear:Modera tely-sever e raising to a moderate sensorineu ral hearing loss with poor word recognitio n.Left ear:Modera tely-sever e sensorineu ral hearing loss with excellent word recognitio n. Tympanomet ry:Right Ear:Type ALeft Ear:Type A This patient was provided a copy of her audiogram to bring back to her audiologis t at [facility] audiology. Her speech discrimina tion is somewhat improved today. We did discuss the possibilit y that her hearing could worsen over time and if so she may be a candidate for cochlear implantati on at some time in the future. [id number] KIP ROSS MD [facility] [address] [address] 11/03/2024 13:47:56 11/03/2024 15:28:10 Refractory migraine [id number] G43.819 Patient appears to have had a [...] of breast-fee ding. Vertigo of central origin 94724905 H81.4 Sensorineu ral hearing loss of bilateral ears 348679560 H90.3 Audiologic al evaluation results: 11/03/2024R ight ear:Modera tely-sever e flat sensorineu ral hearing loss with fair word recognitio n.Left ear:Modera te sloping to severe sensorineu ral hearing loss with fair word recognitio n. Tympanomet ry:Right Ear:Type BLeft Ear:Type AThis patient was provided a copy of her audiogram to bring back to her audiologis t at [facility] audiology. Her speech discrimina tion is somewhat improved today. We did discuss the possibilit y that her hearing could worsen over time and if so she may be a candidate for cochlear implantati on at some time in the future. Otalgia of right ear 545 4762569 H92.01 Patient is some irritation of the [...] Sanchez Member ID Guarantor Name 10/30/2024 1 [place] [facility] [id number] [facility] Episode No OBEpisode recorded.
--- OUTSIDE RECORDS SUMMARY | 2024-11-17 15:17 | XMS_ITS | Encounter Summary ---
Author Organization [facility] Address [address] [place] [address] Care Team Providers Care Top Lift Compressor Name Role Phone Kimberly Grant DO Primary Care Pro vider Unavailable Shahla Calvert MD Primary Care Provide r Unavailable Encounter Details Date Type Department Care Team Description 07/14/2015 Release of Information Medical Records [address] [place] [id number] Abstract, Provider Social History Tobacco Use Types [...] on filedocumented in this encounter Care Teams Top Lift Compressor Relationship Specialty Start Date End Date Kimberly Grant DO PCP - General Internal Medicine 07/12/15 03/28/20 Shahla Calvert MD PCP - General Internal Medicine 03/29/20 documented as of this encounter
--- OUTSIDE RECORDS SUMMARY | 2024-11-17 15:18 | XMS_ITS | Encounter Summary ---
Author Organization [employer] Address [address] [facility] [address] [place] [address] Care Team Providers Care Turf Farm Worker Name Role Phone Shahla Person MD Primary Care Provide r Encounter Details Date Type Department Care Team (Late st Contact Info) Description 08/12/2024 Orders Only [facility] [address] [place], [place] [phone] Randa Meredith Social History Tobacco Use Types [...] MAINTENANCE Edited Result - Final [facility] [address] [place] [address], documented in this encounter Visit Diagnoses Not on filedocumented in this encounter Additional Health Concerns Assessment Noted Time PHQ-9 Depression Total Score: 0 05/02/19 24 1:31 PM EST documented as of this encounter Care Teams Turf Farm Worker Relationship Specialty Start Date End Date Shahla Person MD [address] [place] [address] PCP - General Family Medicine 12/12/18 documented as of this encounter
--- OUTSIDE RECORDS SUMMARY | 2024-11-17 15:18 | XMS_ITS | Clinical Summary ---
Author Organization [facility] Address [address] [place] [address] Care Team Providers Care Mushroom Growing Supervisor Name Role Phone Shahla Person MD Primary [...] age to complete this topic Care Teams Mushroom Growing Supervisor Relationship Specialty Start Date End Date Shahla Person MD [address] [place] [phone] PCP - General Internal Medicine 03/29/20
== END 2024-11-17 14:36 | disposition home or self-care (01) ==
LOC: HO.HAP 14:35
PROVIDERS: Visit Provider Internal Medicine
DX: Z46.1 Encounter for fitting and adjustment of hearing aid (principal); H90.3 Sensorineural hearing loss, bilateral
CPT/HCPCS: 92593

== ENCOUNTER 2024-11-27 11:32 | Outpatient (REF) | payer MEDICAID, SELFPAY ==
--- NOTE | ~2024-11-27 | XR_ITS ---
CLINICAL HISTORY: M47.816 - Spondylosis without myelopathy or radiculopathy, lumbar region 7 views lumbar spine Comparison: None provided Findings: Normal alignment. No acute fractures or dislocation. No significant degenerative change. IMPRESSION: No acute findings. This document has been electronically signed by: Elenita Almeida MD on 11/27/2024 16:45:55
--- NOTE | ~2024-11-27 | XR_ITS ---
CLINICAL HISTORY: M53.3 - Sacrococcygeal disorders, not elsewhere classified 3 views sacroiliac joints Comparison: None provided Findings No acute fractures. No significant degenerative change. No erosions. IMPRESSION: No acute findings This document has been electronically signed by: Elenita Almeida MD on 11/27/2024 16:45:04
--- OUTSIDE RECORDS SUMMARY | 2024-11-27 11:41 | XMS_ITS | Clinical Summary ---
Author Organization [employer] [facility] ity Address [address] [place] [address] Care Team Providers Care Otr Refrigerated Cdl Truck Driver Name Role Phone Shahla Person MD Primary [...] 03/27/2022 1:49 PM EST Plan of Treatment Upcoming Encounters Date Type Department Care Team ([facility] st Contact Info) Description 12/24/2024 9:30 AM EDT Office Visit Bariatric Surgery - [place] [address] [place] [address] Tiffany Hansen MD [address] [place] [address] Health Maintenance Due Date Last Done Comments [...] on patient's age to complete this topic Insurance MEDICAID - [place] Care Teams Otr Refrigerated Cdl Truck Driver Relationship Specialty Start Date End Date Shahla Person MD [address] [place] [phone] PCP - General Internal Medicine 03/29/20
--- OUTSIDE RECORDS SUMMARY | 2024-11-27 11:41 | XMS_ITS | Encounter Summary ---
Author Organization [employer] Address [address] [facility] [address] [place] [address] Care Team Providers Care Digital Forensic Examiner Name Role Phone Shahla Person MD Primary Care Provide r Encounter Details Date Type Department Care Team (Late st Contact Info) Description 08/12/2024 Orders Only [facility] [address] [place], [place] [phone] Randa Meredith Social History Tobacco Use Types [...] MAINTENANCE Edited Result - Final [facility] [address] [place] [address], documented in this encounter Visit Diagnoses Not on filedocumented in this encounter Additional Health Concerns Assessment Noted Time PHQ-9 Depression Total Score: 0 05/02/19 24 1:31 PM EST documented as of this encounter Care Teams Digital Forensic Examiner Relationship Specialty Start Date End Date Shahla Person MD [address] [place] [address] PCP - General Family Medicine 12/12/18 documented as of this encounter
== END 2024-11-27 11:33 | disposition home or self-care (01) ==
LOC: HO.XRAY 11:32
PROVIDERS: Absent Provider Nurse Practitioner Family; PCP Internal Medicine; Visit Provider Chiropractor
DX: M47.816 Spondylosis without myelopathy or radiculopathy, lumbar region (principal); M53.3 Sacrococcygeal disorders, not elsewhere classified; M54.2 Cervicalgia; M54.6 Pain in thoracic spine; M54.50 Low back pain, unspecified; G89.29 Other chronic pain
CPT/HCPCS: 72114; 72202

== ENCOUNTER → 2024-11-27 11:43 | Outpatient (BNV) | payer MEDICAID, SELFPAY | PROVIDERS: Absent Provider Nurse Practitioner Family; PCP Internal Medicine; Visit Provider Radiology Diagnostic Radiology | DX: M47.816 Spondylosis without myelopathy or radiculopathy, lumbar region (principal); M54.18 Radiculopathy, sacral and sacrococcygeal region | CPT/HCPCS: 72114; 72202 ==

== ENCOUNTER 2024-12-22 12:03 | Outpatient (REF) | payer MEDICAID, SELFPAY ==
--- OUTSIDE RECORDS SUMMARY | 2024-12-22 13:24 | XMS_ITS | Encounter Summary ---
Author Organization [email or web address] Address [address] [facility] [address] [place] [address] Care Team Providers Care Project Inspector Name Role Phone Shahla Person MD Primary Care Provide r Encounter Details Date Type Department Care Team (Late st Contact Info) Description 06/26/2022 Orders Only [facility] [address] [place], [place] [phone] Nella Haines MD [address] [place], [place] [phone] Mixed conductive and sensorineural hearing loss of [...] (07/09/2022 4:15 AM EDT) Color Urine Yellow [facility] Appearance Urine Clear [facility] PH 6.5 5.0 - 9.0 [facility] Glucose Urine UA Negative Negative mg/dL [facility] Urine Blood Negative Negative [facility] Specific Hardy - Urine <=1.005 1.005 - 1.025 [facility] Urine Protein Negative Neg-Trace mg/dL [facility] Urine Ketones Negative Negative mg/dL [facility] Nitrite Urine Negative Negative [facility] Leukocyte Esterase Urine Negative Negative [facility] 07/09/2022 4:15 AM EDT 07/09/2022 4:30 AM EDT Narrative [facility] - 07/09/2022 4:33 AM EDT [id number], Clean Catch [facility] External Provider LAB URI NE ORDERABLES Final Result [facility] [address] [place] [address] [phone] * Lipase (07/09/2022 1:14 AM EDT) Lipase 22 8 - 78 U/L [facility] 07/09/2022 1:14 AM EDT 07/09/2022 1:17 AM EDT [facility] External Provider LAB BLO OD ORDERABLES Final Result [facility] [address] [place] [phone] * (ABNORMAL) Basic Metabolic Panel (07/09/2022 1:14 AM EDT) Sodium 138 135 - 145 mmol/L [facility] Potassium 3.9 3.3 - 5.1 mmol/L [facility] Chloride 104 96 - 108 mmol/L [facility] Carbon Dioxide 26 22 - 29 mmol/L [facility] Anion Gap 12 12 - 20 [facility] Urea Nitrogen (BUN) 8(L) 9 - 16 mg/dL [facility] Creatinine, Serum 0.81 0.5 - 1.4 mg/dL [facility] Creatinine Clr Calc Pharmacy 89.3 [facility] Comment:Provided height and weight: 144.78 cm,82.554 kg.eGFR (calculated from the MDRD study equation) and eCrCl(calculated from the Cockcroft-Gault equation) are based ondifferent parameters and may not yield comparable results.If eCrCl result is absurd, please check patient'sheight/weight. Estimated Glomerular Filt Rate >60 [facility] Comment:NOTE: For -Am erican individuals, multiply the result by 1.210.Chronic Kidney Disease: Estimated GFR < 60 mL/min/1.07d8Kgrded Kidney Disease: Estimated GFR < 15 mL/min/1.73m2 Glucose 109 60 - 115 mg/dL [facility] Calcium 8.9 8.4 - 10.2 mg/dL [facility] 07/09/2022 1:14 AM EDT 07/09/2022 1:17 AM EDT [facility] External Provider LAB BLO OD ORDERABLES Final Result Performing Organization Address [facility]/ZIP Co de Phone Number [facility] [address] [place] [address] [phone] * (ABNORMAL) Hepatic Function Panel (07/09/2022 1:14 AM EDT) [facility] Bilirubin, Total 1.7(H) 0.0 - 1.0 mg/dL [facility] Bilirubin, Direct 0.8(H) 0.0 - 0.5 mg/dL [facility] Aspartate Amino Transferase 346(H) 5 - 31 U/L [facility] Alanine Aminotransferase 229(H) 0 - 31 U/L [facility] Total Protein 6.6 6.5 - 8.0 g/dL [facility] Albumin Level 4.0 3.5 - 5.0 g/dL [facility] Alkaline Phosphatase 112 39 - 117 U/L [facility] 07/09/2022 1:14 AM EDT 07/09/2022 1:17 AM EDT [facility] External Provider LAB BLO OD ORDERABLES Final Result Performing Organization Address [facility] Co de Phone Number [facility] [address] [place] [phone] * (ABNORMAL) CBC auto differential (07/09/2022 1:14 AM EDT) White Blood Count 10.1 4.8 - 10.8 X10*3/uL [facility] Red Blood Count 4.41 4.20 - 5.50 X10*6/uL [facility] Hemoglobin 13.7 12.0 - 16.0 g/dl [facility] Hematocrit 41.0 37.0 - 47.0 % [facility] Mean Corpuscular Volume 93.0 80.0 - 98.0 fL [facility] Mean Corpuscular Hemoglobin 31.1 27.0 - 33.0 pg [facility] Mean Corpuscular HGB Conc 33.4 31.0 - 35.0 g/dl [facility] Red Cell Distribution Width 12.6 11.0 - 16.0 % [facility] Platelet Count 225 160 - 400 X10*3/uL [facility] Mean Platelet Volume 10.1 9.4 - 12.3 fL [facility] Neutrophils Percent Auto 77.1(H) 45 - 73 % [facility] Imm Gran Pct Auto 0.2 0.0 - 0.4 % [facility] Lymphocytes Percent Auto 12.5(L) 20 - 40 % [facility] Monocytes Percent Auto 8.3 2 - 11 % [facility] Eosinophils Percent Auto 1.4 0 - 4 % [facility] Basophils Percent Auto 0.5 0 - 2 % [facility] NRBC Pct Auto 0.0 0.0 - 0.2 /100WBC [facility] Neutrophils Absolute Auto 7.8 2.0 - 8.3 x10*3/uL [facility] Imm Gran Abs Auto 0.02 0.00 - 0.03 X10*3/uL [facility] Lymphocytes Absolute Auto 1.3 1.2 - 4.9 X10*3/uL [facility] Monocytes Absolute Auto 0.8 0.1 - 1.2 X10*3/uL [facility] Eosinophils Absolute Auto 0.1 0.0 - 0.4 X10*3/uL [facility] Basophils Absolute Auto 0.1 0.0 - 0.2 X10*3/uL [facility] NRBC Abs Auto 0.000 0.0 - 0.012 X10*3/uL [facility] 07/09/2022 1:14 AM EDT 07/09/2022 1:17 AM EDT [facility] External Provider LAB BLO OD ORDERABLES Final Result [facility] [address] [place] [phone] documented in this encounter Visit Diagnoses Diagnosis 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
--- OUTSIDE RECORDS SUMMARY | 2024-12-22 13:24 | XMS_ITS | Clinical Summary ---
Author Organization [employer] Address [address] [place] [address] 7t [place] [address] Care Team Providers Care Hospital Cleaning Specialist Name Role Phone Shahla Person MD Primary Care Provide r Allergies Active Allergy Reactions Criticality Noted Date Comments Amoxicillin 09/05/2016 Amoxicillin-Pot Clavulanate Anaphylaxis,Hives High 0 07/12/2015 Clavulanic Acid 09/05/2016 Latex 09/21/2024 Penicillin G 09/21/2024 Medications aspirin-acetaminop hen-caffeine (Excedrin Migraine) 250-250-65 MG [...] 1 Active ergocalciferol (Vitamin D2) 1.25 MG (31543 UT) capsule Take 1 capsule by mouth [...] the morning. 30 tablet 2 4 Active metFORMIN (Glucophage) 500 MG tabletIndications: PCOS (polycystic ovarian syndrome) Take 1 tablet (500 mg) by mouth with breakfast and with evening meal. 60 tablet 11 4 Active albuterol (Ventolin HFA) 108 (90 [...] per day. 16 g 1 4 Active cyclobenzaprine (Flexeril) 5 MG tabletIndications: Lumbar back pain Take 1 tablet (5 mg) by mouth 3 times daily for 10 days. 30 tablet 5 Active meclizine (Antivert) 25 MG tabletIndications: Vertigo TAKE 1 TABLET BY MOUTH THREE TIMES DAILY NEEDED FOR DIZZINESS 30 tablet 5 Active ondansetron ODT (Zofran-ODT) 4 MG disintegrating tabletIndications: Vertigo DISSOLVE 1 TABLET ON TONGUE EVERY 6 TO 8 HOURS NEEDED FOR NAUSEA AND VOMITING. 20 tablet 5 Active famotidine (Pepcid) 20 MG tabletIndications: Heartburn Take 1 tablet (20 mg) by mouth 2 times daily. 60 tablet 11 5 026 Active Active Problems Problem Noted Date Diagnosed Date Class 3 severe obesity due t o excess calories with serious comorbidity and body mass index (BMI) of 40.0 to 44.9 in adult 11/02/2024 History of frequent ear infections 10/16/2024 Chronic pain of both ears 10/16/2024 Assessment & Plan (10/16/2024 1:00 PM EDT): Patient has her ENT following her, she reports she has an appointment on November 03, 2024 Heartburn 10/16/2024 Assessment & Plan (10/16/2024 1:01 PM EDT): I advise patient to avoid NSAIDs, spicy and acid food, I advise to eat at the same time every day, I advise to elevate the head of the bed and take medications as prescribe and I will prescribe famotidine and Zofran as needed Seasonal allergies 12/09/2023 Vertigo 08/08/2023 Assessment & Plan (10/16/2024 1:01 PM EDT): I will refill her meclizine and advised to maintain hydration and change positions slowly Obesity (BMI 35.0-39.9 without comorbidity) 08/20 Assessment & Plan (05/02/2023 2:05 PM EST): Today extensive discussion was done about life style modifications I advise healthy diet (low calorie) and cardiovascular exercise May c/w ozempic Assessment & Plan (12/31/2022 3:50 PM EDT): continue with ozempic, I associate counsel patient information about medication will be mail [...] start her first on phentiramine 37.5mg daily Muscle strain of gluteal region, right, initial encounter 07/30/2022 L4-L5 disc bulge 03/19/2022 Assessment & Plan (10/16/2024 1:03 PM EDT): Apply heat on affected area medications prescribed for probable I will refer patient to pain management Lumbar back pain 03/19/2022 Assessment & Plan (10/22/2024 5:11 PM EDT): Continue with medications as needed for pain Do not miss appointment with pain management Assessment & Plan (10/16/2024 1:05 PM EDT): Apply heat on affected area I will prescribe a muscle relaxer 5 mg every 8 hours if needed patient is aware of side effects somnolence I will prescribe for patient ibuprofen 800 mg every 8 hours for full stomach Assessment & Plan (07/30/2022 9:32 AM EDT): [...] obesity 03/19/2022 Acne vulgaris 11/08/2017 Hirsutism 11/08/2017 PCOS (polycystic ovarian syndrome) 09/20/2016 Assessment & Plan (08/08/2023 4:20 PM EDT): I will refer her to gynecology and start her on metformin Hearing loss 08/22/2016 Anxiety 04/25/2016 Assessment & Plan (09/06/2022 10:05 AM EDT): Improve continue with same interventions Asthma in adult 07/12/2015 Resolved Problems Problem Noted Date Diagnosed Date Resolved Date 22 weeks gestation of 12/09/2023 10/16/2024 Assessment & Plan (12/09/2023 4:18 PM EDT): Continue to follow with OBGYN Positive blood test 08/29/2023 10/16/2024 Positive urine test 08/26/2023 10/16/2024 Encounter for preventive care 08/08/2023 10/16/2024 Assessment & Plan (08/13/2024 4:28 PM EDT): See HPI Assessment & Plan (08/08/2023 4:20 PM EDT): See HPI Congestion of nasal sinus 01/30/2023 Assessment & Plan (01/30/2023 11:57 AM EDT): Drink plenty of fluids and rest Medications for allergies and asthma will be refill If she continues to feel sick I advise to go to [facility] Vaginal candidiasis 09/04/2022 10/17/19 Assessment & Plan (09/04/2022 3:27 PM EDT): -Wet prep with RUFINA significant for budding yeast. No clue, no trich. -Candidiasis prevention discussed. -Rx fluconazole 150mg once and clotrimazole cream Family planning 09/04/2022 10/16/2024 Assessment & Plan (09/04/2022 3:25 PM EDT): Restarting BC. She was given refills of sean. Lower abdominal pain 10/25/2017 025 Mild persistent asthma 06/26/201610/16 Encounters Date Type Department Care Team Description 11/17/2024 Telephone [facility] MEDICINE [address] [place] [address] Shahla Person MD Nurse Triage 11/02/2024 Orders Only [facility] MEDICINE [address] [place] [address] Shahla Person MD Class 3 severe obesity due to excess calories with serious comorbidity and body mass index (BMI) of 40.0 to 44.9 in adult (Primary Dx) 10/22/2024 3:30 PM EDT Telemedicine [facility] MEDICINE [address] [place] [phone] Shahla Person MD Lumbar back pain (Primary Dx) 10/22/2024 Travel 10/21/2024 Telephone [facility] MEDICINE [address] [place] [address] [phone] Shahla Person MD Chart Prep 10/16/2024 9:00 AM EDT Office Visit [facility] [address] [place] [address] [phone] Shahla Person MD History of frequent ear infections (Primary Dx); Lumbar back pain; Bilateral hearing loss, unspecified hearing loss type; Chronic pain of both ears; Heartburn; Vertigo; L4-L5 disc bulge 10/16/2024 Patient Outreach [facility] CHC MED & PEDS [address] [place], [place] [phone] Shahla Person MD Pre-visit Planning (SDOH was already completed) 10/16/2024 Travel 10/15/[address] [phone] Shahla Person MD Nurse Triage from Last 3 Months Immunizations Immunization Administration Dates Next Due Influenza Injectable Quadriv [...] Sign Reading Time Taken Comments Blood Pressure 125/76 10/16/2024 8:46 AM EDT Pulse 68 10/16/2024 8:46 AM EDT Temperature 36.6 C (97.9 F) 10/16/2024 8:46 AM EDT Respiratory Rate 17 10/16/2024 8:46 AM EDT Oxygen Saturation 97% 10/16/2024 8:46 AM EDT Inhaled Oxygen Concentration - - Weight 94.4 kg (208 lb 2 oz) 10/16/2024 8:46 AM EDT Height 145 cm (4' 9.09 ) 10/16/2024 8:46 AM EDT Body Mass Index 44.9 10/16/2024 8:46 AM EDT Plan of Treatment Health Maintenance Due Date Last Done Comments Family Planning (PISQ) 2006 HPV Vaccines (1 - 3-dose series) 2006 Hepatitis B Vaccines (1 of 3 - 19+ 3-dose series) 2010 COVID-19 Vaccine ( season) 2023 08/08/2023, 11/30/2021, 06/02/2020, Additional history exists Influenza Vaccine (#1) 2024 , 02/12/2024, 01/04/2022, Additional history exists SDOH Screening 08/04/2025 08/04/2024 Alcohol/Substance Use Screening 08/13/2025 08/13/2024 Depression Screening 08/13/2025 08/13/2024, 08/14/19 25 Disability Screening 08/13/2025 08/13/2024 Tobacco Screening 10/16/2025 10/16/2024 Lipid Panel 10/02/2027 10/01/2022, 05/2021, 04/04/2021 Cervical Cancer Screening 07/22/2029 HPV/Cotest 07/22/2029 07/22/2024, 07/16/2022 Pap Smear 07/22/2029 07/22/2024, 0310/2022, 03/21/2020 DTaP/Tdap/Td Vaccines (3 - Td or Tdap) 02/11/2034 02/12/2024, 10/12/2016 Zoster Vaccines (1 of 2) 2041 Meningococcal Vaccine Aged Out 03/21/2018 No lalita carlyn eligible based on patient's age to complete this topic HIV Screening Completed 10/01/2022, 07/2022, 04/12/2021, Additional history exists Hepatitis C Screening Completed 10/01/2022 , 07/17/2022, 04/25/2022, Additional history exists Pneumococcal Vaccine: Pediatrics (0 to 5 Years) and At-Risk Patients (6 to 49) Years Completed 08/08/2023 RSV Patients and Patients Aged 60 years or older Completed 03/30/2024 HIB Vaccines Aged Out No longer eligi [...] Procedure Name Priority Date/Time Associated Diagnosis Comments XR LUMBAR SPINE 6V W BENDING Routine 11/27/2024 4:45 PM EDT XR SACROILIAC JOINTS 3+ VIEWS Routine 11/27/2024 4:45 PM EDT CULTURE, URINE, ROUTINE Routine 10/16/2024 9:26 AM EDT Lumbar back pain POCT URINALYSIS DIPSTICK Routine 10/16/2024 9:24 AM EDT Lumbar back pain HM PAP/HPV Routine 07/22/2024 12:00 AM EDT [...] Recently Relevant to Health Maintenance Results * XR LUMBAR SPINE 6V W BENDING (11/27/2024 4:45 PM EDT) Anatomical Region Laterality Modality Abdomen Radiographic Winsome ging 11/27/2024 4:45 PM EDT Narrative 11/27/2024 4:46 PM EDT [address] [address] XRay Report Signed Patient: Rain Adair MR#: [id number] : 1990 Acct:[id number] Age/Sex: 34 / F ADM Date: 11/27/24 Loc: [facility] Attending Dr: Cameron Edgar DC Ordering Physician: Pavithra Rodríguez Date of Service: 11/27/24 Procedure(s): XR lumbar spine 6V w bending Accession Number(s): [id number] cc: Shahla Person MD; Pavithra Rodríguez CLINICAL HISTORY: M47.816 - Spondylosis without myelopathy or radiculopathy, lumbar region 7 views lumbar spine Comparison: None provided Findings: Normal alignment. No acute fractures or dislocation. No significant degenerative change. IMPRESSION: No acute findings. This document has been electronically signed by: Elenita Almeida MD on 11/27/2024 16:45:55 Dictated By: Elenita Almeida MD Signed By: <Electronically signed by Elenita Almeida MD in OV> 11/27/24 1646 DD/ 1645 TD/TT: 11/27/24 1645 Patent Clerk: Procedure Note Donotuseinterpreter, Image - 11/27/[address] [address] XRay Report Signed Patient: Rain Adair AMR#: [id number] : 1990Acct:[id number] Age/Sex: 34 / FADM Date: 11/27/24 Loc: [facility] Attending Dr: Cameron Edgar DC Ordering Physician: Pavithra Rodríguez Date of Service: 11/27/24 Procedure(s): XR lumbar spine 6V w bending Accession Number(s): [id number] cc: Shahla Person MD; Pavithra Rodríguez CLINICAL HISTORY: M47.816 - Spondylosis without myelopathy orradiculopathy, lumbar region 7 views lumbar spine Comparison: None provided Findings: Normal alignment. No acute fractures or dislocation. No significant degenerative change. IMPRESSION: No acute findings. This document has been electronically signed by: Elenita Almeida MD on 11/27/2024 16:45:55 Dictated By: Elenita Almeida MD Signed By: <Electronically signed by Elenita Almeida MD in OV> 11/27/241645 DD/ 44 TD/TT: 11/27/241644 Patent Clerk: [facility] External Provider IMG XR PROCEDURES Final Result * XR Sacroiliac Joints 3+ Views (11/27/2024 4:45 PM EDT) Anatomical Region Laterality Modality Sacroiliac joint, Pelvis Radiogr aphic Imaging 11/27/2024 4:45 PM EDT Narrative 11/27/2024 4:45 PM EDT [place] [address] XRay Report Signed Patient: Rain Adair MR#: [id number] : 1990 Acct:[id number] Age/Sex: 34 / F ADM Date: 11/27/24 Loc: [facility] Attending Dr: Cameron Edgar DC Ordering Physician: Pavithra Rodríguez Date of Service: 11/27/24 Procedure(s): XR sacroiliac joint min 3V Accession Number(s): [id number] cc: Shahla Person MD; Pavithra Rodríguez CLINICAL HISTORY: M53.3 - Sacrococcygeal disorders, not elsewhere classified 3 views sacroiliac joints Comparison: None provided Findings No acute fractures. No significant degenerative change. No erosions. IMPRESSION: No acute findings This document has been electronically signed by: Elenita Almeida MD on 11/27/2024 16:45:04 Dictated By: Elenita Almeida MD Signed By: <Electronically signed by Elenita Almeida MD in OV> 11/27/241644 DD/ 44 TD/TT: 11/27/241644 Patent Clerk: Procedure Note Donignaciater, Image - 11/27/2024 [place] [address] XRay Report Signed Patient: Rain Adair AMR#: [id number] : 1990Acct:[id number] Age/Sex: 34 / FADM Date: 11/27/24 Loc: HO.XRAY Attending Dr: Cameron Edgar DC Ordering Physician: Pavithra Rodríguez Date of Service: 11/27/24 Procedure(s): XR sacroiliac joint min 3V Accession Number(s): [id number] cc: Shahla Person MD; Pavithra Rodríguez CLINICAL HISTORY: M53.3 - Sacrococcygeal disorders, not elsewhereclassified 3 views sacroiliac joints Comparison: None provided Findings No acute fractures. No significant degenerative change. No erosions. IMPRESSION: No acute findings This document has been electronically signed by: Elenita Almeida MD on 11/27/2024 16:45:04 Dictated By: Elenita Almeida MD Signed By: <Electronically signed by Elenita Almeida MD in OV> 11/27/241644 DD/ 44 TD/TT: 11/27/241644 Patent Clerk: [facility] External Provider IMG XR PROCEDURES Final Result * Culture, Urine, Routine (10/16/2024 9:26 AM EDT) Urine Urine specimen obtained by clean catch procedure / Unknown 10/16/2024 9:26 AM EDT 10/16/2024 12:59 PM EDT Comment:[facility] - 10/17/2024 1:46 PM EDT Urine Culture Report Result Urine Culture 10,000 to 50,000 cfu/ml Urine Culture Mixed bacterial aranza characteristic of Urine Culture urogenital contamination. Specimen Source: Urine clean catch Shahla Rocha MD LAB MICROBIOLOGY - NERFL ORDERABLES Final Result [facility] [address] [place] [address] [phone] * POCT Urinalysis (10/16/2024 9:24 AM EDT) Color, UA Yellow Clarity, UA Clear Glucose, UA Negative Bilirubin, UA Negative Ketones, UA Negative Spec Grav, UA 1.025 Blood, UA Negative Negative, None Detected pH, UA 6.0 Protein, UA Negative Urobilinogen, UA 0.2 Leukocytes, UA Negative Negative, Rare, Trace Nitrite, UA Negative Negative, None Detected Appearance, UA clear QC Media Lot # [id number] Lot# Expiration Date [id number] Urine 10/16/2024 9:24 AM EDT Shahla Rocha MD POINT OF CARE TEST EN TER/EDIT ORDERABLES Final Result * HM PAP/HPV (07/22/2024 12:00 AM EDT) Pathologist [facility] Pap Smear 1. NILM 1. NILM [facility] HPV Not Detected Undetected, Indeterminat e, Quantitative , Not Detected [facility] Historical Provider HEALTH MAINTENANCE Edited Result - Final [facility] [address] [place] [address], * Hepatitis C Antibody with Reflex to HCV, RNA, Quantitative, Real-Time PCR (10/01/2022 9:17 AM EDT) Hepatitis C Antibody NON-REACT TAM NON-REACT TAM [facility] Index 0.06 <1.00 [facility] Comment: HCV antibody was non-reactive. There is no laboratory evidence of HCV infection. In most cases, no further action is required. However, if recent HCV exposure is suspected, a test for HCV RNA (test code 55294) is suggested. For additional information please refer to http://Highcon.Valldata Services/faq/PID62f0 (This link is being provided for informational/ educational purposes only.) Blood Venous blood specimen / Unknown 10/01/2022 9:17 AM EDT 10/01/2022 9:18 AM EDT Narrative [facility] - 10/02/2022 7:47 PM EDT FASTING:YES FASTING: YES us Petra Razo MD LAB BLOOD ORDERABLES Final Result [facility] [address], [place] [address] [facility] [place] [facility] [address] [place] [phone] * HIV-1/2 Antigen and Antibodies, Fourth Generation, with Reflexes (10/01/2022 9:17 AM EDT) [facility] HIV Antigen/Antibody, 4th Generation NON-REAC TIVE NON-REAC TIVE [facility] [place] [facility] Comment: HIV-1 antigen and HIV-1/HIV-2 antibodies were not detected. There is no laboratory evidence of HIV infection. PLEASE NOTE: This information has been disclosed to you from records whose confidentiality may be protected by state law. If your state requires such protection, then the state law prohibits you from making any further disclosure of the information without the specific written consent of the person to whom it pertains, or as otherwise permitted by law. A general authorization for the release of medical or other information is NOT sufficient for this purpose. For additional information please refer to http://Highcon.Hytle.ThePort Network/faq/ORV931 (This link is being provided for informational/ educational purposes only.) The performance of this assay has not been clinically validated in patients less than 2 years old. Blood Venous blood specimen / Unknown 10/01/2022 9:17 AM EDT 10/01/2022 9:18 AM EDT Narrative [facility] - 10/02/2022 7:47 PM EDT FASTING:YES FASTING: YES Petra Razo MD LAB BLOOD ORDERABLES Final Result Performing Organization Address City/[facility]/ZIP Co de Phone Number [facility] [address], [facility] [place] [address] [facility] [place] [facility] [address] [place] [address] * (ABNORMAL) Lipid Panel, Standard (10/01/2022 9:14 AM EDT) [facility] Signature Cholesterol, Total 130 <200 mg/dL [facility] [place] [facility] HDL Cholesterol 48(L) > OR = 50 mg/dL [facility] [place] [facility] Triglycerides 39 <150 mg/dL [facility] [place] [facility] LDL Cholesterol 71 mg/dL (calc) [facility] Comment: Reference range: <100 Desirable range <100 mg/dL for primary prevention; <70 mg/dL for patients with CHD or diabetic patients with > or = 2 CHD risk factors. LDL-C is now calculated using the Eulogio-Charlie calculation, which is a validated novel method providing better accuracy than the Friedewald equation in the estimation of LDL-C. Eulogio SS et al. NIDHI. 2013;310(19): 9745-4830 (http://education.ClassDojo/faq/DVK049) Chol/HDLC Ratio 2.7 <5.0 (calc) [facility] [place] [facility] Non-HDL Cholesterol 82 <130 mg/dL (calc) [facility] [place] [facility] Comment: For patients with diabetes plus 1 major ASCVD risk factor, treating to a non-HDL-C goal of <100 mg/dL (LDL-C of <70 mg/dL) is considered a therapeutic option. Blood Venous blood specimen / Unknown 10/01/2022 9:14 AM EDT 10/01/2022 9:15 AM EDT Narrative [facility] - 10/01/2022 10:04 PM EDT FASTING:YES FASTING: YES us Shahla Rocha MD LAB BLOOD ORDERABLES Final Result Performing Organization Address City/[facility]/ZIP Co de Phone Number [facility] [address], [place] [address] [facility] [address] [place] [address] from Last 3 Months or Most Recently Relevant to Health Maintenance [place] [address] [place] [address] C3 Care Teams Hospital Cleaning Specialist Relationship Specialty Start Date End Date Shahla Person MD [address] [place] [phone] PCP - General Family Medicine 12/12/18
--- OUTSIDE RECORDS SUMMARY | 2024-12-22 13:24 | XMS_ITS | Encounter Summary ---
Author Organization [employer] Address [address] [place] [address] 7 [place] [address] Care Team Providers Care News Production Supervisor Name Role Phone Shahla Person MD Primary Care Provide r Reason for Visit * Reason Comments Med Refill Encounter Details Date Type Department Care Team ([facility] st Contact Info) Description 01/16/2023 Refill [facility] MEDICINE [address] [place], [place] [phone] Shahla ePrson MD [address] [place] [address] Obesity (BMI 35.0-39.9 without comorbidity) Social History [...] comorbidity) documented in this encounter Care Teams News Production Supervisor Relationship Specialty Start Date End Date Shahla Person MD [address] [place] [address] PCP - General Family Medicine 12/12/18 documented as of this encounter
--- OUTSIDE RECORDS SUMMARY | 2024-12-22 13:24 | XMS_ITS | Clinical Summary ---
Author Organization [email or web address] ity Address [address] [place] [address] Care Team Providers Care Supervisor Chassis Assembly Name Role Phone Shahla Person MD Primary [...] Care Team (Late st Contact Info) Description 12/24/2024 9:30 AM EDT Office Visit Bariatric Surgery - [address] [place] [address] Tiffany Hansen MD [address] [place] [phone] Health Maintenance Due Date Last Done Comments [...] 03/25/2022 Social Influencers of Health Screening 03/25/2022 Depression Screening 04/22/2024 COVID-19 Vaccine ( - 2023-2 5 season) 2024 Influenza Vaccine (#1) 2024 03/20/2016 HIB Vaccines [...] topic Insurance MEDICAID - [place] Care Teams Supervisor Chassis Assembly Relationship Specialty Start Date End Date Shahla Person MD [address] [phone] PCP - General Internal Medicine 03/29/20
--- OUTSIDE RECORDS SUMMARY | 2024-12-22 13:24 | XMS_ITS | Encounter Summary ---
Author Organization [employer] Address [address] [facility] 7t [place] [address] Care Team Providers Care Snow Remover Name Role Phone Shahla Person MD Primary Care Provide r Encounter Details Date Type Department Care Team (Late st Contact Info) Description 08/12/2024 Orders Only [facility] MED & PEDS [address] [place], [place] [phone] Randa Meredith Social History Tobacco Use Types [...] MAINTENANCE Edited Result - Final [facility] [address] [place] [address], documented in this encounter Visit Diagnoses Not on filedocumented in this encounter Additional Health Concerns Assessment Noted Time PHQ-9 Depression Total Score: 0 05/02/19 24 1:31 PM EST documented as of this encounter Care Teams Snow Remover Relationship Specialty Start Date End Date Shahla Person MD [address] [place] [address] PCP - General Family Medicine 12/12/18 documented as of this encounter
== END 2024-12-22 12:04 | disposition home or self-care (01) ==
LOC: HO.HAP 12:03
PROVIDERS: Visit Provider Internal Medicine
DX: Z46.1 Encounter for fitting and adjustment of hearing aid (principal); H90.3 Sensorineural hearing loss, bilateral
CPT/HCPCS: V5266

== ENCOUNTER 2025-01-27 10:37 | Outpatient (REF) | payer MEDICAID, SELFPAY ==
[2025-01-28 05:58] LABS: Rubeola IgG (Measles) >300.00 AU/mL
[2025-01-28 08:03] LABS: HBS Num1 156.62 mIU/mL (0-7.99); ~Hepatitis B Surface Antibody REACTIVE (Nonreactive)
[2025-01-31 12:22] LABS: TS Negative Control Passed; TS Panel A 0; TS Panel B 0; TS Positive Control Passed; TSpotTB Negative (Negative)
== END 2025-01-27 10:38 | disposition home or self-care (01) ==
LOC: HO.HHCL 10:37
PROVIDERS: PCP Internal Medicine; Visit Provider Internal Medicine
DX: Z00.00 Encounter for general adult medical examination without abnormal findings (principal); Z11.1 Encounter for screening for respiratory tuberculosis; Z11.59 Encounter for screening for other viral diseases; Z01.84 Encounter for antibody response examination
CPT/HCPCS: 36415; 86481; 86706; 86735; 86762; 86765; 86787